=== PATIENT | female | born 1965 | race Caucasian/White ===

== ENCOUNTER 2019-07-02 11:44 | Inpatient (IN) ==
[2019-07-02] MEDS ORDERED: ONDANSETRON 4 MG/2 ML VIAL IV ONE (12:09)
[2019-07-02] MEDS ORDERED: HYDROmorphone 2 MG/ML VIAL IV PRN (12:09)
[2019-07-02] MEDS ORDERED: LACTATED RINGERS 1,000 ML IV ONE (12:09)
--- NOTE | 2019-07-02 12:12 | Emergency Department Note ---
Nausea/Vomiting/Diarrhea HPI - General Chief complaint: Nausea/Vomiting/Diarrhea Stated complaint: abdominal pain vomiting Time Seen by Provider: 07/02/19 12:01 Source: patient Mode of arrival: ambulatory Limitations: no limitations - History of Present Illness HPI Narrative: This patient has had left lower quadrant pain with nausea vomiting since yeste rday. She has had it before and it got better on its own. She is never been diagnosed with diverticulitis. Nothing makes pain worse but she tries to drink fluids she gets nauseated and comes right back up. She has not been able take any of her current medications. She does have a history of congestive heart failure and some congenital heart disease. She has had no recent edema. No recent cough sore throat or shortness of breath. MD complaint: nausea, vomiting, abdominal pain Onset (ago): hour(s) Description of Vomiting: watery Associated Abdominal Pain: Yes Location of pain: LLQ Severity: moderate Quality: stabbing Consistency: constant Improves with: none Worsens with: none - Related Data Home Medications Medication Instructions Recorded Confirmed Carvedilol [Coreg] 0 mg PO BID 10/28/15 07/02/19 Dabigatran Etexilate Mesylate 0 mg PO BID 10/28/15 10/28/15 [Pradaxa] Furosemide [Lasix] 40 mg PO DAILY 10/28/15 07/02/19 Levothyroxine Sodium [Synthroid] 200 mcg PO DAILY 10/28/15 07/02/19 Spironolactone [Aldactone] 0 mg PO DAILY 10/28/15 07/02/19 Lisinopril [Zestril] 2.5 mg PO DAILY 07/02/19 07/02/19 Sotalol HCl [Sorine] 80 mg PO BID 07/02/19 07/02/19 Allergies Allergy/AdvReac Type Severity Reaction Status Date / Time codeine Allergy Mild ITCHING Verified 10/28/15 18:36 iodine [IODINE] Allergy Unknown RASH Verified 10/28/15 18:36 Review of Systems All systems ED: reviewed and negative except as stated. Past Medical History - Past Medical History [facility] Narrative: Medical History Pain of left calf (Acute) Medical history: Reports: atrial fibrillation, CHF Surgical history ED: Reports: non-contributory, other (She had a cardiac ablation last year for atrial fibrillation.) - Social History smoking status: Never smoker Physical Exam Limitations: no limitations General appearance: alert Head: atraumatic Eye: Present: normal appearance ENT: Present: normal exam Neck: Present: normal inspection Chest: Present: normal inspection Respiratory: Present: normal lung sounds bilaterally Cardiovascular: Present: regular rate, normal rhythm, normal heart sounds Abdominal: Present: soft, tenderness, normal bowel sounds. Absent: distention, guarding, rebound, rigidity Abdominal tenderness: Present: LLQ, mild Neurological: Present: alert Psychiatric: Present: normal affect Skin: Present: warm, dry Course Vital Signs Temperature 98.3 F 07/02/19 11:48 Pulse Rate 70 07/02/19 11:48 Respiratory Rate 16 07/02/19 11:48 Blood Pressure 129/75 07/02/19 11:48 Pulse Oximetry (%) 97 07/02/19 11:48 Temperature 98.3 F 07/02/19 11:48 Pulse Rate 70 07/02/19 12:47 Respiratory Rate 16 07/02/19 11:48 Blood Pressure 111/84 07/02/19 12:46 Pulse Oximetry (%) 95 07/02/19 12:47 Nausea/Vomiting/Diarrhea - MDM Narrative Medical decision making narrative: CT scan showed a partial small bowel obstruction in the jejunal area. No evidence of diverticulitis. No other pathology. Patient tells me that the only surgery she has had was hernia mesh repair in her lower abdomen where she had had a pacemaker placed when she was a child. Her pacemaker is now been placed in the usual position. - Lab Data Lab results reviewed: Yes I reviewed the patient's lab results. Result diagrams: 07/02/19 12:09 07/02/19 12:09 Lab Results 07/02/19 07/02/19 Range/Units 12:09 12:09 WBC 9.6 (4.50-11.00) K/mcL RBC 4.47 (3.59-5.38) M/mcL Hgb 15.4 (11.2-15.7) g/dL Hct 43.6 (34.1-44.9) % MCV 97.5 (80.0-100.0) fL MCH 34.5 H (26.0-34.0) pg MCHC 35.3 (31.0-36.0) g/dL RDW 12.5 (11.5-14.5) % Plt Count 172 (140-440) K/mcL MPV 10.3 (7.4-10.4) fL Gran % 81.4 H (38.0-78.0) % Lymph % (Auto) 10.6 L (15.5-49.0) % Delta % (Auto) 7.5 (1.0-12.0) % Eos % (Auto) 0.2 (0.0-7.0) % Baso % (Auto) 0.3 (0.0-2.0) % Gran # 7.85 (1.80-8.00) K/mcL Lymph # (Auto) 1.02 L (1.50-4.80) K/mcL Delta # (Auto) 0.72 (0.10-0.90) K/mcL Eos # (Auto) 0.02 (0.00-0.70) K/mcL Baso # (Auto) 0.03 (0.00-0.30) K/mcL Sodium 136 (133-145) mmol/L Potassium 3.5 (3.3-5.1) mmol/L Chloride 92 L (96-108) mmol/L Carbon Dioxide 29 (22-30) mmol/L Anion Gap 15.0 (8-16) BUN 22 H (6-20) mg/dl Creatinine 0.8 (0.6-1.1) mg/dl GFR Calculation 85 Glucose 121 H (70-105) mg/dL Calcium 9.7 (8.6-10.4) mg/dl Total Bilirubin 4.3 H (0.0-1.0) mg/dL AST 27 (0-37) U/l ALT 28 (0-40) U/l Alkaline Phosphatase 113 (39-117) U/L Total Protein 8.4 (5.9-8.4) gm/dL Albumin 4.8 (3.2-5.2) gm/dL Globulin 3.6 (2.2-3.7) gm/dL Albumin/Globulin Ratio 1.3 (1.0-2.3) - Radiology Data Radiology results reviewed: Yes I reviewed the patient's radiology results. Disposition Pt seen by HOUSEHOLD PERSONAL ASSISTANT/PA only: No Clinical Impression: Partial small bowel obstruction Disposition: Xfer As Outpt/Obs ([facility]) Condition: Good Referrals: Evelin Oden ARNP [Primary Care Provider] - Time of Disposition: 13:37
[2019-07-02 12:52] LABS: Basophils # (Auto) 0.03 K/mcL (0.00-0.30); Basophils % (Auto) 0.3 % (0.0-2.0); Eosinophils # (Auto) 0.02 K/mcL (0.00-0.70); Eosinophils % (Auto) 0.2 % (0.0-7.0); Granulocytes % (Auto) 81.4 % (38.0-78.0); Hematocrit 43.6 % (34.1-44.9); Hemoglobin 15.4 g/dL (11.2-15.7); Lymphocytes # (Auto) 1.02 K/mcL (1.50-4.80); Lymphocytes % (Auto) 10.6 % (15.5-49.0); Mean Cell Volume 97.5 fL (80.0-100.0); Mean Corpuscular HGB Conc 35.3 g/dL (31.0-36.0); Mean Platelet Volume 10.3 fL (7.4-10.4); Monocytes # (Auto) 0.72 K/mcL (0.10-0.90); Monocytes % (Auto) 7.5 % (1.0-12.0); Platelet Count 172 K/mcL (140-440); RBC 4.47 M/mcL (3.59-5.38); Red Cell Distribution Width 12.5 % (11.5-14.5); WBC 9.6 K/mcL (4.50-11.00)
--- NOTE | 2019-07-02 13:03 | Cat Scan Report ---
CLINICAL INFORMATION: Left lower quadrant pain and vomiting COMPARISON: 01/15/[address] TECHNIQUE: Following enteric contrast, 80 cc of Isovue-370 were injected intravenously, and 60 seconds later, 0.625 mm helical slices were obtained from the mid heart through the subtrochanteric regions. Following reconstruction, 2.5 mm sagittal, coronal and axial reformatted images were processed and reviewed at bone, lung and soft tissue windows. Five minutes later, 0.625 mm helical slices were obtained from the mid heart through the kidneys and viewed at soft tissue windows.The exam was performed using radiation dose optimization techniques including, but not limited to, automated exposure control, adjustment of the mA and/or kV according to patient size and use of iterative reconstruction technique. FINDINGS: Lung bases show no abnormality. There are no effusions. The heart is markedly enlarged - pacer leads in stable satisfactory position. Abdominal images show mild fatty change within the liver which is mildly enlarged. 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 The hepatic veins are dilated suggesting elevated right heart pressures. No focal hepatic lesions. The pancreas, both adrenal glands, kidneys and aorta are normal. Spleen is unremarkable. Prominent accessory spleen seen in the paracolic gutter - as previously seen. Pelvic images pelvic images show the urinary bladder, postmenopausal uterus and region of the ovaries are all normal. The stomach, duodenum and multiple loops of jejunum are moderately dilated to the proximal ileal level in the mid abdomen. At this point, there is stricture or adhesions resulting in high-grade partial small bowel obstruction. The distal small bowel and colon are decompressed. Small amount of free fluid is noted in the true pelvis which may represent third spacing. A 5 cm anterior abdominal hernia contains only mesenteric fat which is unchanged. Bone windows show extensive postsurgical changes no focal osseous lesions IMPRESSION: High-grade proximal ileal obstruction due to adhesion or stricture. Small amount of free fluid in the true pelvis suggest early third spacing. No free air. Prominent accessory spleen in the left paracolic gutter. 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 Mild hepatic enlargement with dilated hepatic veins suggesting mild congestive hepatopathy related to elevated right heart pressures. Interpreted and Authenticated by: Branden Alicia 07/02/19
[2019-07-02 13:13] LABS: ALT/SGPT 28 U/l (0-40); AST/SGOT 27 U/l (0-37); Albumin 4.8 gm/dL (3.2-5.2); Albumin/Globulin Ratio 1.3 (1.0-2.3); Alkaline Phosphatase 113 U/L (39-117); Bilirubin,Total 4.3 mg/dL (0.0-1.0); Blood Urea Nitrogen 22 mg/dl (6-20); Calcium 9.7 mg/dl (8.6-10.4); Carbon Dioxide 29 mmol/L (22-30); Chloride 92 mmol/L (96-108); Globulin 3.6 gm/dL (2.2-3.7); Glomerular Filtration Rate 85; Glucose 121 mg/dL (70-105)
[2019-07-02] MEDS ORDERED: PROMETHAZINE 25 MG/ML VIAL IM PRN (13:39)
[2019-07-02 14:41] LABS: Appearance,Urine CLEAR; Bacteria,Urine 0 /hpf (0); Bilirubin,Urine NEG (NEG); Color,Urine YELLOW; Culture Indicated,Urine NO; Glucose,Urine (UA) NEGATIVE (NEG); Ketones,Urine 20 mg/dL (NEG); Leukocyte Esterase,Urine NEG /uL (NEG); Mucus,Urine FEW /hpf (0); Nitrate,Urine NEG (NEG); Protein,Urine NEG (NEG); Urine Blood NEG mg/dL (<0.03); Urine RBC 2 /hpf (0-1); Urine Squamous Epithelial Cell 1 /hpf (0-4); Urine WBC 1 /hpf (0-4); Urobilinogen,Urine NEG (NEG)
[2019-07-02] MEDS ORDERED: ONDANSETRON 4 MG/2 ML VIAL IV PRN (15:23)
[2019-07-02] MEDS ORDERED: BENZOCAINE 1 SPRAY BOTTLE TOPICAL PRN (15:24)
[2019-07-02] MEDS ORDERED: METOPROLOL TARTRATE 5 MG/5 ML VIAL IV PRN (15:33)
--- NOTE | 2019-07-02 15:42 | General Surg History&Physical ---
History of Present Illness Patient information: Note initiated : 07/02/19 at 3:36 pm Service Date, if different from initiated Date: [] Patient: Peg Kitchen a 53 y/o F admitted on 07/02/19 for abdominal pain vomiting. Chief Complaint: [] Chief complaint: Nausea & vomiting HPI: Ms. Kitchen is a 53 year old F with multiple prior cardiac surgeries secondary to a congenital heart defect. VSD, PDA,etc, She has had pacemaker since those surgeries and about 10-15 years ago she had her pacemaker placed transvenously and her abdominal battery pack was removed but for some reason she had a hernia repair done with mesh at the same time. She has not had any other abdominal surgery and has not had any problems with bowel obstructions or abdominal surgery in the interviening 15 or so years. Starting yesterday she c/o vague abdominal symptoms and has vomited multiple times in the past 24-[address] scan done thru the ED show a high grade SBO presumptively from adhesions. Review of Systems - Constitutional no anorexia, no chills, no fatigue - EENT Nose, mouth and throat: no abnormal hearing, no headache(s) - Cardiovascular leg edema, other (permanently paced heart rhythm), no chest pain, no chest pain at rest, no claudication - Respiratory no cough, no dyspnea, no dyspnea on exertion - Gastrointestinal abdominal pain, belching, bloating, change in bowel habits, vomiting, no diarrhea, no melena - Musculoskeletal no atrophy, no numbness, no tingling - Integumentary no change in hair, no change in nails, no change in pigmentation, no rash - Neurological no abnormal hearing, no abnormal movements, no abnormal speech, no behavioral ch anges, no dizziness, no focal weakness - Psychiatric no anxiety, no auditory hallucinations, no behavioral changes, no change in appetite - Endocrine no change in body appearance, no cold intolerance, no excessive sweating, no fatigue, no flushing, no heat intolerance - Hematologic/Lymphatic no easy bleeding, no easy bruising Past History Past medical history: As per HPI, cronic CHF and Paced heart rhythm secondary to Congenital Heart defects Past surgical history: multiple pace makers, Ventral hernia repair with mesh 15+ years ago Past family history: not contributory to this present problem Past social history: Not , no history of smoking or other tobacco use. On Disability because of her chronic heart problems Medications and Allergies Home Medications Medication Instructions Recorded Confirmed Type Carvedilol [Coreg] 12.5 mg PO BID 10/28/15 07/02/19 History Furosemide [Lasix] 40 mg PO DAILY 10/28/15 07/02/19 History Levothyroxine Sodium [Synthroid] 200 mcg PO DAILY 10/28/15 07/02/19 History Spironolactone [Aldactone] 0 mg PO DAILY 10/28/15 07/02/19 History Aspirin [Adult Low Dose Aspirin EC] 1 tab PO DAILY 07/02/19 07/02/19 History Lisinopril [Zestril] 2.5 mg PO DAILY 07/02/19 07/02/19 History Sotalol HCl [Sorine] 80 mg PO BID 07/02/19 07/02/19 History Allergies Allergy/AdvReac Type Severity Reaction Status Date / Time codeine Allergy Mild ITCHING Verified 10/28/15 18:36 iodine [IODINE] Allergy Unknown RASH Verified 10/28/15 18:36 Exam Temp Pulse Resp BP Pulse Ox 98.3 F 70 16 119/64 97 07/02/19 11:48 07/02/19 14:30 07/02/19 14:30 07/02/19 14:30 07/02/19 14:30 - General physical appearance well developed, well nourished, no distress, moderate pain - Eyes normal ocular movement. negative: deviation, loss of movement - ENT normal nares, no hearing loss, no congestion - Head Head exam IM: Present: atraumatic, normal inspection, normocephalic - Neck no masses, no bruits - Cardiovascular Cardiovascular exam IM: Present: normal rate and rhythm - Respiratory normal respiratory effort, clear to percussion, clear to auscultation - Abdomen Abdomen: Present: tender, surgical scars, distended. Absent: bowel sounds, wound - Genitourinary Present: normal external genitalia - Integumentary Present: no rash, no abnormal pigmentation - Neurologic Present: normal coordination, normal sensation. Absent: disoriented - Musculoskeletal Present: normal posture - Psychiatric Present: oriented to time, oriented to person, oriented to place, speech is normal, memory intact Results - Results CT scan - abdomen: report reviewed, image reviewed Assessment and Plan (1) Congenital heart defect no changes to present meds etc, will get IM consult for possible Surgical clearance and Meds while NPO Status: Chronic (2) Partial small bowel obstruction NG decompression and follow Status: Acute (3) CHF (congestive heart failure) per IM consult Status: Acute
--- NOTE | 2019-07-02 17:11 | Internal Medicine Consult Note ---
Medical - CN: HPI - Data of Consult Consult date: 07/02/19 Requesting physician: Carlos King Primary Care Provider: Evelin Oden - Consult Narrative Reason for consult: Management of med issues History of present illness: Ms. Kitchen is a 53 year old F with history of congenital heart disease, A. fib s tatus post recent ablation in February 2019 who was in her baseline state of health until 2 days prior to presentation started noting excessive abdominal pain associated with nausea and intractable bilious vomiting. She was admitted for bowel obstruction under surgery service. Hospital service was consulted by surgery for management of medical issues. Patient carries a complex past medical history including CHD VSD/PDA status post multiple surgeries in the early years and pacemaker placement 15 years ago. She follows up with [facility] Dr. Leung and has been on flecainide until recently. She underwent ablation in February 2019 has been in sinus since. Her current medications include Coreg/Pradaxa/sotalol. She also carries history of hypertension/hypothyroidism. I do not have access to recent echocardiogram from the EMR. I will attempt to obtain medical records from [facility] office on Wednesday. She is currently n.p.o./NG decompression and likely undergo surgery. She has not taken her regular cardiac medications. At the time of evaluation patient is alert and oriented. She has NG decompression ongoing. Denies abdominal pain, chest pain, bloody stool, bloody urine, headache photophobia. She has had one similar episode around March that self resolved. She has not had any hospitalization for congestive heart failure. Addendum Case discussed with Dr. Loo syrup maker cook at [facility]. She recommends using metoprolol as needed if patient demonstrated atrial fibrillation. Sotalol needs to be held and during reinitiation will require 2 sets of EKGs and 8 to 12 hours monitoring for QT interval. Review of systems A 10 point review system was performed and is negative except for ones cussed above CC: Carlos King MD Medical - CN: PM Medical history: Atrial fibrillation Hypothyroidism History of CHF Hypertension Surgical history: Congenital heart disease surgery in early years Pacemaker Recent ablation for A. fib February 2019 Pertinent family history: Sister breast cancer Social history: Lives with mother On chronic disability No smoking alcoholism Medical - CN: Meds Home Medications Medication Instructions Recorded Confirmed Type Carvedilol [Coreg] 12.5 mg PO BID 10/28/15 07/02/19 History Furosemide [Lasix] 40 mg PO DAILY 10/28/15 07/02/19 History Levothyroxine Sodium [Synthroid] 200 mcg PO DAILY 10/28/15 07/02/19 History Spironolactone [Aldactone] 0 mg PO DAILY 10/28/15 07/02/19 History Aspirin [Adult Low Dose Aspirin EC] 1 tab PO DAILY 07/02/19 07/02/19 History Lisinopril [Zestril] 2.5 mg PO DAILY 07/02/19 07/02/19 History Sotalol HCl [Sorine] 80 mg PO BID 07/02/19 07/02/19 History Allergies Allergy/AdvReac Type Severity Reaction Status Date / Time codeine Allergy Mild ITCHING Verified 10/28/15 18:36 iodine [IODINE] Allergy Unknown RASH Verified 10/28/15 18:36 Medical - CN: Exam - Constitutional Vitals: Temp Pulse Resp BP Pulse Ox 98.3 F 70 16 119/64 97 07/02/19 11:48 07/02/19 14:30 07/02/19 14:30 07/02/19 14:30 07/02/19 14:30 General appearance: no acute distress Exam: Alert oriented Head normocephalic Oral cavity dry Nose NG tube no ear discharge Neck no lymphadenopathy S1-S2 regular Pansystolic murmur Diminished breath sounds bases Abdomen/bowel sound sluggish, nontender nondistended Lower extremity no cyanosis clubbing or joint swelling Skin no suspicious lesion Psych alert cooperative Neuro nonfocal Medical - CN: Result - Labs CBC & Chem 7: 07/03/19 05:35 07/03/19 05:34 Labs: Short CBC 07/02/19 Range/Units 12:09 WBC 9.6 (4.50-11.00) K/mcL Hgb 15.4 (11.2-15.7) g/dL Hct 43.6 (34.1-44.9) % Plt Count 172 (140-440) K/mcL BMP 07/02/19 12:09 Sodium 136 Potassium 3.5 Chloride 92 L Carbon Dioxide 29 BUN 22 H Creatinine 0.8 Glucose 121 H Calcium 9.7 Liver Function 07/02/19 Range/Units 12:09 Total Bilirubin 4.3 H (0.0-1.0) mg/dL AST 27 (0-37) U/l ALT 28 (0-40) U/l Alkaline Phosphatase 113 (39-117) U/L Albumin 4.8 (3.2-5.2) gm/dL Urine 07/02/19 Range/Units 13:08 Urine Color Yellow Urine Appearance Clear Urine pH 7.0 (5.0-9.0) Ur Specific [place] 1.010 (1.003-1.030) Urine Protein Neg (NEG) mg/dL Urine Glucose (UA) Negative (NEG) mg/dL Medical - CN: A/P (1) Partial small bowel obstruction Status: Acute Assessment and plan: * Small bowel obstruction managed per surgery. Currently n.p.o./NG decompression Hospitalist consult for management of medical issues as below * History of CHD/CHF, complex past medical history including CHD/VSD/PDA. No recent echocardiogram available in chart. Patient has been on Coreg/sotalol and Pradaxa. At this time patient is n.p.o. recommend beta-hever IV and reserve amiodarone use for tachyarrhythmias if noted until further recommendations from [facility]. Assess with baseline EKG, start cardiac monitoring. Await records from [place] [facility] * History of atrial fibrillation currently in sinus status post ablation/on sotalol. Held in light of n.p.o.Continue with metoprolol as needed * History of hypertension -recommend IV labetalol/hydralazine for systolics over 140 until patient is able to take p.o. medications. * Hypothyroidism hold thyroxine until able to take orally * Prophylaxis currently on heparin Plan * IV beta-hever/IV amiodarone if indicated(evidence of A. fib) * Telemetry monitoring * baseline EKG * restart antihypertensives for systolics over 140 including hydralazine/labetalol * Bowel suction management per surgery
[2019-07-02] MEDS ORDERED: hydrALAZINE 20 MG/ML VIAL IV PRN (17:15)
[2019-07-02] MEDS: DEXTROSE 5%-1/2NS W/20MEQ KCL 1,000 ML IV SCH (17:20)
[2019-07-02] MEDS: HYDROmorphone 2 MG/ML VIAL IV PRN ×2 (18:23→22:41)
--- NOTE | 2019-07-02 18:30 | XRay Report ---
CLINICAL INFORMATION: ng tube placement - small bowel obstruction COMPARISON: Abdomen and pelvic CT 07/02/2019 FINDINGS: NG tube overlies the gastric body. The stomach and multiple loops of small bowel are moderately dilated compatible with high-grade small bowel obstruction. There is no free air. IMPRESSION: NG tube in satisfactory position tip in the gastric body. High-grade partial small bowel obstruction Interpreted and Authenticated by: Branden Alicia 07/02/19
[2019-07-02] MEDS: HEPARIN 5,000 UNIT/ML VIAL SQ SCH (20:02)
[2019-07-02] MEDS: FAMOTIDINE/PF 20 MG/2 ML VIAL IV SCH (20:02)
[2019-07-02] MEDS: 0.9 % SODIUM CHLORIDE 10 ML SYRINGE IV SCH (20:02)
[2019-07-03] MEDS: DEXTROSE 5%-1/2NS W/20MEQ KCL 1,000 ML IV SCH ×2 (00:18→08:44)
[2019-07-03] MEDS: HYDROmorphone 2 MG/ML VIAL IV PRN ×4 (03:07→11:01)
[2019-07-03] MEDS: 0.9 % SODIUM CHLORIDE 10 ML SYRINGE IV SCH (04:28)
[2019-07-03 06:31] LABS: Basophils # (Auto) 0.03 K/mcL (0.00-0.30); Basophils % (Auto) 0.4 % (0.0-2.0); Eosinophils # (Auto) 0.09 K/mcL (0.00-0.70); Eosinophils % (Auto) 1.1 % (0.0-7.0); Granulocytes % (Auto) 74.3 % (38.0-78.0); Hematocrit 38.9 % (34.1-44.9); Hemoglobin 13.4 g/dL (11.2-15.7); Lymphocytes # (Auto) 1.17 K/mcL (1.50-4.80); Lymphocytes % (Auto) 13.7 % (15.5-49.0); Mean Cell Volume 100.8 fL (80.0-100.0); Mean Corpuscular HGB Conc 34.4 g/dL (31.0-36.0); Mean Platelet Volume 10.1 fL (7.4-10.4); Monocytes % (Auto) 10.5 % (1.0-12.0); Platelet Count 141 K/mcL (140-440); RBC 3.86 M/mcL (3.59-5.38); Red Cell Distribution Width 12.6 % (11.5-14.5); WBC 8.6 K/mcL (4.50-11.00)
[2019-07-03 07:04] LABS: Blood Urea Nitrogen 19 mg/dl (6-20); Calcium 8.7 mg/dl (8.6-10.4); Carbon Dioxide 31 mmol/L (22-30); Chloride 97 mmol/L (96-108); Glomerular Filtration Rate 100; Glucose 137 mg/dL (70-105)
--- NOTE | 2019-07-03 07:58 | XRay Report ---
CLINICAL INFORMATION: Follow-up small bowel obstruction TECHNIQUE: Supine and upright abdomen COMPARISON: Previous CT scan dated 07/02/2019. Previous plain film examination dated 07/02/2019 FINDINGS: Bowel gas pattern is abnormal. There continues to be some fecal material within the colon. Prominent gas-filled small bowel. This measures approximately 4 cm in cross-sectional diameter. There are scattered air-fluid levels. Partial remains consistent with at least partial mechanical small bowel obstruction. No pneumoperitoneum. No biliary or portal venous gas. No pneumatosis. There are long length spinal rods and laminar hooks in the lower thoracic and lumbar spines. There are multiple surgical clips in the upper abdomen and lower thorax IMPRESSION: 1. Abnormal bowel gas pattern consistent with at least partial mechanical small bowel obstruction 2. No significant interval change since 07/02/2019 Interpreted and Authenticated by: Branden Hester 07/03/19
--- NOTE | 2019-07-03 08:04 | Internal Med Progress Note ---
Medical - PN: Subj Patient information: Note initiated : 07/03/19 at 8:03 am Service Date, if different from initiated Date: [] Patient: Peg Kitchen a 53 y/o F admitted on 07/02/19 for abdominal pain vomiting. Chief Complaint: [] Interval history: Ms. Kitchen is a 53 year old F with history of congenital heart disease, A. fib status post recent ablation in February 2019 who was in her baseline state of health until 2 days prior to presentation started noting excessive abdominal pain associated with nausea and intractable bilious vomiting. She was admitted for bowel obstruction under surgery service. Hospital service was consulted by surgery for management of medical issues. Patient carries a complex past medical history including CHD VSD/PDA status post multiple surgeries in the early years and pacemaker placement 15 years ago. She follows up with [facility] cardiology Dr. Leung and has been on flecainide until recently. She underwent ablation in February 2019 has been in sinus since. Her current medications include Coreg/Pradaxa/sotalol. She also carries history of hypertension/hypothyroidism. I do not have access to recent echocardiogram from the EMR. I will attempt to obtain medical records from [facility] cardiology office on Wednesday. She is currently n.p.o./NG decompression and likely undergo surgery. She has not taken her regular cardiac medications. At the time of evaluation patient is alert and oriented. She has NG decompression ongoing. Denies abdominal pain, chest pain, bloody stool, bloody urine, headache photophobia. She has had one similar episode around March t self resolved. She has not had any hospitalization for congestive heart failure. Addendum Case discussed with Dr. Loo outside plant cable engineer at [facility]. She recommends using metoprolol as needed if patient demonstrated atrial fibrillation. Sotalol needs to be held and during reinitiation will require 2 sets of EKGs and 8 to 12 hours monitoring for QT interval. 07/02-Case discussed with surgery. Patient remains a high risk in terms of complexity and underlying comorbidities including history of congenital heart disease. Surgeon of the opinion that the patient would benefit from transfer to tertiary center due to high level of expertise/availability of cardiology services. I agree with the surgeons opinion patient should be transferred for further management. At this point time patient is currently n.p.o. on NG tube decompression. Home medications have been held at this time. - Constitutional Vitals: Vital Signs Temp Pulse Resp BP Pulse Ox 99.0 F 72 18 108/67 91 07/03/19 03:45 07/03/19 03:45 07/03/19 03:45 07/03/19 03:45 07/03/19 03:45 Period Temp Pulse Resp BP Sys/Michel Pulse Ox Last 24 Hr 98.3 F-99.2 F 67-72 14-20 70-153/55-109 91-98 Intake and Output 07/02/19 07/03/19 07/03/19 21:59 05:59 13:59 Intake Total 871 Output Total 800 800 Balance -800 71 Weight 171 lb 5 oz Intake & Output: Intake & Output 07/02/19 07/03/19 07/03/19 21:59 05:59 13:59 Intake Total 871 Output Total 800 800 Balance -800 71 Weight 171 lb 5 oz Intake: IV 871 Dextrose 5%-1/2Ns W/20Meq KCl 1 871 ,000 ml @ 125 mls/hr IV .Q8H [facility] Rx#:[id number] Output: Gastric Drainage 800 800 Right Nare 800 800 Other: # Voids 1 General appearance: no acute distress Exam: Alert oriented NG decompression Nontender nondistended abdomen Anxious Medical - PN: Obj Da - Labs CBC & Chem 7: 07/03/19 05:35 07/03/19 05:34 Labs: Abnormal Lab Results 07/03/19 07/03/19 07/02/19 05:35 05:34 13:08 MCV 100.8 H MCH 34.7 H Gran % Lymph % (Auto) 13.7 L Lymph # (Auto) 1.17 L Chloride Carbon Dioxide 31 H BUN Glucose 137 H Total Bilirubin Urine Ketones 20 A Urine RBC 2 H 07/02/19 07/02/19 12:09 12:09 MCV MCH 34.5 H Gran % 81.4 H Lymph % (Auto) 10.6 L Lymph # (Auto) 1.02 L Chloride 92 L Carbon Dioxide BUN 22 H Glucose 121 H Total Bilirubin 4.3 H Urine Ketones Urine RBC Meds: Medications Benzocaine (Cetacaine) 1 spray TOPICAL PRN PRN PRN Reason: mouth pain Famotidine (Pepcid) 20 mg IV Q12 [facility] Last Admin: 07/02/19 20:02 Dose: 20 mg Documented by: Heparin Sodium (Porcine) (Heparin) 5,000 unit SQ Q12 [facility] Last Admin: 07/02/19 20:02 Dose: 5,000 unit Documented by: Hydralazine HCl (Apresoline) 10 mg IV Q4-6HP PRN PRN Reason: Hypertension greater than 140 Hydromorphone HCl (Dilaudid) 0.5 mg IV Q2HP PRN; Protocol PRN Reason: Per Pain Protocol Last Admin: 07/03/19 05:44 Dose: 0.5 mg Documented by: Potassium Chloride/Dextrose/Sod Cl (Dextrose 5%-1/2ns W/20meq Kcl) 1,000 mls @ 125 mls/hr IV .Q8H [facility] Last Admin: 07/03/19 00:18 Dose: 125 mls/hr Documented by: Ondansetron HCl (Zofran) 4 mg IV Q6HP PRN PRN Reason: Nausea And Vomiting Promethazine HCl (Phenergan) 12.5 mg IM Q6HP PRN PRN Reason: Nausea And Vomiting Sodium Chloride (Saline Flush) 10 ml IV Q8 [facility] Last Admin: 07/03/19 04:28 Dose: Not Given Documented by: Medical - PN: A/P - Time Spent With Patient Total time spent is greater than 50% in coordination of care (as documented) at patient's floor/unit and/or counseling patient: 25 - 35 minutes (1) Partial small bowel obstruction Status: Acute Assessment and plan: * Small bowel obstruction management per surgery. Currently n.p.o./NG decompression. Patient will likely transfer to tertiary center in light of multiple cardiac comorbidities and complex nature of illness Hospitalist consult for management of medical issues as below * History of CHD/CHF, complex past medical history including CHD/VSD/PDA. Case discussed with cardiology at [place]. Patient has been on Coreg/sotalol and Pradaxa. At this time patient is n.p.o. recommend continuing beta-hever IV and reserve amiodarone use for tachyarrhythmias if noted. Baseline EKG a sensed V paced rhythm, continuing cardiac monitoring. Await transfer to [place] * History of atrial fibrillation currently in sinus status post ablation/on sotalol. Held in light of n.p.o.Continue with metoprolol as needed * History of hypertension -recommend IV labetalol/hydralazine for systolics over 140 until patient is able to take p.o. medications. * Hypothyroidism hold thyroxine until able to take orally * Prophylaxis currently on heparin Plan * Continue as needed IV beta-hever * Telemetry monitoring * IV hydralazine/labetalol if systolics over 140 * Bowel obstruction management per surgery, will likely transfer to tertiary center today Current Visit: Yes Medical - PN: Qual - Stroke Symptom Onset Unknown: No - VTE Deep Vein Thrombosis/Pulmonary Embolism Present on Admission: No
[2019-07-03] MEDS: HEPARIN 5,000 UNIT/ML VIAL SQ SCH (08:44)
[2019-07-03] MEDS: FAMOTIDINE/PF 20 MG/2 ML VIAL IV SCH (09:37)
--- NOTE | 2019-07-03 10:10 | Transfer Summary ---
DATE OF ADMISSION: 07/02/2019 DATE OF TRANSFER: ADMITTING DIAGNOSES: 1. Possible small bowel obstruction. 2. Congenital heart defects with need for permanent pacer. ADMITTING SURGEON: Carlos King MD CONSULTING PHYSICIANS: Yordan Adkins MD, Internal Medicine. The patient will be transferred to [place], Surgery Department with consultation to Cardiology. HOSPITAL COURSE: This is a 53-year-old female who had a congenital heart defect since a baby, had multiple operations at that time including a permanent pacemaker, which was placed in her abdomen at that time. About 15 years ago she had abdominal surgery and the pacemaker was removed from that area and placed in the standard transvenous placement and during that surgery a hernia was repaired apparently with mesh. The patient has not had any prior bowel obstruction problems and no other abdominal surgery, but presented approximately 48 hours before this, 24 hours before admission with nausea and vague abdominal pain and was seen in the emergency room in [place] at [facility], diagnosed with a possible small bowel obstruction but based on the adhesions. She was temporized with a nasogastric tube and resuscitated, but subsequent x-rays do not show complete resolution and there is no air in the colon on this morning's flat plate films. She has not passed gas for approximately 48 hours. The complication of her medical cardiac issues, having had an ablation procedure approximately 4 months ago for atrial fibrillation, and she is on multiple medications including Coreg, Pradaxa and sotalol which she has not had for approximately 2 days now. PLAN: Again, after discussion with Internal Medicine at this hospital, we decided it was in her best interest to transfer to a hospital with Cardiology available and after discussing with Surgery at [facility], they have accepted her. DISPOSITION: Transfer to [facility] in [place]. She will be transferred with IVs and a [facility]og[facility]. RPL:kh Job ID: [id number] Doc ID: [id number] Carlos King MD
== END 2019-07-03 11:15 | disposition short-term general hospital (02) | DRG 389 ==
LOC: ED 11:44 → MEDSUR 14:30 → OBSVTOIN 14:31 → INTOOBSV 14:31
PROVIDERS: ADMIT Specialist; ATTEND Specialist

== ENCOUNTER 2020-12-15 17:26 | Inpatient (IN) ==
[2020-12-15] MEDS ORDERED: 0.9 % SODIUM CHLORIDE 1,000 ML IV ONE (17:34)
--- NOTE | 2020-12-15 17:59 | EKG ---
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
--- NOTE | 2020-12-15 18:10 | Emergency Department Note ---
Syncope HPI General Chief Complaint: Syncope Stated Complaint: Synocpal Time Seen by Provider: 12/15/20 17:32 Source: EMS Mode of arrival: EMS Limitations: no limitations History of Present Illness HPI Narrative: Peg is a 55-year-old female who comes to the emergency department for evaluation of syncope that occurred earlier this evening when she was sitting on the couch at home with her . In the room she is not in any distress nor she complaining of any shortness of breath, chest pain, or diaphoresis. The patient does have a significant history of congestive heart failure and recently saw her driver material handler where an echocardiogram revealed that her ejection fraction was down to 15% so her dosage of Entresto was doubled from the lowest dose 9 days ago. The patient is also taking lisinopril, carvedilol, furosemide, and spironolactone for treatment of her congestive heart failure. The patient denies any history of recent orthopnea, paroxysmal nocturnal dyspnea, or lower extremity swelling. No history of ACS, PE, or aortic injury. The patient denies fever, nausea, vomiting, or chills. She has had no other changes to her medications made besides her Entresto. Patient reports that she does have a pacemaker that she has been living with ever since the age of 13 due to a history of patent foramen ovale that was surgically corrected with open heart surgery. Patient also has a history of A. fib which she is anticoagulated for on Eliquis. The patient is not reporting reduced food or water intake over the past few days. Patient states that she has not been experiencing any urinary issues or bowel issues. Patient is pleasant in the emergency department with no active complaints but her history is concerning for cardiogenic syncope so she will get worked up in the emergency department for ACS and we will likely have to consult with cardiology at [facility] as there is no service here at the hospital. No other modifying factors. Related Data Home Medications Medication Instructions Recorded Confirmed furosemide [Lasix] 40 mg PO DAILY 10/28/15 07/17/20 apixaban 5 mg tablet 5 mg PO BID 05/23/20 07/17/20 dofetilide 500 mcg capsule 500 mcg PO Q12H 05/23/20 07/17/20 magnesium 400 mg PO QDAY 05/23/20 07/17/20 spironolactone 25 mg tablet 25 mg PO DAILY tab 05/23/20 07/17/20 carvedilol 12.5 mg tablet 12.5 mg PO BID 06/12/20 07/17/20 sacubitril 97 mg-valsartan 103 mg 1 tab PO BID tab 07/17/20 07/17/20 tablet Previous Rx's Medication Instructions Recorded levothyroxine 200 mcg tablet 200 mcg PO DAILY #90 tab 07/16/20 levothyroxine 175 mcg tablet 175 mcg PO QDAY #30 tab 10/16/20 levothyroxine 150 mcg tablet 150 mcg PO QDAY #30 tab 10/22/20 Allergies Allergy/AdvReac Type Severity Reaction Status Date / Time codeine Allergy Mild ITCHING Verified 12/15/20 17:34 iodine [IODINE] Allergy Unknown RASH Verified 12/15/20 17:34 Review of Systems ROS ROS Narrative: Narrative: All systems ED: reviewed and negative except as stated. [facility] Narrative Patient History Narrative: Narrative: Medical/Surgical/Family History All Active Problems (Updated 12/15/20 @ 19:49 by Jag Bee PA-C) Congenital heart defect (Chronic) CHF (congestive heart failure) (Chronic) Pacemaker (Chronic) History of heart surgery (Chronic ~1970) History of surgery (Chronic ~2017) Atrial fibrillation (Chronic) Acquired hypothyroidism (Chronic) Anemia (Acute) Hypotension (Chronic) Medicare annual wellness visit, subsequent (Acute) Iron overload (Acute) Syncope (Acute) Medical History (Updated 12/15/20 @ 19:49 by Jag Bee PA-C) Acquired hypothyroidism Anemia Atrial fibrillation CHF (congestive heart failure) Congenital heart defect Hyperglycemia Hypotension Iron overload Medicare annual wellness visit, subsequent Pacemaker Pain of left calf Partial small bowel obstruction Surgical History History of back surgery [facility], Bone fusion History of cardiac radiofrequency ablation X2 History of heart surgery (~1970) Atrial septal defect History of open heart surgery (~1969) History of surgery (~2017) Pacemaker Insertion Family History Mother Cancer Hypertension Family/Other Cancer Aunt Sister Cancer Diabetes mellitus, type II Hypertension Grandmother Hypertension Maternal Social History Smoking Status: Never smoker Alcohol Intake Frequency: holiday/special occasion only Substance Use: does not use Exam Narrative Narrative: Narrative: General Limitations: no limitations General appearance: Present alert Head Head: Present atraumatic, normocephalic and normal inspection Eye Eye: Present normal appearance, PERRL and EOMI ENT ENT: Present normal exam, normal oropharynx and mucous membranes moist Neck Neck: Present normal inspection, full ROM and trachea midline Chest Chest: Present normal inspection and symmetric chest wall rise Respiratory Respiratory: Present normal lung sounds bilaterally Cardiovascular Cardiovascular: Present regular rate and normal rhythm Adbominal Abdominal: Present soft Extremities Extremities: Present normal inspection, full ROM and normal capillary refill Back Back: Present normal inspection and full ROM Neurological Neurological: Present alert and oriented X3 Psychiatric Psychiatric: Present normal affect and normal mood Skin Skin: Present warm (WNL), dry and normal color Course Course Course Narrative: 1807: Patient's history is concerning for cardiogenic syncope. Patient will require a pacemaker interrogation which does not appear to be possible at this facility and cardiology services which are also not accessible at this facility. This could be syncope caused by her recent change in her medication but given that the patient has an EF of 15 and has a complex past medical history of congestive heart failure with a number of different medications my recommendation would be for monitoring and follow-up with a driver material handler for medication review and further work-up. At this point time the patient will have an EKG performed as well as a chest x-ray, basic labs, troponin, and BNP for further evaluation. The patient does report that she has been discussing with her driver material handler about the potential for surgery involving either an LVAD or heart replacement and the mentions to me that there wa s also discussion about placing an additional lead in her pacemaker. At this point time the patient is chest pain-free and is not in any distress and is receiving IV fluid to help her with her hypotension. Patient has been discussed with Dr. Yadav. 1942: Labs have been reviewed and the patient does have significant findings with a sodium of 116 as well as a potassium of 2.7. Patient's hypokalemia will be treated with a potassium rider as well as oral potassium at 40 mEq. Patient's fluid has been discontinued after discovery of her sodium and at this point time the patient is mentating well and is not suffering from any seizure- like activity. I did speak with driver material handler Dr. Cole with [facility] to discuss the patient and he has been updated on the patient's history and status but at this point time is unsure of the patient's syncope is due to her electrolyte deficiency or if this is due to a cardiac arrhythmia. The patient will need to have her pacemaker interrogated by a pacemaker rep which the nursing staff is working on contacting. Patient will be boarded in the emergency department as she is not safe for discharge and we are unsure of where she will be transferred. If the patient syncope is due to an arrhythmia and she will have to be transferred to a hospital with cardiology services. If the pacemaker interrogation does not show any abnormalities then we will consult the hospitalist service about admission here for correction of the patient's electrolyte abnormalities. At time of shift end, care of the patient has been handed over to Dr. Yadav. Assessment: Syncope. Hyponatremia. Hypokalemia. Treatment: Patient received fluid for hypotension. Potassium rider and oral potassium for hypokalemia. Cardiology consulted at [facility]. Patient still in the ER. Vital Signs Vital signs: Vital Signs Temperature 97.1 F 12/15/20 17:30 Pulse Rate 70 12/15/20 17:30 Respiratory Rate 18 12/15/20 17:30 Blood Pressure 67/36 12/15/20 17:30 Pulse Oximetry (%) 98 12/15/20 17:30 Temperature 97.1 F 12/15/20 17:30 Pulse Rate 74 12/15/20 19:22 Respiratory Rate 16 12/15/20 19:22 Blood Pressure 73/49 12/15/20 19:16 Pulse Oximetry (%) 97 12/15/20 19:22 [facility] Narrative Medical decision making narrative: 1808: Patient's history is concerning for cardiogenic syncope. Patient will require a pacemaker interrogation which does not appear to be possible at this facility and cardiology services which are also not accessible at this facility. This could be syncope caused by her r ecent change in her medication but given that the patient has an EF of 15 and has a complex past medical history of congestive heart failure with a number of different medications my recommendation would be for monitoring and follow-up with a driver material handler for medication review and further work-up. At this point time the patient will have an EKG performed as well as a chest x-ray, basic labs, troponin, and BNP for further evaluation. The patient does report that she has been discussing with her driver material handler about the potential for surgery involving either an LVAD or heart replacement and the mentions to me that there was also discussion about placing an additional lead in her pacema ker. At this point time the patient is chest pain-free and is not in any distress and is receiving IV fluid to help her with her hypotension. Patient has been discussed with Dr. Yadav. 1942: Labs have been reviewed and the patient does have significant findings with a sodium of 116 as well as a potassium of 2.7. Patient's hypokalemia will be treated with a potassium rider as well as oral potassium at 40 mEq. Patient's fluid has been discontinued after discovery of her sodium and at this point time the patient is mentating well and is not suffering from any seizure- like activity. I did speak with driver material handler Dr. Cole with [facility] to discuss the patient and he has been updated on the patient's history and status but at this point time is unsure of the patient's syncope is due to her electrolyte deficiency or if this is due to a cardiac arrhythmia. The patient will need to have her pacemaker interrogated by a pacemaker rep which the nursing staff is working on contacting. Patient will be boarded in the emergency department as she is not safe for discharge and we are unsure of where she will be transferred. If the patient syncope is due to an arrhythmia and she will have to be transferred to a hospital with cardiology services. If the pacemaker interrogation does not show any abnormalities then we will consult the hospitalist service about admission here for correction of the patient's electrolyte abnormalities. At time of shift end, care of the patient has been handed over to Dr. Yadav. Assessment: Syncope. Hyponatremia. Hypokalemia. Treatment: Patient received fluid for hypotension. Potassium rider and oral potassium for hypokalemia. Cardiology consulted at [facility]. Patient still in the ER. Lab Data Result diagrams: 12/15/20 17:54 12/15/20 17:53 Labs: Lab Results 12/15/20 12/15/20 12/15/20 Range/Units 17:53 17:53 17:53 Sodium 116 L* (133-145) mmol/L Potassium 2.7 L* (3.3-5.1) mmol/L Chloride 82 L (96-108) mmol/L Carbon Dioxide 14 L (22-30) mmol/L Anion Gap 20.0 H (8.0-16.0) BUN 29 H (6-20) mg/dL Creatinine 2.2 H (0.6-1.1) mg/dL GFR Calculation 25 Glucose 146 H (70-105) mg/dL Calcium 8.6 (8.6-10.4) mg/dL Total Bilirubin 1.0 (0.1-1.0) mg/dL AST 37 H (<32) U/L ALT 54 H (<40) U/L Alkaline Phosphatase 82 (39-117) U/L Troponin T < 0.01 (<0.03) ng/mL NT-Pro-B Natriuret Pep 1009.0 H (<125.0) pg/mL Total Protein 6.8 (5.9-8.4) gm/dL Albumin 4.0 (3.2-5.2) gm/dL Globulin 2.8 (2.2-3.7) gm/dL Albumin/Globulin Ratio 1.4 (1.0-2.3) ED POC Tests ED POC Tests: TANO - SARS Antigen Negative Discharge Plan Patient/Caregiver Discharge Instructions Pt seen by ARTIST SCIENTIFIC/PA only: No Clinical Impression: Syncope Instructions: Syncope (ED) Patient Disposition: Still a Patient Condition: Good Follow up with: Tremayne Narvaez MD [Primary Care Provider] - Prescriptions: No Action levothyroxine [Synthroid] 200 mcg tablet 200 mcg PO DAILY Qty: 90 RF: 0 Hold Instructions: Doctor's Order levothyroxine 175 mcg tablet 175 mcg PO QDAY Qty: 30 RF: 2 Hold Instructions: Doctor's Order levothyroxine 150 mcg tablet 150 mcg PO QDAY Qty: 30 RF: 2 carvedilol [Coreg] 12.5 mg tablet 12.5 mg PO BID RF: 0 Eliquis 5 mg tablet 5 mg PO BID RF: 0 dofetilide 500 mcg capsule 500 mcg PO Q12H RF: 0 magnesium 400 mg PO QDAY RF: 0 Entresto 97-103 mg tablet 1 tab PO BID RF: 0 furosemide [Lasix] 20 MG tablet 40 mg PO DAILY RF: 0 spironolactone 25 mg tablet 25 mg PO DAILY RF: 0
--- NOTE | 2020-12-15 19:06 | XRay Report ---
CLINICAL INFORMATION: Syncope COMPARISON: 09/25/2019 FINDINGS: The heart is moderately enlarged, but unchanged. Pacemaker leads in stable satisfactory position. Mediastinal widening is stable. Pulmonary vessels are mildly distended and there is minimal peribronchial vascular edema. No infiltrates or effusions. IMPRESSION: Mild CHF or volume overload. Interpreted and Authenticated by: Branden Alicia 12/15/20
[2020-12-15 19:20] LABS: ALT/SGPT 54 U/L (<40); AST/SGOT 37 U/L (<32); Albumin/Globulin Ratio 1.4 (1.0-2.3); Alkaline Phosphatase 82 U/L (39-117); Blood Urea Nitrogen 29 mg/dL (6-20); Calcium 8.6 mg/dL (8.6-10.4); Carbon Dioxide 14 mmol/L (22-30); Chloride 82 mmol/L (96-108); Globulin 2.8 gm/dL (2.2-3.7); Glomerular Filtration Rate 25; Glucose 146 mg/dL (70-105)
[2020-12-15] MEDS ORDERED: POTASSIUM CHLORIDE 20 MEQ TABLET PO ONE (19:27)
[2020-12-15] MEDS ORDERED: POTASSIUM CHLORIDE 20 MEQ in DEXTROSE 5% IN WATER 250 ML IV ONE ×2 (19:27→23:34)
--- NOTE | 2020-12-15 19:46 | Emergency Department Note ---
HPI General Chief complaint: Syncope Stated complaint: Synocpal Time Seen by Provider: 12/15/20 17:32 Source: EMS Mode of arrival: EMS Limitations: no limitations History of Present Illness HPI Narrative: Narrative: This patient was signed out to me at shift change by YUE Flores. Please see his note for complete details of the history and physical exam. Related Data Home Medications Medication Instructions Recorded Confirmed furosemide [Lasix] 40 mg PO DAILY 10/28/15 12/15/20 apixaban 5 mg tablet 5 mg PO BID 05/23/20 12/15/20 dofetilide 500 mcg capsule 500 mcg PO Q12H 05/23/20 12/15/20 magnesium 400 mg PO QDAY 05/23/20 07/17/20 spironolactone 25 mg tablet 25 mg PO DAILY tab 05/23/20 12/15/20 carvedilol 12.5 mg tablet 12.5 mg PO BID 06/12/20 12/15/20 sacubitril 97 mg-valsartan 103 mg 1 tab PO BID tab 07/17/20 12/15/20 tablet flecainide 100 mg PO Q12H 12/15/20 12/15/20 Previous Rx's Medication Instructions Recorded levothyroxine 150 mcg tablet 150 mcg PO QDAY #30 tab 10/22/20 Allergies Allergy/AdvReac Type Severity Reaction Status Date / Time codeine Allergy Mild ITCHING Verified 12/15/20 17:34 iodine [IODINE] Allergy Unknown RASH Verified 12/15/20 17:34 Review of Systems ROS ROS Narrative: Narrative: All systems ED: reviewed and negative except as stated. [facility] Narrative Patient History Narrative: Narrative: Medical/Surgical/Family History All Active Problems (Updated 12/15/20 @ 22:17 by Tang Blancas MD) Stage 2 acute kidney injury (Acute) Congenital heart defect (Chronic) CHF (congestive heart failure) (Chronic) Pacemaker (Chronic) History of heart surgery (Chronic ~1970) History of surgery (Chronic ~2017) Atrial fibrillation (Chronic) Acquired hypothyroidism (Chronic) Anemia (Acute) Hypotension (Chronic) Medicare annual wellness visit, subsequent (Acute) Iron overload (Acute) Syncope (Acute) Hyponatremia (Acute) Hypokalemia (Acute) Hypotension (Acute) Medical History Acquired hypothyroidism Anemia Atrial fibrillation CHF (congestive heart failure) Congenital heart defect Hyperglycemia Hypotension Iron overload Medicare annual wellness visit, subsequent Pacemaker Pain of left calf Partial small bowel obstruction Surgical History History of back surgery Isaacs Rods, Bone fusion History of cardiac radiofrequency ablation X2 History of heart surgery (~1970) Atrial septal defect History of open heart surgery (~1969) History of surgery (~2018) Pacemaker Insertion Family History Mother Cancer Hypertension Family/Other Cancer Aunt Sister Cancer Diabetes mellitus, type II Hypertension Grandmother Hypertension Maternal Social History Smoking Status: Never smoker Alcohol Intake Frequency: holiday/special occasion only Substance Use: does not use Exam Narrative Narrative: Narrative: This patient was signed out to me at shift change by YUE Flores. Please see his note for complete details of the history and physical exam. General Limitations: no limitations Course Course Course Narrative: This patient was signed out to me at shift change by YUE Flores. Please see his note for complete details of the history and physical exam. Vital Signs Vital signs: Vital Signs Temperature 97.1 F 12/15/20 17:30 Pulse Rate 70 12/15/20 17:30 Respiratory Rate 18 12/15/20 17:30 Blood Pressure 67/36 12/15/20 17:30 Pulse Oximetry (%) 98 12/15/20 17:30 Temperature 97.1 F 12/15/20 17:30 Pulse Rate 70 12/15/20 22:45 Respiratory Rate 18 12/15/20 22:45 Blood Pressure 84/47 12/15/20 22:46 Pulse Oximetry (%) 97 12/15/20 22:45 MDM MDM Narrative Medical decision making narrative: Narrative: This patient was signed out to me at shift change by YUE Flores. Please see his note for complete details of the history and physical exam. Pacemaker primary care sales representative reviewed the pacemaker interrogation remotely and states there have been no recent arrhythmias. 20:57 I spoke with the hospitalist, dr. blancas, who has agreed to admit this patient. Lab Data Result diagrams: 12/15/20 17:54 12/15/20 17:53 Labs: Lab Results 12/15/20 12/15/20 12/15/20 Range/Units 17:53 17:53 17:53 WBC (4.5-11.0) K/mcL RBC Hgb (11.2-15.7) g/dL Hct (34.1-44.9) % MCV MCH MCHC (31.0-36.0) g/dL RDW Plt Count (140-440) K/mcL MPV (7.4-10.4) fL Neut % (Auto) (38.0-78.0) % Lymph % (Auto) (15.5-49.0) % [place] % (Auto) (1.0-12.0) % Eos % (Auto) (0.0-7.0) % Baso % (Auto) (0.0-2.0) % Lymph # (Auto) (1.50-4.80) K/mcL [place] # (Auto) (0.10-0.90) K/mcL Eos # (Auto) (0.00-0.70) K/mcL Baso # (Auto) (0.00-0.30) K/mcL Absolute Neutrophils (1.80-8.00) K/mcL Sodium 116 L* (133-145) mmol/L Potassium 2.7 L* (3.3-5.1) mmol/L Chloride 82 L (96-108) mmol/L Carbon Dioxide 14 L (22-30) mmol/L Anion Gap 20.0 H (8.0-16.0) BUN 29 H (6-20) mg/dL Creatinine 2.2 H (0.6-1.1) mg/dL GFR Calculation 25 Glucose 146 H (70-105) mg/dL Calcium 8.6 (8.6-10.4) mg/dL Magnesium (1.6-2.5) mg/dL Total Bilirubin 1.0 (0.1-1.0) mg/dL AST 37 H (<32) U/L ALT 54 H (<40) U/L Alkaline Phosphatase 82 (39-117) U/L Troponin T < 0.01 (<0.03) ng/mL NT-Pro-B Natriuret Pep 1009.0 H (<125.0) pg/mL Total Protein 6.8 (5.9-8.4) gm/dL Albumin 4.0 (3.2-5.2) gm/dL Globulin 2.8 (2.2-3.7) gm/dL Albumin/Globulin Ratio 1.4 (1.0-2.3) TSH (0.27-5.01) uIU/mL 12/15/20 12/15/20 Range/Units 17:53 17:54 WBC 5.4 (4.5-11.0) K/mcL RBC TNP Hgb 10.8 L (11.2-15.7) g/dL Hct 34.0 L (34.1-44.9) % MCV TNP MCH TNP MCHC 31.8 (31.0-36.0) g/dL RDW TNP Plt Count 160 (140-440) K/mcL MPV 10.6 H (7.4-10.4) fL Neut % (Auto) 73.5 (38.0-78.0) % Lymph % (Auto) 12.3 L (15.5-49.0) % [place] % (Auto) 12.9 H (1.0-12.0) % Eos % (Auto) 1.1 (0.0-7.0) % Baso % (Auto) 0.2 (0.0-2.0) % Lymph # (Auto) 0.67 L (1.50-4.80) K/mcL [place] # (Auto) 0.70 (0.10-0.90) K/mcL Eos # (Auto) 0.06 (0.00-0.70) K/mcL Baso # (Auto) 0.01 (0.00-0.30) K/mcL Absolute Neutrophils 3.99 (1.80-8.00) K/mcL Sodium (133-145) mmol/L Potassium (3.3-5.1) mmol/L Chloride (96-108) mmol/L Carbon Dioxide (22-30) mmol/L Anion Gap (8.0-16.0) BUN (6-20) mg/dL Creatinine (0.6-1.1) mg/dL GFR Calculation Glucose (70-105) mg/dL Calcium (8.6-10.4) mg/dL Magnesium 1.9 (1.6-2.5) mg/dL Total Bilirubin (0.1-1.0) mg/dL AST (<32) U/L ALT (<40) U/L Alkaline Phosphatase (39-117) U/L Troponin T (<0.03) ng/mL NT-Pro-B Natriuret Pep (<125.0) pg/mL Total Protein (5.9-8.4) gm/dL Albumin (3.2-5.2) gm/dL Globulin (2.2-3.7) gm/dL Albumin/Globulin Ratio (1.0-2.3) TSH 0.71 (0.27-5.01) uIU/mL ED POC Tests ED POC Tests: TANO - SARS Antigen Negative Discharge Plan Patient/Caregiver Discharge Instructions Pt seen by WARE TESTER/PA only: No Clinical Impression: Hyponatremia, Hypokalemia Syncope Qualifiers: Syncope type: unspecified Qualified Code(s): R55 - Syncope and collapse CHF (congestive heart failure) Qualifiers: Heart failure type: unspecified Heart failure chronicity: unspecified Qualified Code(s): I50.9 - Heart failure, unspecified Hypotension Qualifiers: Hypotension type: unspecified hypotension type Qualified Code(s): I95.9 - Hypotension, unspecified Patient Disposition: Xfer As Inpt ([facility]) Condition: Serious Discharge Date/Time: 12/15/20 22:54
[2020-12-15 19:56] LABS: Basophils # (Auto) 0.01 K/mcL (0.00-0.30); Basophils % (Auto) 0.2 % (0.0-2.0); Eosinophils # (Auto) 0.06 K/mcL (0.00-0.70); Eosinophils % (Auto) 1.1 % (0.0-7.0); Hemoglobin 10.8 g/dL (11.2-15.7); Lymphocytes # (Auto) 0.67 K/mcL (1.50-4.80); Lymphocytes % (Auto) 12.3 % (15.5-49.0); Mean Corpuscular HGB Conc 31.8 g/dL (31.0-36.0); Mean Platelet Volume 10.6 fL (7.4-10.4); Monocytes % (Auto) 12.9 % (1.0-12.0); Neutrophils % (Auto) 73.5 % (38.0-78.0); Platelet Count 160 K/mcL (140-440); WBC 5.4 K/mcL (4.5-11.0)
[2020-12-15 20:55] LABS: Thyroid Stimulating Hormone 0.71 uIU/mL (0.27-5.01)
[2020-12-15] MEDS ORDERED: ONDANSETRON 4 MG/2 ML VIAL IV PRN ×3 (21:02→23:34)
[2020-12-15] MEDS ORDERED: 0.9 % SODIUM CHLORIDE 10 ML SYRINGE IV SCH (22:00)
[2020-12-15] MEDS ORDERED: DOFETILIDE 500 MCG PO SCH (22:00)
[2020-12-15] MEDS ORDERED: FLECAINIDE 100 MG TABLET PO SCH (22:00)
--- NOTE | 2020-12-15 22:12 | Internal Med History&Physical ---
HPI History of Present Illness Patient information: Note initiated : 12/15/20 at 10:09 pm Service Date, if different from initiated Date: [] Patient: Peg Kitchen a 55 y/o F admitted on for Synocpal. Chief Complaint: [syncope] History of present illness: Ms. Kitchen is a 55 year old F history of hypothyroidism, atrial fibrillation status post cardiac pacemaker placement, systolic congestive heart failure, congenital heart disease, scoliosis, presen ting with syncope. There is no prior similar episode. Earlier this evening at around 6 PM patient had 2 separate episodes of witnessed syncope episodes. Duration of each episode was unknown. It was being described as she staying in the area unresponsive to voice and with her eyes rolled back. There is no tonic-clonic activities seen. There was no tongue biting activities. There was no postictal confusions. There was no bowel or bladder incontinence's. Patient did not remember the episode. Patient is currently denies any confusions or headaches. Patient denies any chest pain palpitations or shortness of breath. Patient denies any muscle pain or aches or weaknesses. Patient however is complaining of decreased oral intake and diarrhea for the past week also. In addition, patient stated she had Entresto being added to her list of medications a few months ago with no other recent medication changes. She was sent by EMS to our ED for further evaluations. Vital signs significant for soft BP with systolic and diastolic in the 70s and 40s mmHg, respectively. Labs significant for hyponatremia and hypokalemia with serum sodium and potassium level 116 and 2.7, respectively. Serum creatinine level 2.2 with baseline 1.0. Serum BNP elevated to 1000. Constitutional Constitutional: Absent chills, excessive sweating, fatigue, fever(s) and weakness EENT Eyes: Absent blurry vision, change in vision, loss of vision and other visual disturbances Ears: Absent decreased hearing and tinnitus Nose, mouth and throat: Absent abnormal hearing, dry mouth, headache(s), nasal congestion and sore throat Cardiovascular Cardiovascular: Absent chest pain, chest pain at rest, edema, irregular heart rhythm and palpatations Respiratory Respiratory: Absent cough, dyspnea and wheezing Gastrointestinal Gastrointestinal: Absent abdominal pain, constipation, diarrhea, nausea and vomiting Musculoskeletal Musculoskeletal: Absent back pain, deformity, limited range of motion, muscle cramps, muscle weakness and numbness Integumentary Integumentary: Absent lesions, rash and wounds Neurological Neurological: Present syncope; Absent focal weakness, headache(s) and numbness Psychiatric Psychiatric: Absent anxiety, depression and hallucinations PFSH PFSH All Active Problems (Updated 12/15/20 @ 22:17 by Tang Blancas MD) Stage 2 acute kidney injury (Acute) Congenital heart defect (Chronic) CHF (congestive heart failure) (Chronic) Pacemaker (Chronic) History of heart surgery (Chronic ~1970) History of surgery (Chronic ~2017) Atrial fibrillation (Chronic) Acquired hypothyroidism (Chronic) Anemia (Acute) Hypotension (Chronic) Medicare annual wellness visit, subsequent (Acute) Iron overload (Acute) Syncope (Acute) Hyponatremia (Acute) Hypokalemia (Acute) Hypotension (Acute) Medical History Acquired hypothyroidism Anemia Atrial fibrillation CHF (congestive heart failure) Congenital heart defect Hyperglycemia Hypotension Iron overload Medicare annual wellness visit, subsequent Pacemaker Pain of left calf Partial small bowel obstruction Surgical History History of back surgery Isaacs Rods, Bone fusion History of cardiac radiofrequency ablation X2 History of heart surgery (~1970) Atrial septal defect History of open heart surgery (~1969) History of surgery (~2017) Pacemaker Insertion Family History Mother Cancer Hypertension Family/Other Cancer Aunt Sister Cancer Diabetes mellitus, type II Hypertension Grandmother Hypertension Maternal Social History marital status: single smoking status: Never smoker alcohol intake frequency: holiday/special occasion only substance use type: does not use MEDS/ALLERGIES Home Medications and Allergies Home Medications Medication Instructions Recorded Confirmed Type furosemide [Lasix] 40 mg PO DAILY 10/28/15 12/15/20 History apixaban 5 mg tablet 5 mg PO BID 05/23/20 12/15/20 History dofetilide 500 mcg capsule 500 mcg PO Q12H 05/23/20 12/15/20 History magnesium 400 mg PO QDAY 05/23/20 07/17/20 History spironolactone 25 mg tablet 25 mg PO DAILY tab 05/23/20 12/15/20 History carvedilol 12.5 mg tablet 12.5 mg PO BID 06/12/20 12/15/20 History sacubitril 97 mg-valsartan 103 mg 1 tab PO BID tab 07/17/20 12/15/20 History tablet levothyroxine 150 mcg tablet 150 mcg PO QDAY #30 tab 10/22/20 12/15/20 Rx flecainide 100 mg PO Q12H 12/15/20 12/15/20 History Allergies Allergy/AdvReac Type Severity Reaction Status Date / Time codeine Allergy Mild ITCHING Verified 12/15/20 17:34 iodine [IODINE] Allergy Unknown RASH Verified 12/15/20 17:34 EXAM Constitutional Vitals: Temp Pulse Resp BP Pulse Ox 36.2 C 70 17 72/48 97 12/15/20 17:30 12/15/20 21:37 12/15/20 21:37 12/15/20 21:31 12/15/20 21:37 General appearance: cooperative and no acute distress Head Head exam: Present atraumatic and normocephalic Eye Eye exam: Present EOMI and PERRL ENT ENT exam: Present mucous membranes moist, normal exam and normal external ear exam Neck Neck exam: Present normal inspection; Absent lymphadenopathy, tenderness and thyromegaly Respiratory Respiratory exam: Absent accessory muscle use, respiratory distress and wheezes Cardiovascular Cardiovascular exam: Present irregular rhythm; Absent JVD GI/Abdominal GI/Abdominal exam: Present normal bowel sounds and soft; Absent organomegaly and tenderness Extremities Exam Extremities exam: Present full ROM, normal capillary refill and normal inspection; Absent tenderness Neurological Exam Neurological exam: Present alert, CN II-XII intact and oriented X3; Absent motor sensory deficit Psychiatric Psychiatric exam: Present normal affect and normal mood; Absent anxious and depressed Skin Skin exam: Present dry and intact DATA Data Completed and Pending Labs: Labs from last 24 hours 12/15/20 12/15/20 12/15/20 17:54 17:53 17:53 WBC 5.4 RBC TNP Hgb 10.8 L Hct 34.0 L MCV TNP MCH TNP MCHC 31.8 RDW TNP Plt Count 160 MPV 10.6 H Neut % (Auto) 73.5 Lymph % (Auto) 12.3 L [place] % (Auto) 12.9 H Eos % (Auto) 1.1 Baso % (Auto) 0.2 Lymph # (Auto) 0.67 L [place] # (Auto) 0.70 Eos # (Auto) 0.06 Baso # (Auto) 0.01 Absolute Neutrophils 3.99 Sodium Potassium Chloride Carbon Dioxide Anion Gap BUN Creatinine GFR Calculation Glucose Calcium Magnesium 1.9 Total Bilirubin AST ALT Alkaline Phosphatase Troponin T NT-Pro-B Natriuret Pep 1009.0 H Total Protein Albumin Globulin Albumin/Globulin Ratio TSH 0.71 12/15/20 12/15/20 17:53 17:53 WBC RBC Hgb Hct MCV MCH MCHC RDW Plt Count MPV Neut % (Auto) Lymph % (Auto) [place] % (Auto) Eos % (Auto) Baso % (Auto) Lymph # (Auto) [place] # (Auto) Eos # (Auto) Baso # (Auto) Absolute Neutrophils Sodium 116 L* Potassium 2.7 L* Chloride 82 L Carbon Dioxide 14 L Anion Gap 20.0 H BUN 29 H Creatinine 2.2 H GFR Calculation 25 Glucose 146 H Calcium 8.6 Magnesium Total Bilirubin 1.0 AST 37 H ALT 54 H Alkaline Phosphatase 82 Troponin T < 0.01 NT-Pro-B Natriuret Pep Total Protein 6.8 Albumin 4.0 Globulin 2.8 Albumin/Globulin Ratio 1.4 TSH A/P Assessment and plan (1) Atrial fibrillation: Status: Chronic Qualifiers: Atrial fibrillation type: unspecified chronic Qualified Code(s): I48.20 - Chronic atrial fibrillation, unspecified (2) CHF (congestive heart failure): Status: Chronic Qualifiers: Heart failure type: unspecified Heart failure chronicity: unspecified Qualified Code(s): I50.9 - Heart failure, unspecified (3) Pacemaker: Status: Chronic (4) Anemia: Status: Acute Qualifiers: Anemia type: unspecified type Qualified Code(s): D64.9 - Anemia, unspecified (5) Hyponatremia: Status: Acute (6) Hypokalemia: Status: Acute (7) Syncope: Status: Acute Qualifiers: Syncope type: unspecified Qualified Code(s): R55 - Syncope and collapse (8) Congenital heart defect: Status: Chronic (9) Stage 2 acute kidney injury: Status: Acute Narrative A/P Narrative: Assessment and Plans: #1 syncope: Differential diagnosis: Absence seizures Admitted to inpatient ICU with cardiac monitoring CT head without contrast Carotid venous Doppler ultrasound bilaterally 2D echocardiogram Physical therapy and Occupational Therapy evaluate and treatment 2. History of systolic CHF: 2D echocardiogram Hold Coreg due to soft blood pressure currently Hold diuretics and Aldactone due to soft blood pressure and acute kidney injury and hyponatremia/hypokalemia Hold Entresto due to soft blood pressure and acute kidney injury Intake and output Daily weight 2 L/day fluid restriction #3 atrial fibrillation's: Cardiac pacemaker interrogated Continue Dofetilide Continue for tonight [id number] score of 2 Continue Eliquis as anticoagulation therapy 4. Hypothyroidism: Continue oral thyroid replacement therapy 5. Normocytic normochromic anemia: CBC with auto differential in the morning to trend H&H level and will transfuse PRBC if hemoglobin less than 7.0, active bleeding, or symptomatic 6. Hyponatremia and hypokalemia: Differential diagnosis: Medication effect such as from diuretics versus SIADH versus GI losses from reduced oral intake and diarrhea Serum osmolality, urine osmolality and sodium level in order to look for potential underlying causes of hyponatremia such as SIADH Hold diuretics, Entresto, and Aldactone for the time being Normal saline at 75 cc/h with BMP every 6 hours to trend serum sodium level with goal of correction 8-10 points in the first 24 hours to avoid neurological complications such as central pontine myelinolysis Potassium IV replacement protocol, with serial BMP to trend serum potassium level and repeat replacement as needed We will also check a serum magnesium level and will replace if needed Imodium as needed loose stool #7 stage II acute kidney injury: Avoid nephrotoxic agent holding Entresto and diuretics Normal saline 75 cc/h Serial BMP to trend kidney function GI prophylaxis: Not currently indicated DVT prophylaxis: Eliquis CODE STATUS: Full code Prognosis: Guarded Dispositions: Inpatient ICU Critical care time: 1 hour Time Spent With Patient Time: Total time spent is greater than 50% in coordination of care (as documente d) at patient's floor/unit and/or counseling patient: Total time spent with greater than 50% in coordination of care (as documented) at patient's floor/unit and/or counseling patient:: Greater than 35 minutes
[2020-12-15] MEDS ORDERED: SENNOSIDES 1 TABLET PO PRN (23:34)
[2020-12-15] MEDS ORDERED: LORazepam 2 MG/ML VIAL IV PRN (23:34)
[2020-12-15] MEDS ORDERED: ACETAMINOPHEN 325 MG TABLET PO PRN (23:34)
[2020-12-16] MEDS: 0.9 % SODIUM CHLORIDE 10 ML SYRINGE IV SCH ×4 (00:40→21:09)
[2020-12-16 01:01] LABS: Prolactin 38.4 ng/mL (4.8-23.3)
[2020-12-16 01:06] LABS: ALT/SGPT 49 U/L (<40); AST/SGOT 31 U/L (<32); Albumin 4.1 gm/dL (3.2-5.2); Albumin/Globulin Ratio 1.5 (1.0-2.3); Alkaline Phosphatase 85 U/L (39-117); Bilirubin,Total 0.8 mg/dL (0.1-1.0); Blood Urea Nitrogen 29 mg/dL (6-20); Calcium 8.8 mg/dL (8.6-10.4); Carbon Dioxide 18 mmol/L (22-30); Chloride 82 mmol/L (96-108); Globulin 2.7 gm/dL (2.2-3.7); Glomerular Filtration Rate 25; Glucose 125 mg/dL (70-105)
[2020-12-16] MEDS ORDERED: POTASSIUM CHLORIDE 20 MEQ/10 ML VIAL IV ONE (02:05)
[2020-12-16 03:44] LABS: Sodium, Urine Random 18 mmol/L
[2020-12-16 03:46] LABS: Osmolality,Urine 125 mOSM/kg (80-1000)
[2020-12-16] MEDS ORDERED: 0.9 % SODIUM CHLORIDE 10 ML SYRINGE IV SCH (06:00)
[2020-12-16 06:41] LABS: Phosphorous 2.8 mg/dL (2.5-4.5)
[2020-12-16 06:42] LABS: Basophils # (Auto) 0.01 K/mcL (0.00-0.30); Basophils % (Auto) 0.2 % (0.0-2.0); Eosinophils # (Auto) 0.05 K/mcL (0.00-0.70); Eosinophils % (Auto) 0.9 % (0.0-7.0); Hemoglobin 10.4 g/dL (11.2-15.7); Lymphocytes # (Auto) 0.72 K/mcL (1.50-4.80); Lymphocytes % (Auto) 13.3 % (15.5-49.0); Mean Cell Volume 97.2 fL (80.0-100.0); Mean Corpuscular HGB Conc 37.1 g/dL (31.0-36.0); Mean Platelet Volume 10.5 fL (7.4-10.4); Monocytes # (Auto) 0.98 K/mcL (0.10-0.90); Neutrophils % (Auto) 67.6 % (38.0-78.0); Platelet Count 153 K/mcL (140-440); RBC 2.88 M/mcL (3.59-5.38); Red Cell Distribution Width 11.1 % (11.5-14.5); WBC 5.4 K/mcL (4.5-11.0)
[2020-12-16 06:54] LABS: ALT/SGPT 47 U/L (<40); AST/SGOT 29 U/L (<32); Albumin/Globulin Ratio 1.5 (1.0-2.3); Alkaline Phosphatase 85 U/L (39-117); Bilirubin,Total 0.8 mg/dL (0.1-1.0); Blood Urea Nitrogen 28 mg/dL (6-20); Calcium 8.9 mg/dL (8.6-10.4); Carbon Dioxide 17 mmol/L (22-30); Chloride 85 mmol/L (96-108); Globulin 2.6 gm/dL (2.2-3.7); Glomerular Filtration Rate 28; Glucose 143 mg/dL (70-105)
[2020-12-16] MEDS ORDERED: POTASSIUM CHLORIDE 20 MEQ in DEXTROSE 5% IN WATER 250 ML IV ONE (06:58)
[2020-12-16] MEDS ORDERED: FLECAINIDE 50 MG TABLET PO SCH (07:00)
[2020-12-16] MEDS: LEVOTHYROXINE 150 MCG TABLET PO SCH (07:05)
[2020-12-16] MEDS: DOCUSATE SODIUM 100 MG CAPSULE PO SCH ×2 (08:18→21:08)
[2020-12-16] MEDS: MAGNESIUM OXIDE 400 MG TABLET PO SCH (08:18)
[2020-12-16] MEDS: APIXABAN 5 MG TABLET PO SCH ×2 (08:32→21:08)
[2020-12-16] MEDS ORDERED: MAGNESIUM 400 MG PO SCH (09:00)
[2020-12-16] MEDS ORDERED: Dofetilide 500 MCG PO SCH (09:00)
[2020-12-16] MEDS ORDERED: APIXABAN 5 MG TABLET PO SCH (09:00)
[2020-12-16] MEDS ORDERED: LEVOTHYROXINE 150 MCG TABLET PO SCH (09:00)
[2020-12-16] MEDS ORDERED: DOCUSATE SODIUM 100 MG CAPSULE PO SCH ×2 (09:00)
--- NOTE | 2020-12-16 09:05 | Ultrasound Report ---
INDICATION: syncope COMPARISON: None. TECHNIQUE: Carotid arteries were imaged in sagittal and transverse planes using 5 mHz linear probe: Doppler, color, and 2D. FINDINGS: Minimal atherosclerotic plaque in the distal right common carotid artery or proximal right internal carotid artery. No significant plaque in the distal left common carotid artery or proximal internal carotid artery. There is no ulceration. No flow disturbance. Maximum Systolic Flow Velocity: - Right common carotid artery: 80 cm/sec - Right internal carotid artery: 80 cm/sec - Left common carotid artery: 76 cm/sec - Left internal carotid artery: 83 cm/sec Vertebral arteries are antegrade patent bilaterally. IMPRESSION: 1. Minimal atherosclerotic plaque in the distal right common carotid artery and proximal right internal carotid artery. 2. No hemodynamically significant stenosis. 3. No ulcerated atherosclerotic plaque Interpreted and Authenticated by: Branden Hester 12/16/20
--- NOTE | 2020-12-16 09:20 | Internal Med Progress Note ---
SUBJECTIVE Subjective Patient information: Note initiated : 12/16/20 at 9:18 am Service Date, if different from initiated Date: [] Patient: Peg Kitchen a 55 y/o F admitted on 12/15/20 for Synocpal. Chief Complaint: [Syncope] Interval history: History of present illness: Ms. Kitchen is a 55 year old F history of hypothyroidism, atrial fibrillation status post cardiac pacemaker placement, systolic congestive heart failure, congenital heart disease, s coliosis, presenting with syncope. There is no prior similar episode. Earlier this evening at around 6 PM patient had 2 separate episodes of witnessed syncope episodes. Duration of each episode was unknown. It was being described as she staying in the area unresponsive to voice and with her eyes rolled back. There is no tonic-clonic activities seen. There was no tongue biting activities. Th ere was no postictal confusions. There was no bowel or bladder incontinence's. Patient did not remember the episode. Patient is currently denies any confusions or headaches. Patient denies any chest pain palpitations or shortness of breath. Patient denies any muscle pain or aches or weaknesses. Patient however is complaining of decreased oral intake and diarrhea for the past week also. In addition, patient stated she had Entresto being added to her list of medications a few months ago with no other recent medication changes. She was sent by EMS to our ED for further evaluations. Vital signs significant for soft BP with systolic and diastolic in the 70s and 40s mmHg, respectively. Labs significant for hyponatremia and hypokalemia with serum sodium and potassium level 116 and 2.7, respectively. Serum creatinine level 2.2 with baseline 1.0. Serum BNP elevated to 1000. 12/16: No more syncope episode. No seizure activities. One bowel movement overnight. Sodium 118, potassium 2.9. Denies chest pain or palpitation. Denies headache. Denies nausea or vomiting. Denies confusion. Constitutional Vitals: Vital Signs Temp Pulse Resp BP Pulse Ox 36.7 C 70 14 87/52 99 12/16/20 09:00 12/16/20 08:01 12/16/20 09:00 12/16/20 09:00 12/16/20 09:00 Period Temp Pulse Resp BP Sys/Michel Pulse Ox Last 24 Hr 36.2 C-36.8 C 68-75 12-30 62-87/36-53 93-100 Intake and Output 12/15/20 12/16/20 12/16/20 21:59 05:59 13:59 Intake Total 1000 260 260 Output Total 1200 700 Balance 1000 -940 -440 Weight 76.657 kg 77.156 kg Intake & Output: Intake & Output 12/15/20 12/16/20 12/16/20 21:59 05:59 13:59 Intake Total 1000 260 260 Output Total 1200 700 Balance 1000 -940 -440 Weight 76.657 kg 77.156 kg Intake: IV 1000 260 260 Sodium Chloride 0.9% 1,000 ml @ 1000 Wide Open IV BOLUS ONE Rx#: [id number] Potassium Chloride 20 Meq In 260 260 Dextrose 5% in Water 250 ml @ 130 mls/hr IV ONCE ONE Rx#: [id number] Output: Void Amount 1200 Urine/Stool Mix 700 Other: Urine Appearance Clear Urine Color Straw General appearance: cooperative and no acute distress Head Head exam: Present atraumatic and normocephalic Eye Eye exam: Present EOMI and PERRL ENT ENT exam: Present mucous membranes moist, normal exam and normal external ear exam Neck Neck exam: Present normal inspection; Absent lymphadenopathy, tenderness and thyromegaly Respiratory Respiratory exam: Absent accessory muscle use, respiratory distress and wheezes Cardiovascular Cardiovascular exam: Present irregular rhythm; Absent JVD GI/Abdominal GI/Abdominal exam: Present normal bowel sounds and soft; Absent organomegaly and tenderness Extremities Exam Extremities exam: Present full ROM, normal capillary refill and normal inspection; Absent tenderness Neurological Exam Neurological exam: Present alert, CN II-XII intact and oriented X3; Absent motor sensory deficit Psychiatric Psychiatric exam: Present normal affect and normal mood; Absent anxious and depressed Skin Skin exam: Present dry and intact OBJ DATA Labs CBC & Chem 7: 12/16/20 05:14 12/16/20 05:14 Labs: Abnormal Lab Results 12/16/20 12/16/20 12/15/20 05:14 05:14 23:52 RBC 2.88 L Hgb 10.4 L Hct 28.0 L MCH 36.1 H MCHC 37.1 H RDW 11.1 L MPV 10.5 H Lymph % (Auto) 13.3 L [place] % (Auto) 18.0 H Lymph # (Auto) 0.72 L [place] # (Auto) 0.98 H Sodium 118 L* 115 L* Potassium 2.9 L* 2.7 L* Chloride 85 L 82 L Carbon Dioxide 17 L 18 L Anion Gap BUN 28 H 29 H Creatinine 2.0 H 2.2 H Glucose 143 H 125 H Osmolality 259 L AST ALT 47 H 49 H NT-Pro-B Natriuret Pep Prolactin 38.4 H 12/15/20 12/15/20 12/15/20 17:54 17:53 17:53 RBC Hgb 10.8 L Hct 34.0 L MCH MCHC RDW MPV 10.6 H Lymph % (Auto) 12.3 L [place] % (Auto) 12.9 H Lymph # (Auto) 0.67 L [place] # (Auto) Sodium 116 L* Potassium 2.7 L* Chloride 82 L Carbon Dioxide 14 L Anion Gap 20.0 H BUN 29 H Creatinine 2.2 H Glucose 146 H Osmolality AST 37 H ALT 54 H NT-Pro-B Natriuret Pep 1009.0 H Prolactin Meds: Medications Acetaminophen (Acetaminophen 325 Mg Tablet) 650 mg PO Q4-6HP PRN; Protocol PRN Reason: Per Pain Protocol/Fever > 101 Apixaban (Apixaban 5 Mg Tablet) 5 mg PO BID [facility] Last Admin: 12/16/20 08:32 Dose: 5 mg Documented by: Docusate Sodium (Docusate Sodium 100 Mg Capsule) 100 mg PO BID [facility] Last Admin: 12/16/20 08:18 Dose: 100 mg Documented by: Flecainide Acetate (Flecainide 50 Mg Tablet) 100 mg PO Q12H [facility] Last Admin: 12/16/20 07:11 Dose: Not Given Documented by: Sodium Chloride (Sodium Chloride 0.9%) 1,000 mls @ 75 mls/hr IV .[id number] [facility] Last Admin: 12/16/20 00:00 Dose: 75 mls/hr Documented by: Levothyroxine Sodium (Levothyroxine 150 Mcg Tablet) 150 mcg PO QAMAC [facility] Last Admin: 12/16/20 07:05 Dose: 150 mcg Documented by: Loperamide HCl (Loperamide 2 Mg Capsule) 2 mg PO PRN PRN PRN Reason: Diarrhea Lorazepam (Lorazepam 2 Mg/Ml Vial) 1 mg IV Q1HP PRN PRN Reason: Seizure Activity Magnesium Oxide (Magnesium Oxide 400 Mg Tablet) 400 mg PO QDAY [facility] Last Admin: 12/16/20 08:18 Dose: 400 mg Documented by: Ondansetron HCl (Ondansetron 4 Mg/2 Ml Vial) 4 mg IV Q6HP PRN PRN Reason: Nausea And Vomiting Senna (Sennosides 1 Tablet) 1 tab PO HSP PRN PRN Reason: Constipation Sodium Chloride (0.9 % Sodium Chloride 10 Ml Syringe) 10 ml IV Q8 [facility] Last Admin: 12/16/20 06:09 Dose: 10 ml Documented by: A/P Assessment and plan (1) Atrial fibrillation: Status: Chronic Qualifiers: Atrial fibrillation type: unspecified chronic Qualified Code(s): I48.20 - Chronic atrial fibrillation, unspecified (2) CHF (congestive heart failure): Status: Chronic Qualifiers: Heart failure type: unspecified Heart failure chronicity: unspecified Qualified Code(s): I50.9 - Heart failure, unspecified (3) Pacemaker: Status: Chronic (4) Anemia: Status: Acute Qualifiers: Anemia type: unspecified type Qualified Code(s): D64.9 - Anemia, unspecified (5) Hyponatremia: Status: Acute (6) Hypokalemia: Status: Acute (7) Syncope: Status: Acute Qualifiers: Syncope type: unspecified Qualified Code(s): R55 - Syncope and collapse (8) Congenital heart defect: Status: Chronic (9) Stage 2 acute kidney injury: Status: Acute Narrative A/P Narrative: Assessment and Plans: #1 syncope: Differential diagnosis: Absence seizures Stays in inpatient ICU with cardiac monitoring CT head without contrast Carotid venous Doppler ultrasound bilaterally-->no hemodynamically significant stenosis or plagues 2D echocardiogram Physical therapy and Occupational Therapy evaluate and treatment 2. History of systolic CHF: 2D echocardiogram Hold Coreg due to soft blood pressure currently Hold diuretics and Aldactone due to soft blood pressure and acute kidney injury and hyponatremia/hypokalemia Hold Entresto due to soft blood pressure and acute kidney injury Intake and output Daily weight 2 L/day fluid restriction #3 atrial fibrillation's: Cardiac pacemaker interrogated Continue Flecainide [id number] score of 2 Continue Eliquis as anticoagulation therapy 4. Hypothyroidism: Continue oral thyroid replacement therapy 5. Normocytic normochromic anemia: CBC with auto differential in the morning to trend H&H level and will transfuse PRBC if hemoglobin less than 7.0, active bleeding, or symptomatic 6. Hyponatremia and hypokalemia: Differential diagnosis: Medication effect such as from diuretics versus SIADH versus GI losses from reduced oral intake and diarrhea Serum osmolality, urine osmolality and sodium level in order to look for potential underlying causes of hyponatremia such as SIADH-->suggestive of hypovolemia but not SIADH Hold diuretics, Entresto, and Aldactone for the time being Normal saline at 75 cc/h with BMP every 6 hours to trend serum sodium level with goal of correction 8-10 points in the first 24 hours to avoid neurological complications such as central pontine myelinolysis Potassium IV replacement protocol, with serial BMP to trend serum potassium level and repeat replacement as needed We will also check a serum magnesium level and will replace if needed Imodium as needed loose stool #7 stage II acute kidney injury: Avoid nephrotoxic agent holding Entresto and diuretics Normal saline 75 cc/h Serial BMP to trend kidney function GI prophylaxis: Not currently indicated DVT prophylaxis: Eliquis CODE STATUS: Full code Prognosis: Guarded Dispositions: Inpatient ICU Critical care time: 1 hour Time Spent With Patient Time: Total time spent is greater than 50% in coordination of care (as documented) at patient's floor/unit and/or counseling patient:
[2020-12-16] MEDS: LOPERAMIDE 2 MG CAPSULE PO PRN ×5 (10:17→22:51)
--- NOTE | 2020-12-16 11:04 | Cat Scan Report ---
INDICATION: syncope COMPARISON: None. TECHNIQUE: Axial noncontrast-enhanced images through the brain. Sagittally and coronally reformatted images. FINDINGS: Cerebral hemispheres: 5 mm lacunar infarction in the head of the right caudate nucleus. This is nonacute. Cerebral hemispheres are otherwise negative. No acute intra-axial abnormality. No intra-axial hematoma. No localized mass effect. Brain volume is within normal limits. No hydrocephalus Brainstem and cerebellum:No intra-axial abnormality Extra-axial:No acute hemorrhage. No subdural or epidural hematoma. No subarachnoid hemorrhage. Basilar cisterns are normal Calvarial:No calvarial fracture. No lytic lesion Temporal bones are negative. No destructive lesions Soft tissue, orbits, sinuses:Orbits and visualized facial soft tissues and paranasal sinuses are negative IMPRESSION: 1. Chronic 5 mm lacunar infarction in the head of the right caudate nucleus 2. Otherwise negative noncontrast enhanced brain CT scan The exam was performed using radiation dose optimization techniques including, but not limited to, automated exposure control, adjustment of the mA and/or kV according to patient size and use of iterative reconstruction technique. Interpreted and Authenticated by: Branden Hester 12/16/20
[2020-12-16] MEDS ORDERED: SIMETHICONE 80 MG TAB.CHEW CHEWED PRN (11:27)
[2020-12-16 14:26] LABS: Blood Urea Nitrogen 27 mg/dL (6-20); Carbon Dioxide 19 mmol/L (22-30); Chloride 87 mmol/L (96-108); Glomerular Filtration Rate 36; Glucose 120 mg/dL (70-105)
[2020-12-16] MEDS ORDERED: POTASSIUM CHLORIDE 40 MEQ in DEXTROSE 5% IN WATER 500 ML IV ONE (16:00)
[2020-12-16] MEDS: 0.9 % SODIUM CHLORIDE 1,000 ML IV SCH ×3 (16:09→21:27)
[2020-12-16] MEDS ORDERED: ZOLPIDEM 5 MG TABLET PO PRN (19:09)
[2020-12-16] MEDS ORDERED: SENNOSIDES 1 TABLET PO SCH ×2 (21:00)
[2020-12-16] MEDS: DOFETILIDE 500 MCG CAPSULE PO SCH (21:09)
[2020-12-17] MEDS: 0.9 % SODIUM CHLORIDE 1,000 ML IV SCH (04:18)
[2020-12-17] MEDS: 0.9 % SODIUM CHLORIDE 10 ML SYRINGE IV SCH (06:11)
[2020-12-17] MEDS: LEVOTHYROXINE 150 MCG TABLET PO SCH (06:47)
[2020-12-17] MEDS: DOCUSATE SODIUM 100 MG CAPSULE PO SCH (08:31)
[2020-12-17 08:34] LABS: Phosphorous 2.5 mg/dL (2.5-4.5)
[2020-12-17] MEDS: APIXABAN 5 MG TABLET PO SCH (08:38)
[2020-12-17] MEDS: MAGNESIUM OXIDE 400 MG TABLET PO SCH (08:38)
[2020-12-17] MEDS: DOFETILIDE 500 MCG CAPSULE PO SCH (08:39)
[2020-12-17 08:45] LABS: ALT/SGPT 39 U/L (<40); AST/SGOT 21 U/L (<32); Albumin 3.9 gm/dL (3.2-5.2); Albumin/Globulin Ratio 1.5 (1.0-2.3); Alkaline Phosphatase 80 U/L (39-117); Bilirubin,Total 0.7 mg/dL (0.1-1.0); Blood Urea Nitrogen 22 mg/dL (6-20); Calcium 8.9 mg/dL (8.6-10.4); Carbon Dioxide 17 mmol/L (22-30); Chloride 95 mmol/L (96-108); Globulin 2.6 gm/dL (2.2-3.7); Glomerular Filtration Rate 34; Glucose 92 mg/dL (70-105)
[2020-12-17 10:16] LABS: Basophils # (Auto) 0.04 K/mcL (0.00-0.30); Basophils % (Auto) 0.6 % (0.0-2.0); Eosinophils # (Auto) 0.09 K/mcL (0.00-0.70); Eosinophils % (Auto) 1.3 % (0.0-7.0); Hematocrit 31.5 % (34.1-44.9); Hemoglobin 10.2 g/dL (11.2-15.7); Lymphocytes # (Auto) 1.11 K/mcL (1.50-4.80); Lymphocytes % (Auto) 16.4 % (15.5-49.0); Mean Corpuscular HGB Conc 32.4 g/dL (31.0-36.0); Mean Platelet Volume 10.3 fL (7.4-10.4); Monocytes # (Auto) 1.11 K/mcL (0.10-0.90); Monocytes % (Auto) 16.4 % (1.0-12.0); Neutrophils % (Auto) 65.3 % (38.0-78.0); Platelet Count 154 K/mcL (140-440); RBC 2.69 M/mcL (3.59-5.38); Red Cell Distribution Width 11.5 % (11.5-14.5); WBC 6.8 K/mcL (4.5-11.0)
--- NOTE | 2020-12-17 10:28 | Discharge Summary ---
Discharge Provider Provider Patient information: Note initiated : 12/17/20 at 10:24 am Service Date, if different from initiated Date: [] Patient: Peg Kitchen a 55 y/o F admitted on 12/15/20 for Synocpal. Chief Complaint: [syncope] History of present illness: Ms. Kitchen is a 55 year old F history of hypothyroidism, atrial fibrillation status post cardiac pacemaker placement, systolic congestive heart failure, congenital heart disease, scoliosis, presenting with syncope. There is no prior similar episode. Earlier this evening at around 6 PM patient had 2 separate episodes of witnessed syncope episodes. Duration of each episode was unknown. It was being described as she staying in the area unresponsive to voice and with her eyes rolled back. There is no tonic-clonic activities seen. There was no tongue biting activities. There was no postictal confusions. There was no bowel or bladder incontinence's. Patient did not remember the episode. Patient is currently denies any confusions or headaches. Patient denies any chest pain palpitations or shortness of breath. Patient denies any muscle pain or aches or weaknesses. Patient however is complaining of decreased oral intake and diarrhea for the past week also. In addition, patient stated she had Entresto being added to her list of medications a few months ago with no other recent medication changes. She was sent by EMS to our ED for further evaluations. Vital signs significant for soft BP with systolic and diastolic in the 70s and 40s mmHg, respectively. Labs significant for hyponatremia and hypokalemia with serum sodium and potassium level 116 and 2.7, respectively. Serum creatinine level 2.2 with baseline 1.0. Serum BNP elevated to 1000. Date of admission: 12/15/20 22:48 Discharge date: 12/17/20 Primary care physician: Tremayne Narvaez MD Consults: 12/16/20 07:02 Consult to Physician [CONS] Routine Comment: Consulting Provider: Tang Blancas Reason For Exam: Physician to Consult Discharge Meds Discharge Medications Home Medications apixaban 5 mg tablet 5 mg PO BID 05/23/20 [History Confirmed 12/15/20 Last Taken 12/15/20 08:00] dofetilide 500 mcg capsule 500 mcg PO Q12H 05/23/20 [History Confirmed 12/15/20 Last Taken 12/15/20 08:00] levothyroxine 150 mcg tablet 150 mcg PO QDAY #30 tab 10/22/20 [Rx Confirmed 12/15/20 Last Taken Unknown] simethicone [Mi-Acid Gas Relief(simethicon)] 80 mg PO QIDP PRN #20 tab 12/17/20 [Rx Last Taken Unknown] zolpidem 5 mg PO HSP PRN #10 tab 12/17/20 [Rx Last Taken Unknown] COURSE Hospital Course Hospital course: Patient was admitted on December 15, 2020 for syncope. Inclusive work-up including CT of the head without contrast, EKG, echocardiogram, carotid venous Doppler ultrasound were all performed. CT of the head showed no acute intracranial pathologies. EKG showing paced rhythm no sign of acute ischemia. Carotid venous Doppler ultrasound did not show any hemodynamically significant plaques or stenosis. Echocardiogram result pending. No additional episode of syncope during her hospitalizations. She was also found to have hyponatremia hypokalemia and acute kidney injury. IV normal saline and potassium IV replacement were provided and both hyponatremia hyperkalemia and acute kidney injury improved during her course of hospitalizations. She reached clinical stability on day 3 hospitalizations and the decision was thus made to discharge patient home with her list of medications modified, 1 week PCP and band bias machine operator follow-up appointment made for her, and all questions answered prior to patient being physically discharged. Discharge diagnosis: syncope Time Spent with Patient Time attestation: Total time spent providing and/or coordinating discharge services: Patient was admitted on December 15, 2020 for syncope. Inclusive work-up including CT of the head without contrast, EKG, echocardiogram, carotid venous Doppler ultrasound were all performed. CT of the head showed no acute intracranial pathologies. EKG showing paced rhythm no sign of acute ischemia. Carotid venous Doppler ultrasound did not show any hemodynamically significant plaques or stenosis. Echocardiogram result pending. No additional episode of syncope during her hospitalizations. She was also found to have hyponatremia hypokalemia and acute kidney injury. IV normal saline and potassium IV replacement were provided and both hyponatremia hyperkalemia and acute kidney injury improved during her course of hospitalizations. She reached clinical stability on day 3 hospitalizations and the decision was thus made to discharge patient home with her list of medications modified, 1 week PCP and band bias machine operator follow-up appointment made for her, and all questions answered prior to patient being physically discharged. EXAM Constitutional Vitals: Temp Pulse Resp BP Pulse Ox 36.7 C 72 16 70/44 100 09/28/21 08:01 12/17/20 09:09 12/17/20 04:01 12/17/20 09:09 12/17/20 09:09 General appearance: cooperative and no acute distress Head Head exam: Present atraumatic and normocephalic Eye Eye exam: Present EOMI and PERRL ENT ENT exam: Present mucous membranes moist, normal exam and normal external ear exam Neck Neck exam: Present normal inspection; Absent lymphadenopathy, tenderness and thyromegaly Respiratory Respiratory exam: Absent accessory muscle use, respiratory distress and wheezes Cardiovascular Cardiovascular exam: Present irregular rhythm; Absent JVD Additional comments: cardiac pacemaker in place GI/Abdominal GI/Abdominal exam: Present normal bowel sounds and soft; Absent organomegaly and tenderness Extremities Exam Extremities exam: Present full ROM, normal capillary refill and normal inspection; Absent tenderness Neurological Exam Neurological exam: Present alert, CN II-XII intact and oriented X3; Absent motor sensory deficit Psychiatric Psychiatric exam: Present normal affect and normal mood; Absent anxious and depressed Skin Skin exam: Present dry and intact Discharge Data Data Completed and Pending Labs on day of discharge: Labs from last 24 hours 12/17/20 12/17/20 12/17/20 05:09 05:08 05:08 WBC 6.8 RBC 2.69 L Hgb 10.2 L Hct 31.5 L MCV TNP MCH 37.9 H MCHC 32.4 RDW 11.5 Plt Count 154 MPV 10.3 Neut % (Auto) 65.3 Lymph % (Auto) 16.4 [place] % (Auto) 16.4 H Eos % (Auto) 1.3 Baso % (Auto) 0.6 Lymph # (Auto) 1.11 L [place] # (Auto) 1.11 H Eos # (Auto) 0.09 Baso # (Auto) 0.04 Absolute Neutrophils 4.40 Sodium 125 L Potassium 3.5 Chloride 95 L Carbon Dioxide 17 L Anion Gap 13.0 BUN 22 H Creatinine 1.7 H GFR Calculation 34 Glucose 92 Calcium 8.9 Phosphorus 2.5 Magnesium 2.1 Total Bilirubin 0.7 AST 21 ALT 39 Alkaline Phosphatase 80 Total Protein 6.5 Albumin 3.9 Globulin 2.6 Albumin/Globulin Ratio 1.5 12/16/20 13:08 WBC RBC Hgb Hct MCV MCH MCHC RDW Plt Count MPV Neut % (Auto) Lymph % (Auto) [place] % (Auto) Eos % (Auto) Baso % (Auto) Lymph # (Auto) [place] # (Auto) Eos # (Auto) Baso # (Auto) Absolute Neutrophils Sodium 120 L Potassium 2.9 L* Chloride 87 L Carbon Dioxide 19 L Anion Gap 14.0 BUN 27 H Creatinine 1.6 H GFR Calculation 36 Glucose 120 H Calcium 9.0 Phosphorus Magnesium Total Bilirubin AST ALT Alkaline Phosphatase Total Protein Albumin Globulin Albumin/Globulin Ratio Discharge Plan Patient/Caregiver Discharge Instructions Activity: increase activity as tolerated Diet: Regular Diet Prescriptions: New simethicone [Mi-Acid Gas Relief(simethicon)] 80 mg Tablet,Chewable 80 mg PO QIDP PRN (Reason: Dyspepsia) Qty: 20 RF: 0 zolpidem 5 mg Tablet 5 mg PO HSP PRN (Reason: Insomnia) Qty: 10 RF: 0 Continued levothyroxine 150 mcg tablet 150 mcg PO QDAY Qty: 30 RF: 2 Eliquis 5 mg tablet 5 mg PO BID RF: 0 dofetilide 500 mcg capsule 500 mcg PO Q12H RF: 0 Discontinued carvedilol [Coreg] 12.5 mg tablet 12.5 mg PO BID RF: 0 Entresto 97-103 mg tablet 1 tab PO BID RF: 0 furosemide [Lasix] 20 MG tablet 40 mg PO DAILY RF: 0 spironolactone 25 mg tablet 25 mg PO DAILY RF: 0 Follow Up Plan Follow up with: Alejandro Madera MD [Referring] - (Dr. Madera's office will contact you to schedule an appointment after reviewing your hospital visit.) Branden Luong DO [Physician] - 12/25/20 9:45 am (This is your post hospital follow up appointment; Dr. Narvaez was not available.) Tremayne Narvaez MD [Primary Care Provider] - 01/01/21 2:00 pm (Continue with your previous appointment) Patient Disposition: Home, Self-Care Prognosis: Serious Rehab Potential: Good I certify that the patient requires SNF services: No Overall status at discharge: patient is back to baseline Discharge Orders: Discharge Order (Routine); Ordered 12/17/20 Ordered By: Tang Blancas
[2020-12-17] MEDS: LOPERAMIDE 2 MG CAPSULE PO PRN (10:42)
== END 2020-12-17 12:33 | disposition home or self-care (01) | DRG 312 ==
LOC: ED 17:26 → ICU 22:48
PROVIDERS: ADMIT Internal Medicine; ATTEND Internal Medicine

== ENCOUNTER 2021-06-04 03:55 | Inpatient (IN) ==
[2021-06-04] MEDS ORDERED: IOPAMIDOL 100 ML BOTTLE IV ONE (03:56)
[2021-06-04] MEDS ORDERED: 0.9 % SODIUM CHLORIDE 1,000 ML IV SCH ×2 (04:00→04:15)
[2021-06-04] MEDS ORDERED: ROCURONIUM 10 MG/ML ML IV ONE (04:12)
[2021-06-04] MEDS ORDERED: ETOMIDATE 20 MG/10 ML VIAL IV ONE (04:12)
--- NOTE | 2021-06-04 04:32 | Emergency Department Note ---
Altered Mental Status HPI General Chief Complaint: Altered Mental Status Stated Complaint: unresponsive Time Seen by Provider: 06/04/21 03:56 Source: family (Sister and mother. Later the boyfriend of 30 years.) and EMS Mode of arrival: EMS Limitations: altered mental status History of Present Illness HPI Narrative: Narrative: Patient is nonverbal. Unable to provide any history. Paramedics report that they were called to the house because of the patient who is unresponsive. They noted the patient to have decorticate posturing of the upper extremities and transported her to our facility for further evaluation. Patient was incontinent of both bowel and bladder at home prior to transfer. The sister and mother report that the patient went to bed last night sometime around 10 PM. That was the last time that they saw her normal. She was asleep in bed with her boyfriend. He found her in the middle the night to be incontinent and unresponsive at around 3:30 AM. He called 911 who arrived and transported to our facility. Prior to going to bed the patient was in her normal self; ambulatory awake alert communicative. Patient has significant history of hypothyroidism, thyroid disease, thyroidectomy, open heart surgery with congenital heart disease. She required a pacemaker at age 13 and is "pacemaker dependent". She has had cardiac ablation surgery. She had a patent ductus arteriosus. She had an hepatitis that was in remission. It sounds as though hepatitis C. She may have had 1 similar episode to what she is having tonight and she was brought to our facility for that per sister, but boyfriend does not recall that Family states that at the time they diagnosed for a low potassium but I do not know if that was the cause of her symptoms. Related Data Home Medications Medication Instructions Recorded Confirmed apixaban 5 mg tablet (Eliquis) 5 mg PO BID 05/23/20 02/12/21 dofetilide 500 mcg capsule 500 mcg PO Q12H 05/23/20 02/12/21 Previous Rx's Medication Instructions Recorded zolpidem 5 mg tablet 5 mg PO HSP PRN #10 tab 12/17/20 furosemide 20 mg tablet (Lasix) 20 mg PO DAILY #30 tab 01/01/21 potassium chloride 10 mEq 10 meq PO QDAY #30 tab 01/01/21 tablet,extended release (Klor-Con) ondansetron 4 mg disintegrating 4 mg PO Q8H PRN #10 tab 03/21/21 tablet levothyroxine 150 mcg tablet 150 mcg PO QDAY #90 tab 04/22/21 folic acid 1 mg tablet 1 mg PO QDAY #90 tab 05/06/21 Allergies Allergy/AdvReac Type Severity Reaction Status Date / Time iodine [IODINE] Allergy Mild RASH Verified 02/12/21 13:13 codeine AdvReac Mild ITCHING Verified 02/12/21 13:13 Review of Systems ROS ROS Narrative: Narrative: Limitations: ROS unobtainable due to patients medical condition (Patient unconscious.) PFSH Narrative Patient History Narrative: Narrative: Medical/Surgical/Family History All Active Problems Viral illness (Acute) Viral syndrome (Acute) Congenital heart defect (Chronic) CHF (congestive heart failure) (Chronic) Pacemaker (Chronic) History of heart surgery (Chronic ~1970) History of surgery (Chronic ~2017) Atrial fibrillation (Chronic) Acquired hypothyroidism (Chronic) Anemia (Acute) Medicare annual wellness visit, subsequent (Acute) Iron overload (Acute) Syncope (Acute) Hypotension (Acute) Folic acid deficiency (non anemic) (Acute) Macrocytosis (Acute) Medical History Acquired hypothyroidism Anemia Atrial fibrillation CHF (congestive heart failure) Congenital heart defect Folic acid deficiency (non anemic) Hyperglycemia Hypotension Iron overload Macrocytosis Medicare annual wellness visit, subsequent Pacemaker Pain of left calf Partial small bowel obstruction Viral syndrome Surgical History History of back surgery Isaacs Rods, Bone fusion History of cardiac radiofrequency ablation X2 History of heart surgery (~1970) Atrial septal defect History of open heart surgery (~1969) History of surgery (~2017) Pacemaker Insertion Family History Mother Cancer Hypertension Family/Other Cancer Aunt Sister Cancer Diabetes mellitus, type II Hypertension Grandmother Hypertension Maternal Social History Smoking Status: Never smoker Alcohol Intake Frequency: holiday/special occasion only Substance Use: does not use Exam Narrative Narrative: Narrative: Unresponsive patient with decorticate movement upper extremities and incontinence of both bowel and bladder. General Limitations: altered mental status General appearance: Present obtunded Head Head: Present atraumatic and normocephalic Eye Eye: Present miosis (constriction) and other (When eyelids were pulled back the eyes were seen to be looking superiorly.) ENT ENT: Present mucous membranes dry and other (No bite castellon noted) Neck Neck: Present normal inspection, full ROM and trachea midline Chest Chest: Present symmetric chest wall rise and other (Prior open heart scars) Respiratory Respiratory: Present normal lung sounds bilaterally; Absent respiratory distress Cardiovascular Cardiovascular: Present regular rate and normal rhythm Adbominal Abdominal: Present soft and other (Prior scars. Obese.) Extremities Extremities: Present normal inspection and other (In decorticate position bilaterally.) Neurological Neurological: Present other (Obtunded) Psychiatric Psychiatric: Present other (Unable to assess because patient is obtunded) Skin Skin: Present warm (WNL) and dry Course Consultations Consultation #1: Dr. Bender , tele stroke says out of TPA window. He will look at the head and neck angio and call me back. He suggested that postictal stage of a seizure could explain this. At this time I reviewed the ABG which showed pH of 7.4H, mildly elevated normal PCO2 of 38 and a PO2 mildly low at 65. I will increase CO2 from 40% to 50% and adjust the rate from 14-16. Patient remains unresponsive 1 hour after receiving etomidate and rocuronium. Patient is 1-1/2 hours post discovery and remains unresponsive. Time: 05:00 Vital Signs Vital signs: Vital Signs Pulse Rate 96 H 06/04/21 03:56 Respiratory Rate 22 06/04/21 03:56 Blood Pressure 115/91 06/04/21 03:56 Pulse Oximetry (%) 93 06/04/21 03:56 Pulse Rate 76 06/04/21 04:18 Respiratory Rate 21 06/04/21 04:18 Blood Pressure 115/91 06/04/21 04:07 Pulse Oximetry (%) 100 06/04/21 04:18 Procedures Intubation Time out performed: No sedative: Etomidate Mg Given: 20 paralytic: Rocuronium Mg Given: 100 Laryngoscope: fiber optic video scope ET Tube Size: 7.5 ET Tube Uncuffed: No Tube Secured Depth (cm): 22 Tube Secured Location: teeth Tube Placement Confirmation: visualized tube passing through cords, equal breath sounds bilaterally and confirmation by capnometry (Paper change color) Patient Tolerated Procedure: other (Obtunded.) Intubation Complications: none Additional Comments: Intubated on first pass. Visualized going through the cords on screen. No vomitus in the posterior pharynx. Pulse ox 100% post intubation. MDM MDM Narrative Medical decision making narrative: Narrative: Middle-age female brought to [facility] by EMS because boyfriend found her gasping or fighting to breathe and unresponsive at 3:30 AM after having been normal when she went to bed at 10 PM. Differential diagnosis includes acute stroke, intracranial bleed, encephalopathy of other etiology, other. On arrival the patient was unresponsive to verbal stimuli. Arms were in a decorticate position. Patient was breathing spontaneously. Eyes were closed but when opened they did not have a lock on gaze. They drifted side to side and rolled up cephalad. Decision was made intubate patient to protect her airway. After setting up the equipment patient was given 20 mg of etomidate followed by 100 mg of rocuronium. When the patient facial facial muscles had stopped moving I then proceeded to intubate her using the video laryngoscope. Vocal cords were visualized and I inserted a 7.5 mm endotracheal tube through the cords with the tube being at the 22 mm juany at the teeth. Capnometer was applied and there was good color change of the paper. Patient was [id number] ventilated and the pulse ox was 100%. Breath sounds were heard over both sides of the chest and none over the stomach. Condensation was noted in the tube. Tube was secured to the patient's face. Patient was sent to the CT scanner for CT the head as well CT head and neck angiogram. Chest x-ray was ordered after the intubation. Other blood work was ordered as well. Chest x-ray interpretation; IMPRESSION: Severe congestive heart failure. Moderate airspace disease predominantly in the central and lower lungs is likely edema. Superimposed aspiration or infection not excluded. Based on CHF diagnosis above I ordered 40 mg of Lasix IV for the patient patient has a Yeager catheter presently. Laboratory results revealed white count of 11.1 with a hemoglobin of 11.2. Ammonia level was mildly elevated at 59. Troponin was less than 0.01. INR was 1.2. No alcohol was detected. Thyroid was normal at 2.8. Bilirubin was elevated at 3.0. Lactic acid elevated at 3.4. Sodium was low at 129 potassium low at 2.7. Note she was given 40 mEq of KCl IV to supplement. Chloride was low at 88 bicarb was 21. BUN was 8 and creatinine was 1.0 with a glucose of 214. EKG revealed ventricular paced complexes. Discussion with the telemetry stroke doctor who advised the patient be transferred to a facility as a higher level of care may be able to do continuous EEG monitoring. Calls were placed to [facility] that will accept the patient in transfer. At this time I am signing the case out to my colleague Dr. Vallejo who will continue to manage the patient and determine disposition. Lab Data Result diagrams: 06/04/21 04:18 06/04/21 04:18 Labs: Lab Results 06/04/21 Range/Units 04:18 POC Creatinine 1.0 (0.6-1.2) mg/dL Radiology Data Radiology results reviewed: Yes I reviewed the patient's radiology results. Radiology results narrative: Head CT IMPRESSION: Mild atrophy and 5 mm remote lacunar infarct in the right caudate nucleus head as previously seen. There is no cerebral hemorrhage, edema or other acute finding. EKG Data EKG #1: EKG attestation: Yes I reviewed and interpreted this EKG. Rate: normal Interpretation: other (Ventricular paced rhythm) CC TIME Critical Care Time Critical Care Time: Yes Total Critical Care Time: 40 Attestation: I spent greater than 40 minutes of critical care time with this patient exclusive of all time required for procedures. Critical care because of acute altered mental status and inability to communicate and need to protect her airway. Discharge Plan Patient/Caregiver Discharge Instructions Follow up with: Tremayne Narvaez MD [Primary Care Provider] - Prescriptions: No Action levothyroxine 150 mcg tablet 150 mcg PO QDAY Qty: 90 0RF folic acid 1 mg tablet 1 mg PO QDAY Qty: 90 1RF Eliquis 5 mg tablet 5 mg PO BID 0RF dofetilide 500 mcg capsule 500 mcg PO Q12H 0RF furosemide [Lasix] 20 mg tablet 20 mg PO DAILY Qty: 30 1RF potassium chloride [Klor-Con 10] 10 mEq tablet extended release 10 meq PO QDAY Qty: 30 0RF zolpidem 5 mg Tablet 5 mg PO HSP PRN (Reason: Insomnia) Qty: 10 0RF ondansetron 4 mg tablet,disintegrating 4 mg PO Q8H PRN (Reason: nausea and vomiting) Qty: 10 0RF
--- NOTE | 2021-06-04 04:45 | Cat Scan Report ---
CLINICAL INFORMATION: Stroke COMPARISON: 12/16/2020 TECHNIQUE: 2.5 mm helical slices were obtained in the skull base to vertex. Following reconstruction, axial reformatted images were reviewed at bone and parenchymal windows. The exam was performed using radiation dose optimization techniques including, but not limited to, automated exposure control, adjustment of the mA and/or kV according to patient size and use of iterative reconstruction technique. FINDINGS: The ventricles, sulci, fissures, and cisterns are symmetrically enlarged compatible with mild atrophy-no change. No extra-axial fluid collections are identified. 5 mm remote lacunar infarct in the right caudate nucleus head seen as before.. There is no evidence of hemorrhage, mass effect, or edema. Bone windows show no osseous abnormality. IMPRESSION: Mild atrophy and 5 mm remote lacunar infarct in the right caudate nucleus head as previously seen. There is no cerebral hemorrhage, edema or other acute finding. Interpreted and Authenticated by: Branden Alicia 06/04/21
[2021-06-04 04:46] LABS: Basophils # (Auto) 0.05 K/mcL (0.00-0.30); Basophils % (Auto) 0.5 % (0.0-2.0); Eosinophils # (Auto) 0.08 K/mcL (0.00-0.70); Eosinophils % (Auto) 0.7 % (0.0-7.0); Hematocrit 32.2 % (34.1-44.9); Hemoglobin 11.2 g/dL (11.2-15.7); Lymphocytes # (Auto) 1.06 K/mcL (1.50-4.80); Lymphocytes % (Auto) 9.6 % (15.5-49.0); Mean Cell Volume 100.3 fL (80.0-100.0); Mean Corpuscular HGB Conc 34.8 g/dL (31.0-36.0); Monocytes # (Auto) 0.53 K/mcL (0.10-0.90); Monocytes % (Auto) 4.8 % (1.0-12.0); Neutrophils % (Auto) 84.4 % (38.0-78.0); Platelet Count 147 K/mcL (140-440); RBC 3.21 M/mcL (3.59-5.38); Red Cell Distribution Width 13.3 % (11.5-14.5); WBC 11.1 K/mcL (4.5-11.0)
[2021-06-04 05:07] LABS: Alcohol, Blood < 10.0 mg/dL; Alcohol,Blood < 0.010 gm/dL (<0.010); INR 1.2 (0.9-1.1); Partial Thromboplastin Time 29.8 sec (20.0-37.0); Prothrombin Time 15.8 sec (11.9-14.5)
[2021-06-04 05:08] LABS: POC INR 1.2 (0.8-1.2); POC Pro Time 13.8 sec (11.9-14.5)
[2021-06-04] MEDS ORDERED: POTASSIUM CHLORIDE 40 MEQ in DEXTROSE 5% IN WATER 500 ML IV ONE (05:24)
[2021-06-04 05:25] LABS: ALT/SGPT 12 U/L (<40); AST/SGOT 24 U/L (<32); Albumin/Globulin Ratio 1.4 (1.0-2.3); Alkaline Phosphatase 72 U/L (39-117); Blood Urea Nitrogen 8 mg/dL (6-20); Calcium 8.1 mg/dL (8.6-10.4); Carbon Dioxide 21 mmol/L (22-30); Chloride 88 mmol/L (96-108); Globulin 2.8 gm/dL (2.2-3.7); Glomerular Filtration Rate 64; Glucose 214 mg/dL (70-105)
--- NOTE | 2021-06-04 05:26 | Cat Scan Report ---
CLINICAL INFORMATION: Code stroke COMPARISON: None. TECHNIQUE: 80 cc of Isovue-370 were injected intravenously , and using SmartPrep to maximize cerebral arterial opacification, 0.625 mm helical slices were obtained from the skull base through the cerebral vertex. Following reconstruction , sagittal, coronal and axial reformatted images were processed and reviewed at multiple windows and levels. 3D volume rendered and MIP images were acquired at a independent workstation. The exam was performed using radiation dose optimization techniques including, but not limited to, automated exposure control, adjustment of the mA and/or kV according to patient size and use of iterative reconstruction technique. FINDINGS: The intracranial internal carotid, vertebral, basilar, anterior, middle and posterior cerebral arteries and their branches are well-opacified and normal in contour and caliber without significant stenosis, occlusion or other pathology. Superficial/deep cerebral veins and deep venous sinuses are widely patent IMPRESSION: Normal exam Interpreted and Authenticated by: Branden Alicia 06/04/21
--- NOTE | 2021-06-04 05:29 | XRay Report ---
CLINICAL INFORMATION: Infiltrates COMPARISON: 12/15/2020 TECHNIQUE: PA and Lateral views FINDINGS: The heart is markedly enlarged-increased from prior exam. Mediastinum shows mild widening. Endotracheal tip is 4 cm above the carla. NG tube extends off the edge of film at least to the gastric body. The pulmonary arteries are moderately distended. Moderate patchy airspace disease throughout both lungs which may represent edema from CHF or infiltrates. Small bilateral pleural effusions noted. IMPRESSION: Severe congestive heart failure. Moderate airspace disease predominantly in the central and lower lungs is likely edema. Superimposed aspiration or infection not excluded. Interpreted and Authenticated by: Branden Alicia 06/04/21
[2021-06-04] MEDS ORDERED: FUROSEMIDE 40 MG/4 ML VIAL IV ONE (05:33)
[2021-06-04] MEDS ORDERED: POTASSIUM CHLORIDE 20 MEQ/10 ML VIAL IV ONE (05:35)
--- NOTE | 2021-06-04 05:38 | Cat Scan Report ---
CLINICAL INFORMATION: Stroke COMPARISON: None. TECHNIQUE: 80 cc of Isovue-300 were injected intravenously followed by 40 cc of normal saline flush. Using SmartPrep, 0.625 helical slices were obtained from the thoracic aortic arch through the [place] of [place]. Following reconstruction, 2.5 mm sagittal, coronal and axial reformatted images were processed. MIPS , 3-D volume rendering and CPR images were also constructed. The exam was performed using radiation dose optimization techniques including, but not limited to, automated exposure control, adjustment of the mA and/or kV according to patient size and use of iterative reconstruction technique. FINDINGS: Diffuse aneurysmal enlargement of the ascending thoracic aorta appreciated with a diameter of 5 cm. It is incompletely imaged. The thoracic aortic arch demonstrates minimal intimal thickening and conventional aortic branching. The brachiocephalic, both subclavian, both common, internal and external carotid and both vertebral arteries are widely patent without significant abnormality. Endotracheal tube is in place the tip is 4 cm above the carla. No NG tube in place. There is moderate edema in the posterior nasopharyngeal region. The thyroid not identified either diminutive or is surgically absent. Chest images show moderate right pleural effusion and mild bronchovascular edema suggesting CHF. IMPRESSION: 1. All carotid, vertebral, subclavian and brachycephalic arteries are widely patent. 2. Mild diffuse aneurysmal enlargement of the ascending thoracic aorta: 5 cm. 3. Diminutive thyroid: either atrophic or surgically absent. 4. Moderate right pleural effusion, peribronchial vascular edema and pulmonary enlargement suggesting CHF. Chest is completely imaged. Interpreted and Authenticated by: Branden Alicia 06/04/21
[2021-06-04 05:54] LABS: Amphetamine Screen,Urine None detected; Barbiturate Screen,Urine None detected; Benzodiazepines Screen,Urine None detected; Cannabinoid Screen,Urine None detected; Cocaine Screen,Urine None detected; Opiate Screen,Urine None detected; Oxycodone, Urine Screen None detected; Phencyclidine Screen,Urine None detected
[2021-06-04 05:55] LABS: Appearance,Urine CLOUDY (Clear); Bilirubin,Urine Negative (Negative); Color,Urine AMBER; Culture Indicated,Urine No; Glucose,Urine (UA) 50 mg/dL (Negative); Ketones,Urine Negative (Negative); Leukocyte Esterase,Urine 75 /uL (Negative); Mucus,Urine FEW /hpf; Nitrate,Urine Negative (Negative); Protein,Urine >=500 mg/dL (Negative); Specific Gravity,Urine 1.034 (1.000-1.035); Urine Blood 0.03 mg/dL (Negative); Urine Hyaline Cast 28 /lph (0-2); Urine RBC 13 /hpf (0-3); Urine Squamous Epithelial Cell 5 /hpf (0-4); Urine WBC 113 /hpf (0-4); Urobilinogen,Urine Negative
--- NOTE | 2021-06-04 06:50 | Emergency Department Note ---
HPI General Chief complaint: Altered Mental Status Stated complaint: unresponsive Time Seen by Provider: 06/04/21 03:56 Source: family (Sister and mother. Later the boyfriend of 30 years.) and EMS Mode of arrival: EMS Limitations: altered mental status History of Present Illness HPI Narrative: Narrative: I received this patient in sign out from Dr Flower. For full details please see his H&P. In brief, she has a h/o CHF, congenital heart disease, a fib, hypothyroidism, and presented to the ED unresponsive and incontinent. Her arrival FS was WNL and she was intubated for airway protection. CT head, CTA head/neck were negative, and telestroke felt that seizures were more likely than CVA and she was not a tPA candidate. 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 The family is not certain on the timeline but it seems that she may have quit drinking cold turkey in the past week. I spoke w/ family at bedside and they also noted that she has felt unwell for the past few days but w/ no specific Sx. No further Hx is forthcoming at this time. She remains unresponsive w/ no sedation on board. Related Data Home Medications Medication Instructions Recorded Confirmed apixaban 5 mg tablet (Eliquis) 5 mg PO BID 05/23/20 02/12/21 dofetilide 500 mcg capsule 500 mcg PO Q12H 05/23/20 02/12/21 Previous Rx's Medication Instructions Recorded zolpidem 5 mg tablet 5 mg PO HSP PRN #10 tab 12/17/20 furosemide 20 mg tablet (Lasix) 20 mg PO DAILY #30 tab 01/01/21 potassium chloride 10 mEq 10 meq PO QDAY #30 tab 01/01/21 tablet,extended release (Klor-Con) ondansetron 4 mg disintegrating 4 mg PO Q8H PRN #10 tab 03/21/21 tablet levothyroxine 150 mcg tablet 150 mcg PO QDAY #90 tab 04/22/21 folic acid 1 mg tablet 1 mg PO QDAY #90 tab 05/06/21 Allergies Allergy/AdvReac Type Severity Reaction Status Date / Time iodine [IODINE] Allergy Mild RASH Verified 02/12/21 13:13 codeine AdvReac Mild ITCHING Verified 02/12/21 13:13 Review of Systems ROS ROS Narrative: Narrative: Limitations: ROS unobtainable due to patients medical condition PFS Narrative Patient History Narrative: Narrative: Medical/Surgical/Family History All Active Problems (Updated 06/04/21 @ 08:59 by Farshad Vallejo MD) Viral illness (Acute) Congestive heart failure (CHF) (Acute) Acute hypokalemia (Acute) Acute delirium (Acute) Viral syndrome (Acute) Congenital heart defect (Chronic) CHF (congestive heart failure) (Chronic) Pacemaker (Chronic) History of heart surgery (Chronic ~1970) History of surgery (Chronic ~2018) Atrial fibrillation (Chronic) Acquired hypothyroidism (Chronic) Anemia (Acute) Medicare annual wellness visit, subsequent (Acute) Iron overload (Acute) Syncope (Acute) Hypotension (Acute) Folic acid deficiency (non anemic) (Acute) Macrocytosis (Acute) Medical History Acquired hypothyroidism Anemia Atrial fibrillation CHF (congestive heart failure) Congenital heart defect Folic acid deficiency (non anemic) Hyperglycemia Hypotension Iron overload Macrocytosis Medicare annual wellness visit, subsequent Pacemaker Pain of left calf Partial small bowel obstruction Viral syndrome Surgical History History of back surgery Isaacs Rods, Bone fusion History of cardiac radiofrequency ablation X2 History of heart surgery (~1970) Atrial septal defect History of open heart surgery (~1969) History of surgery (~2017) Pacemaker Insertion Family History Mother Cancer Hypertension Family/Other Cancer Aunt Sister Cancer Diabetes mellitus, type II Hypertension Grandmother Hypertension Maternal Social History Smoking Status: Never smoker Alcohol Intake Frequency: holiday/special occasion only Substance Use: does not use Exam Narrative Narrative: Narrative: General Limitations: altered mental status General appearance: Present obtunded Head Head: Present atraumatic and normocephalic Eye Eye: Present normal appearance and PERRL; Absent scleral icterus or conjunctival injection ENT ENT: Present other (ETT in place) Neck Neck: Present normal inspection Respiratory Respiratory: Present normal lung sounds bilaterally; Absent respiratory distress, rales/crackles, wheezes, stridor or accessory muscle use Cardiovascular Cardiovascular: Present regular rate, normal rhythm, +S1, +S2 and other (2+ B/L DP pulses, 2sec B/L great toe CR); Absent systolic murmur or diastolic murmur Adbominal Abdominal: Present soft Extremities Extremities: Present normal inspection and normal capillary refill; Absent pedal edema Neurological Neurological: Present other (GCS 4 (eyes open, no verbal response, no motor response)) Course Vital Signs Vital signs: Vital Signs Temperature 97.9 F 06/04/21 03:56 Pulse Rate 96 H 06/04/21 03:56 Respiratory Rate 22 06/04/21 03:56 Blood Pressure 115/91 06/04/21 03:56 Pulse Oximetry (%) 93 06/04/21 03:56 Temperature 97.9 F 06/04/21 03:56 Pulse Rate 70 06/04/21 08:46 Respiratory Rate 16 06/04/21 08:46 Blood Pressure 92/68 06/04/21 08:46 Pulse Oximetry (%) 100 06/04/21 08:46 MDM MDM Narrative Medical decision making narrative: Narrative: 55 yo F w/ h/o CHF, congenital heart disease, a fib, hypothyroidism, presented to the ED unresponsive and incontinent. DDx - CVA, seizure, arrhythmia, CHF, metabolic/electrolyte d/o, infectious process, toxin/medication ingestion, endocrine d/o CVA seems less likely. CT head and CTA are negative, teleneuro felt that presentation was not c/w CVA. Given the h/o incontinence, alcohol cessation, elevated lactate and ALOC, I am highly suspicious of ETOH W/D seizure w/ prolonged postictal state. EKG shows a paced rhythm, similar to previous, w/ negative Sgarbossa and troponin is negative. CHF is present but this does not appear to be an acute exacerbation. CMP reveals moderate hypokalemia which is being replaced and is unlikely to explain presentation. Mild hyponatremia also present but appears chronic based on previous labs. Ammonia is mildly elevated but again does not explain presentation. LFTs o/w WNL thus no acute hepatitis. She is afebrile w/ no leukocytosis and there is no clear indication of an infectious process. UA more c/w contamination than UTI based on negative bacteria and absence of UTI Sx in the preceding days. DIE MECHANIC infection seems less likely and LP is not indicated at this point. I will add on APAP, ASA levels. Overall a toxidrome seems less likely. TSH WNL making myxedema coma unlikely and FS WNL. 07:22 I d/w Dr King, hospitalist at [facility], who did not feel that they had anything to offer that we did not and thus T/F was not indicated. 08:13 D/w Dr Aquino, facility service associate at [facility]. He felt that this was very much c/w ETOH W/D seizure. He stated that these do not typically require neuro consults or EEG. He stated that if we are unable to provide ICU care for the patient that he would be able to accept but that he would manage this as a straightforward ETOH W/D seizure. I will d/w our hospitalist and see if he is comfortable w/ admission as it does not appear that she will need any services that we cannot provide. Of note she has started to wake up a bit, I have given fentanyl and started a propofol drip. Will order CIWA as well. 08:52. Have d/w Dr Banks, local hospitalist, who accepts pt for admission to [facility] ICU. She remains stable. She is starting to wake up, and has begun pulling at lines/tubes. However on propofol her BP trended down. Thus we are Tx'ing further w/ ativan and BP has stabilized w/ down titration of propfol. She will now be moved to the ICU for ongoing care. I d/w her partner at bedside to update him on plan of care and he is in agreement. He states that they have never had any conversation regarding code status thus at this time she is presumed full code. Lab Data Lab results reviewed: Yes I reviewed the patient's lab results. Result diagrams: 06/04/21 04:18 06/04/21 04:18 Labs: Lab Results 06/04/21 06/04/21 06/04/21 Range/Units 04:18 04:18 04:18 WBC 11.1 H (4.5-11.0) K/mcL RBC 3.21 L (3.59-5.38) M/mcL Hgb 11.2 (11.2-15.7) g/dL Hct 32.2 L (34.1-44.9) % MCV 100.3 H (80.0-100.0) fL MCH 34.9 H (26.0-34.0) pg MCHC 34.8 (31.0-36.0) g/dL RDW 13.3 (11.5-14.5) % Plt Count 147 (140-440) K/mcL MPV 10.0 (7.4-10.4) fL Neut % (Auto) 84.4 H (38.0-78.0) % Lymph % (Auto) 9.6 L (15.5-49.0) % Winston % (Auto) 4.8 (1.0-12.0) % Eos % (Auto) 0.7 (0.0-7.0) % Baso % (Auto) 0.5 (0.0-2.0) % Lymph # (Auto) 1.06 L (1.50-4.80) K/mcL Winston # (Auto) 0.53 (0.10-0.90) K/mcL Eos # (Auto) 0.08 (0.00-0.70) K/mcL Baso # (Auto) 0.05 (0.00-0.30) K/mcL Absolute Neutrophils 9.34 H (1.80-8.00) K/mcL POC PT 13.8 (11.9-14.5) sec PT 15.8 H (11.9-14.5) sec POC INR 1.2 (0.8-1.2) INR 1.2 H (0.9-1.1) APTT 29.8 (20.0-37.0) sec VBG Lactic Acid (0.5-2.0) mmol/L Sodium 129 L (133-145) mmol/L Potassium 2.7 L* (3.3-5.1) mmol/L Chloride 88 L (96-108) mmol/L Carbon Dioxide 21 L (22-30) mmol/L Anion Gap 20.0 H (8.0-16.0) BUN 8 (6-20) mg/dL Creatinine 1.0 (0.6-1.1) mg/dL POC Creatinine 1.0 (0.6-1.2) mg/dL GFR Calculation 64 Glucose 214 H (70-105) mg/dL Calcium 8.1 L (8.6-10.4) mg/dL Magnesium (1.6-2.5) mg/dL Total Bilirubin 3.0 H (0.1-1.0) mg/dL AST 24 (<32) U/L ALT 12 (<40) U/L Alkaline Phosphatase 72 (39-117) U/L Ammonia (11-51) umol/L Troponin T (<0.03) ng/mL Total Protein 6.8 (5.9-8.4) gm/dL Albumin 4.0 (3.2-5.2) gm/dL Globulin 2.8 (2.2-3.7) gm/dL Albumin/Globulin Ratio 1.4 (1.0-2.3) TSH (0.27-5.01) uIU/mL Prolactin (4.8-23.3) ng/mL Urine Color Urine Appearance (Clear) Urine pH (5.0-9.0) Ur Specific Minter (1.000-1.035) Urine Protein (Negative) mg/dL Urine Glucose (UA) (Negative) mg/dL Urine Ketones (Negative) mg/dL Urine Occult Blood (Negative) mg/dL Urine Nitrate (Negative) Urine Bilirubin (Negative) mg/dL Urine Urobilinogen mg/dL Ur Leukocyte Esterase (Negative) /uL Urine RBC (0-3) /hpf Urine WBC (0-4) /hpf Ur Squamous Epith Cells (0-4) /hpf Urine Bacteria (0) /hpf Hyaline Casts (0-2) /lph Urine Mucus (None) /hpf Ur Culture Indicated? Salicylates mg/dL Urine Opiates Screen Ur Opiates Confirm Ur Oxycodone Screen Urine Methadone Screen Ur Methadone Confirm Acetaminophen ug/mL Ur Barbiturates Screen Ur Barbiturate Confirm Ur Phencyclidine Scrn Urine PCP Confirm Ur Amphetamines Screen U Amphetamines Confirm U Benzodiazepines Scrn Urine Cocaine Screen Urine Cocaine Confirm U Cannabinoids Confirm U Marijuana (THC) Screen Ethyl Alcohol (<0.010) gm/dL 06/04/21 06/04/21 06/04/21 Range/Units 04:18 04:18 04:18 WBC (4.5-11.0) K/mcL RBC (3.59-5.38) M/mcL Hgb (11.2-15.7) g/dL Hct (34.1-44.9) % MCV (80.0-100.0) fL MCH (26.0-34.0) pg MCHC (31.0-36.0) g/dL RDW (11.5-14.5) % Plt Count (140-440) K/mcL MPV (7.4-10.4) fL Neut % (Auto) (38.0-78.0) % Lymph % (Auto) (15.5-49.0) % Winston % (Auto) (1.0-12.0) % Eos % (Auto) (0.0-7.0) % Baso % (Auto) (0.0-2.0) % Lymph # (Auto) (1.50-4.80) K/mcL Winston # (Auto) (0.10-0.90) K/mcL Eos # (Auto) (0.00-0.70) K/mcL Baso # (Auto) (0.00-0.30) K/mcL Absolute Neutrophils (1.80-8.00) K/mcL POC PT (11.9-14.5) sec PT (11.9-14.5) sec POC INR (0.8-1.2) INR (0.9-1.1) APTT (20.0-37.0) sec VBG Lactic Acid (0.5-2.0) mmol/L Sodium (133-145) mmol/L Potassium (3.3-5.1) mmol/L Chloride (96-108) mmol/L Carbon Dioxide (22-30) mmol/L Anion Gap (8.0-16.0) BUN (6-20) mg/dL Creatinine (0.6-1.1) mg/dL POC Creatinine (0.6-1.2) mg/dL GFR Calculation Glucose (70-105) mg/dL Calcium (8.6-10.4) mg/dL Magnesium (1.6-2.5) mg/dL Total Bilirubin (0.1-1.0) mg/dL AST (<32) U/L ALT (<40) U/L Alkaline Phosphatase (39-117) U/L Ammonia 59 H (11-51) umol/L Troponin T < 0.01 (<0.03) ng/mL Total Protein (5.9-8.4) gm/dL Albumin (3.2-5.2) gm/dL Globulin (2.2-3.7) gm/dL Albumin/Globulin Ratio (1.0-2.3) TSH (0.27-5.01) uIU/mL Prolactin (4.8-23.3) ng/mL Urine Color Urine Appearance (Clear) Urine pH (5.0-9.0) Ur Specific Minter (1.000-1.035) Urine Protein (Negative) mg/dL Urine Glucose (UA) (Negative) mg/dL Urine Ketones (Negative) mg/dL Urine Occult Blood (Negative) mg/dL Urine Nitrate (Negative) Urine Bilirubin (Negative) mg/dL Urine Urobilinogen mg/dL Ur Leukocyte Esterase (Negative) /uL Urine RBC (0-3) /hpf Urine WBC (0-4) /hpf Ur Squamous Epith Cells (0-4) /hpf Urine Bacteria (0) /hpf Hyaline Casts (0-2) /lph Urine Mucus (None) /hpf Ur Culture Indicated? Salicylates mg/dL Urine Opiates Screen Ur Opiates Confirm Ur Oxycodone Screen Urine Methadone Screen Ur Methadone Confirm Acetaminophen ug/mL Ur Barbiturates Screen Ur Barbiturate Confirm Ur Phencyclidine Scrn Urine PCP Confirm Ur Amphetamines Screen U Amphetamines Confirm U Benzodiazepines Scrn Urine Cocaine Screen Urine Cocaine Confirm U Cannabinoids Confirm U Marijuana (THC) Screen Ethyl Alcohol < 0.010 (<0.010) gm/dL 06/04/21 06/04/21 06/04/21 Range/Units 04:18 04:18 04:18 WBC (4.5-11.0) K/mcL RBC (3.59-5.38) M/mcL Hgb (11.2-15.7) g/dL Hct (34.1-44.9) % MCV (80.0-100.0) fL MCH (26.0-34.0) pg MCHC (31.0-36.0) g/dL RDW (11.5-14.5) % Plt Count (140-440) K/mcL MPV (7.4-10.4) fL Neut % (Auto) (38.0-78.0) % Lymph % (Auto) (15.5-49.0) % Winston % (Auto) (1.0-12.0) % Eos % (Auto) (0.0-7.0) % Baso % (Auto) (0.0-2.0) % Lymph # (Auto) (1.50-4.80) K/mcL Winston # (Auto) (0.10-0.90) K/mcL Eos # (Auto) (0.00-0.70) K/mcL Baso # (Auto) (0.00-0.30) K/mcL Absolute Neutrophils (1.80-8.00) K/mcL POC PT (11.9-14.5) sec PT (11.9-14.5) sec POC INR (0.8-1.2) INR (0.9-1.1) APTT (20.0-37.0) sec VBG Lactic Acid 3.4 H (0.5-2.0) mmol/L Sodium (133-145) mmol/L Potassium (3.3-5.1) mmol/L Chloride (96-108) mmol/L Carbon Dioxide (22-30) mmol/L Anion Gap (8.0-16.0) BUN (6-20) mg/dL Creatinine (0.6-1.1) mg/dL POC Creatinine (0.6-1.2) mg/dL GFR Calculation Glucose (70-105) mg/dL Calcium (8.6-10.4) mg/dL Magnesium (1.6-2.5) mg/dL Total Bilirubin (0.1-1.0) mg/dL AST (<32) U/L ALT (<40) U/L Alkaline Phosphatase (39-117) U/L Ammonia (11-51) umol/L Troponin T (<0.03) ng/mL Total Protein (5.9-8.4) gm/dL Albumin (3.2-5.2) gm/dL Globulin (2.2-3.7) gm/dL Albumin/Globulin Ratio (1.0-2.3) TSH 2.82 (0.27-5.01) uIU/mL Prolactin (4.8-23.3) ng/mL Urine Color Urine Appearance (Clear) Urine pH (5.0-9.0) Ur Specific Minter (1.000-1.035) Urine Protein (Negative) mg/dL Urine Glucose (UA) (Negative) mg/dL Urine Ketones (Negative) mg/dL Urine Occult Blood (Negative) mg/dL Urine Nitrate (Negative) Urine Bilirubin (Negative) mg/dL Urine Urobilinogen mg/dL Ur Leukocyte Esterase (Negative) /uL Urine RBC (0-3) /hpf Urine WBC (0-4) /hpf Ur Squamous Epith Cells (0-4) /hpf Urine Bacteria (0) /hpf Hyaline Casts (0-2) /lph Urine Mucus (None) /hpf Ur Culture Indicated? Salicylates < 0.3 mg/dL Urine Opiates Screen Ur Opiates Confirm Ur Oxycodone Screen Urine Methadone Screen Ur Methadone Confirm Acetaminophen < 5.0 ug/mL Ur Barbiturates Screen Ur Barbiturate Confirm Ur Phencyclidine Scrn Urine PCP Confirm Ur Amphetamines Screen U Amphetamines Confirm U Benzodiazepines Scrn Urine Cocaine Screen Urine Cocaine Confirm U Cannabinoids Confirm U Marijuana (THC) Screen Ethyl Alcohol (<0.010) gm/dL 06/04/21 06/04/21 06/04/21 Range/Units 04:18 04:18 05:04 WBC (4.5-11.0) K/mcL RBC (3.59-5.38) M/mcL Hgb (11.2-15.7) g/dL Hct (34.1-44.9) % MCV (80.0-100.0) fL MCH (26.0-34.0) pg MCHC (31.0-36.0) g/dL RDW (11.5-14.5) % Plt Count (140-440) K/mcL MPV (7.4-10.4) fL Neut % (Auto) (38.0-78.0) % Lymph % (Auto) (15.5-49.0) % Winston % (Auto) (1.0-12.0) % Eos % (Auto) (0.0-7.0) % Baso % (Auto) (0.0-2.0) % Lymph # (Auto) (1.50-4.80) K/mcL Winston # (Auto) (0.10-0.90) K/mcL Eos # (Auto) (0.00-0.70) K/mcL Baso # (Auto) (0.00-0.30) K/mcL Absolute Neutrophils (1.80-8.00) K/mcL POC PT (11.9-14.5) sec PT (11.9-14.5) sec POC INR (0.8-1.2) INR (0.9-1.1) APTT (20.0-37.0) sec VBG Lactic Acid (0.5-2.0) mmol/L Sodium (133-145) mmol/L Potassium (3.3-5.1) mmol/L Chloride (96-108) mmol/L Carbon Dioxide (22-30) mmol/L Anion Gap (8.0-16.0) BUN (6-20) mg/dL Creatinine (0.6-1.1) mg/dL POC Creatinine (0.6-1.2) mg/dL GFR Calculation Glucose (70-105) mg/dL Calcium (8.6-10.4) mg/dL Magnesium 1.6 (1.6-2.5) mg/dL Total Bilirubin (0.1-1.0) mg/dL AST (<32) U/L ALT (<40) U/L Alkaline Phosphatase (39-117) U/L Ammonia (11-51) umol/L Troponin T (<0.03) ng/mL Total Protein (5.9-8.4) gm/dL Albumin (3.2-5.2) gm/dL Globulin (2.2-3.7) gm/dL Albumin/Globulin Ratio (1.0-2.3) TSH (0.27-5.01) uIU/mL Prolactin 126.1 H (4.8-23.3) ng/mL Urine Color Kelli Urine Appearance Cloudy A (Clear) Urine pH 5.0 (5.0-9.0) Ur Specific Minter 1.034 (1.000-1.035) Urine Protein >=500 A (Negative) mg/dL Urine Glucose (UA) 50 A (Negative) mg/dL Urine Ketones Negative (Negative) mg/dL Urine Occult Blood 0.03 (Negative) mg/dL Urine Nitrate Negative (Negative) Urine Bilirubin Negative (Negative) mg/dL Urine Urobilinogen Negative mg/dL Ur Leukocyte Esterase 75 A (Negative) /uL Urine RBC 13 H (0-3) /hpf Urine WBC 113 H (0-4) /hpf Ur Squamous Epith Cells 5 H (0-4) /hpf Urine Bacteria None (0) /hpf Hyaline Casts 28 H (0-2) /lph Urine Mucus Few A (None) /hpf Ur Culture Indicated? No Salicylates mg/dL Urine Opiates Screen Ur Opiates Confirm Ur Oxycodone Screen Urine Methadone Screen Ur Methadone Confirm Acetaminophen ug/mL Ur Barbiturates Screen Ur Barbiturate Confirm Ur Phencyclidine Scrn Urine PCP Confirm Ur Amphetamines Screen U Amphetamines Confirm U Benzodiazepines Scrn Urine Cocaine Screen Urine Cocaine Confirm U Cannabinoids Confirm U Marijuana (THC) Screen Ethyl Alcohol (<0.010) gm/dL 06/04/21 Range/Units 05:05 WBC (4.5-11.0) K/mcL RBC (3.59-5.38) M/mcL Hgb (11.2-15.7) g/dL Hct (34.1-44.9) % MCV (80.0-100.0) fL MCH (26.0-34.0) pg MCHC (31.0-36.0) g/dL RDW (11.5-14.5) % Plt Count (140-440) K/mcL MPV (7.4-10.4) fL Neut % (Auto) (38.0-78.0) % Lymph % (Auto) (15.5-49.0) % Winston % (Auto) (1.0-12.0) % Eos % (Auto) (0.0-7.0) % Baso % (Auto) (0.0-2.0) % Lymph # (Auto) (1.50-4.80) K/mcL Winston # (Auto) (0.10-0.90) K/mcL Eos # (Auto) (0.00-0.70) K/mcL Baso # (Auto) (0.00-0.30) K/mcL Absolute Neutrophils (1.80-8.00) K/mcL POC PT (11.9-14.5) sec PT (11.9-14.5) sec POC INR (0.8-1.2) INR (0.9-1.1) APTT (20.0-37.0) sec VBG Lactic Acid (0.5-2.0) mmol/L Sodium (133-145) mmol/L Potassium (3.3-5.1) mmol/L Chloride (96-108) mmol/L Carbon Dioxide (22-30) mmol/L Anion Gap (8.0-16.0) BUN (6-20) mg/dL Creatinine (0.6-1.1) mg/dL POC Creatinine (0.6-1.2) mg/dL GFR Calculation Glucose (70-105) mg/dL Calcium (8.6-10.4) mg/dL Magnesium (1.6-2.5) mg/dL Total Bilirubin (0.1-1.0) mg/dL AST (<32) U/L ALT (<40) U/L Alkaline Phosphatase (39-117) U/L Ammonia (11-51) umol/L Troponin T (<0.03) ng/mL Total Protein (5.9-8.4) gm/dL Albumin (3.2-5.2) gm/dL Globulin (2.2-3.7) gm/dL Albumin/Globulin Ratio (1.0-2.3) TSH (0.27-5.01) uIU/mL Prolactin (4.8-23.3) ng/mL Urine Color Urine Appearance (Clear) Urine pH (5.0-9.0) Ur Specific Minter (1.000-1.035) Urine Protein (Negative) mg/dL Urine Glucose (UA) (Negative) mg/dL Urine Ketones (Negative) mg/dL Urine Occult Blood (Negative) mg/dL Urine Nitrate (Negative) Urine Bilirubin (Negative) mg/dL Urine Urobilinogen mg/dL Ur Leukocyte Esterase (Negative) /uL Urine RBC (0-3) /hpf Urine WBC (0-4) /hpf Ur Squamous Epith Cells (0-4) /hpf Urine Bacteria (0) /hpf Hyaline Casts (0-2) /lph Urine Mucus (None) /hpf Ur Culture Indicated? Salicylates mg/dL Urine Opiates Screen None detected Ur Opiates Confirm TNP Ur Oxycodone Screen None detected Urine Methadone Screen None detected Ur Methadone Confirm TNP Acetaminophen ug/mL Ur Barbiturates Screen None detected Ur Barbiturate Confirm TNP Ur Phencyclidine Scrn None detected Urine PCP Confirm TNP Ur Amphetamines Screen None detected U Amphetamines Confirm TNP U Benzodiazepines Scrn None detected Urine Cocaine Screen None detected Urine Cocaine Confirm TNP U Cannabinoids Confirm TNP U Marijuana (THC) Screen None detected Ethyl Alcohol (<0.010) gm/dL ED POC Tests ED POC Tests: TANO - SARS Antigen Negative CC TIME Critical Care Time Attestation: Approximately 35 minutes of critical care time was used in order to assess and manage the high probability of imminent or life threatening deterioration to the central nervous system which required my highest level of preparedness and interventions with frequent patient assessments. This time is excluding time spent on separately billable procedures. Discharge Plan Patient/Caregiver Discharge Instructions Pt seen by C[facility] DINING ROOM ATTENDANT/PA only: No Clinical Impression: Acute delirium, Acute hypokalemia Congestive heart failure (CHF) Qualifiers: Heart failure type: unspecified Heart failure chronicity: unspecified Qualified Code(s): I50.9 - Heart failure, unspecified Patient Disposition: Xfer As Inpt ([facility]) Condition: Critical Discharge Date/Time: 06/04/21 09:29
[2021-06-04] MEDS ORDERED: fentaNYL 100 MCG/2 ML VIAL IV ONE (07:24)
[2021-06-04 07:35] LABS: Acetaminophen < 5.0 ug/mL; Salicylate < 0.3 mg/dL
[2021-06-04] MEDS: PROPOFOL 1,000 MG in PREMIX 1 BAG IV SCH ×2 (08:15→18:49)
--- NOTE | 2021-06-04 08:28 | EKG ---
[facility] Test Date: 2021-06-04 Pat Name: Peg Kitchen Department: ED Room: Gender: Female Transcriber: VIKY : 1965 Requested By: Kyle Flower Order Number: [id number] Reading MD: Gabe Ely D.O. Measurements Intervals [place] Rate: 91 P: 130 [place]: 250 QRS: 124 QRSD: 187 T: -67 QT: 533 QTc: 657 Interpretive Statements Ventricular-paced complexes Electronically Signed On 06-04-2021 8:27:49 PDT by Gabe Ely D.O. /[email or web address]/[id number]
[2021-06-04] MEDS: LORazepam 2 MG/ML VIAL IV PRN ×3 (08:39→10:43)
--- NOTE | 2021-06-04 10:41 | Internal Med History&Physical ---
HPI History of Present Illness Patient information: Note initiated : 06/04/21 at 10:32 am Service Date, if different from initiated Date: [] Patient: Peg Kitchen a 55 y/o F admitted on 06/04/21 for Unresponsive. Chief Complaint: [] History of present illness: Ms. Kitchen is a 55 year old F History obtained from chart as patient is currently intubated and sedated. Per the boyfriend he woke up and heard her gurgling. Then she turned rigid and started shaking and then started vomiting. Per the boyfriend she is never had a seizure before. She recently abruptly stopped drinking alcohol and has a his heavy history of alcohol abuse. Patient was incontinent of both bowel and bladder. He was normal when she went to bed. Case was initially discussed with stroke neurologist who felt patient should be transferred for continuous EEG monitoring but then with film painter was called at [facility] they felt it was alcohol related withdrawal and that patient could be treated locally. CTA head neck were negative CT head was negative for acute but showed atrophy mild. Per the family she had been feeling unwell for several days but had no specific complaints. In the ED she remained unresponsive with the low Jessica Coma Scale and was intubated for airway protection. Chest x-ray with pulmonary edema. Patient did receive Lasix. Concern for aspiration Prolactin level elevated providing evidence for suspected seizure, also elevated lactate. Review of systems: Unable to obtain given sedation and ventilated [facility] All Active Problems (Updated 06/04/21 @ 08:59 by Farshad Vallejo MD) Viral illness (Acute) Congestive heart failure (CHF) (Acute) Acute hypokalemia (Acute) Acute delirium (Acute) Viral syndrome (Acute) Congenital heart defect (Chronic) CHF (congestive heart failure) (Chronic) Pacemaker (Chronic) History of heart surgery (Chronic ~1970) History of surgery (Chronic ~2018) Atrial fibrillation (Chronic) Acquired hypothyroidism (Chronic) Anemia (Acute) Medicare annual wellness visit, subsequent (Acute) Iron overload (Acute) Syncope (Acute) Hypotension (Acute) Folic acid deficiency (non anemic) (Acute) Macrocytosis (Acute) Medical History Acquired hypothyroidism Anemia Atrial fibrillation CHF (congestive heart failure) Congenital heart defect Folic acid deficiency (non anemic) Hyperglycemia Hypotension Iron overload Macrocytosis Medicare annual wellness visit, subsequent Pacemaker Pain of left calf Partial small bowel obstruction Viral syndrome Surgical History History of back surgery Isaacs Rods, Bone fusion History of cardiac radiofrequency ablation X2 History of heart surgery (~1970) Atrial septal defect History of open heart surgery (~1969) History of surgery (~2018) Pacemaker Insertion Family History Mother Cancer Hypertension Family/Other Cancer Aunt Sister Cancer Diabetes mellitus, type II Hypertension Grandmother Hypertension Maternal Social History marital status: single smoking status: Never smoker alcohol intake frequency: holiday/special occasion only substance use type: does not use MEDS/ALLERGIES Home Medications and Allergies Home Medications Medication Instructions Recorded Confirmed Type apixaban 5 mg tablet (Eliquis) 5 mg PO BID 05/23/20 02/12/21 History dofetilide 500 mcg capsule 500 mcg PO Q12H 05/23/20 02/12/21 History zolpidem 5 mg tablet 5 mg PO HSP PRN #10 tab 12/17/20 02/12/21 Rx furosemide 20 mg tablet (Lasix) 20 mg PO DAILY #30 tab 01/01/21 02/12/21 Rx potassium chloride 10 mEq 10 meq PO QDAY #30 tab 01/01/21 02/12/21 Rx tablet,extended release (Klor-Con) ondansetron 4 mg disintegrating 4 mg PO Q8H PRN #10 tab 03/21/21 Rx tablet levothyroxine 150 mcg tablet 150 mcg PO QDAY #90 tab 04/22/21 Rx folic acid 1 mg tablet 1 mg PO QDAY #90 tab 05/06/21 Rx Allergies Allergy/AdvReac Type Severity Reaction Status Date / Time iodine [IODINE] Allergy Mild RASH Verified 02/12/21 13:13 codeine AdvReac Mild ITCHING Verified 02/12/21 13:13 EXAM Constitutional Vitals: Temp Pulse Resp BP Pulse Ox 98.1 F 70 18 105/71 100 06/04/21 10:00 06/04/21 10:00 06/04/21 10:00 06/04/21 10:00 06/04/21 10:00 Exam: General: Sedated on vent, no acute Distress Eyes/N/T: PERRL, MMM Head/Neck: neck supple, normocephalic atraumatic CV: RRR, No murmurs, normal s1/s2 Pulm: Rhonchi/rales b/l, no wheezing Abd: soft, nontender, +BS x4 Ext: no clubbing/cyanosis/edema Neuro: Unable to form thorough exam as patient is sedated on the vent. However, PERRL and spontaneously moves extremities Skin: warm/dry DATA Data Completed and Pending Labs: Labs from last 24 hours 06/04/21 06/04/21 06/04/21 05:05 05:04 04:18 WBC RBC Hgb Hct MCV MCH MCHC RDW Plt Count MPV Neut % (Auto) Lymph % (Auto) [place] % (Auto) Eos % (Auto) Baso % (Auto) Lymph # (Auto) [place] # (Auto) Eos # (Auto) Baso # (Auto) Absolute Neutrophils POC PT PT POC INR INR APTT VBG Lactic Acid Sodium Potassium Chloride Carbon Dioxide Anion Gap BUN Creatinine POC Creatinine GFR Calculation Glucose Calcium Magnesium Total Bilirubin AST ALT Alkaline Phosphatase Ammonia Troponin T Total Protein Albumin Globulin Albumin/Globulin Ratio TSH Prolactin 126.1 H Urine Color Kelli Urine Appearance Cloudy A Urine pH 5.0 Ur Specific [place] 1.034 Urine Protein >=500 A Urine Glucose (UA) 50 A Urine Ketones Negative Urine Occult Blood 0.03 Urine Nitrate Negative Urine Bilirubin Negative Urine Urobilinogen Negative Ur Leukocyte Esterase 75 A Urine RBC 13 H Urine WBC 113 H Ur Squamous Epith Cells 5 H Urine Bacteria None Hyaline Casts 28 H Urine Mucus Few A Ur Culture Indicated? No Salicylates Urine Opiates Screen None detected Ur Opiates Confirm TNP Ur Oxycodone Screen None detected Urine Methadone Screen None detected Ur Methadone Confirm TNP Acetaminophen Ur Barbiturates Screen None detected Ur Barbiturate Confirm TNP Ur Phencyclidine Scrn None detected Urine PCP Confirm TNP Ur Amphetamines Screen None detected U Amphetamines Confirm TNP U Benzodiazepines Scrn None detected Urine Cocaine Screen None detected Urine Cocaine Confirm TNP U Cannabinoids Confirm TNP U Marijuana (THC) Screen None detected Ethyl Alcohol 06/04/21 06/04/21 06/04/21 04:18 04:18 04:18 WBC RBC Hgb Hct MCV MCH MCHC RDW Plt Count MPV Neut % (Auto) Lymph % (Auto) [place] % (Auto) Eos % (Auto) Baso % (Auto) Lymph # (Auto) [place] # (Auto) Eos # (Auto) Baso # (Auto) Absolute Neutrophils POC PT PT POC INR INR APTT VBG Lactic Acid 3.4 H Sodium Potassium Chloride Carbon Dioxide Anion Gap BUN Creatinine POC Creatinine GFR Calculation Glucose Calcium Magnesium 1.6 Total Bilirubin AST ALT Alkaline Phosphatase Ammonia Troponin T Total Protein Albumin Globulin Albumin/Globulin Ratio TSH Prolactin Urine Color Urine Appearance Urine pH Ur Specific [place] Urine Protein Urine Glucose (UA) Urine Ketones Urine Occult Blood Urine Nitrate Urine Bilirubin Urine Urobilinogen Ur Leukocyte Esterase Urine RBC Urine WBC Ur Squamous Epith Cells Urine Bacteria Hyaline Casts Urine Mucus Ur Culture Indicated? Salicylates < 0.3 Urine Opiates Screen Ur Opiates Confirm Ur Oxycodone Screen Urine Methadone Screen Ur Methadone Confirm Acetaminophen < 5.0 Ur Barbiturates Screen Ur Barbiturate Confirm Ur Phencyclidine Scrn Urine PCP Confirm Ur Amphetamines Screen U Amphetamines Confirm U Benzodiazepines Scrn Urine Cocaine Screen Urine Cocaine Confirm U Cannabinoids Confirm U Marijuana (THC) Screen Ethyl Alcohol 06/04/21 06/04/21 06/04/21 04:18 04:18 04:18 WBC RBC Hgb Hct MCV MCH MCHC RDW Plt Count MPV Neut % (Auto) Lymph % (Auto) [place] % (Auto) Eos % (Auto) Baso % (Auto) Lymph # (Auto) [place] # (Auto) Eos # (Auto) Baso # (Auto) Absolute Neutrophils POC PT PT POC INR INR APTT VBG Lactic Acid Sodium Potassium Chloride Carbon Dioxide Anion Gap BUN Creatinine POC Creatinine GFR Calculation Glucose Calcium Magnesium Total Bilirubin AST ALT Alkaline Phosphatase Ammonia 59 H Troponin T Total Protein Albumin Globulin Albumin/Globulin Ratio TSH 2.82 Prolactin Urine Color Urine Appearance Urine pH Ur Specific [place] Urine Protein Urine Glucose (UA) Urine Ketones Urine Occult Blood Urine Nitrate Urine Bilirubin Urine Urobilinogen Ur Leukocyte Esterase Urine RBC Urine WBC Ur Squamous Epith Cells Urine Bacteria Hyaline Casts Urine Mucus Ur Culture Indicated? Salicylates Urine Opiates Screen Ur Opiates Confirm Ur Oxycodone Screen Urine Methadone Screen Ur Methadone Confirm Acetaminophen Ur Barbiturates Screen Ur Barbiturate Confirm Ur Phencyclidine Scrn Urine PCP Confirm Ur Amphetamines Screen U Amphetamines Confirm U Benzodiazepines Scrn Urine Cocaine Screen Urine Cocaine Confirm U Cannabinoids Confirm U Marijuana (THC) Screen Ethyl Alcohol < 0.010 06/04/21 06/04/21 06/04/21 04:18 04:18 04:18 WBC RBC Hgb Hct MCV MCH MCHC RDW Plt Count MPV Neut % (Auto) Lymph % (Auto) [place] % (Auto) Eos % (Auto) Baso % (Auto) Lymph # (Auto) [place] # (Auto) Eos # (Auto) Baso # (Auto) Absolute Neutrophils POC PT 13.8 PT 15.8 H POC INR 1.2 INR 1.2 H APTT 29.8 VBG Lactic Acid Sodium 129 L Potassium 2.7 L* Chloride 88 L Carbon Dioxide 21 L Anion Gap 20.0 H BUN 8 Creatinine 1.0 POC Creatinine 1.0 GFR Calculation 64 Glucose 214 H Calcium 8.1 L Magnesium Total Bilirubin 3.0 H AST 24 ALT 12 Alkaline Phosphatase 72 Ammonia Troponin T < 0.01 Total Protein 6.8 Albumin 4.0 Globulin 2.8 Albumin/Globulin Ratio 1.4 TSH Prolactin Urine Color Urine Appearance Urine pH Ur Specific [place] Urine Protein Urine Glucose (UA) Urine Ketones Urine Occult Blood Urine Nitrate Urine Bilirubin Urine Urobilinogen Ur Leukocyte Esterase Urine RBC Urine WBC Ur Squamous Epith Cells Urine Bacteria Hyaline Casts Urine Mucus Ur Culture Indicated? Salicylates Urine Opiates Screen Ur Opiates Confirm Ur Oxycodone Screen Urine Methadone Screen Ur Methadone Confirm Acetaminophen Ur Barbiturates Screen Ur Barbiturate Confirm Ur Phencyclidine Scrn Urine PCP Confirm Ur Amphetamines Screen U Amphetamines Confirm U Benzodiazepines Scrn Urine Cocaine Screen Urine Cocaine Confirm U Cannabinoids Confirm U Marijuana (THC) Screen Ethyl Alcohol 06/04/21 04:18 WBC 11.1 H RBC 3.21 L Hgb 11.2 Hct 32.2 L MCV 100.3 H MCH 34.9 H MCHC 34.8 RDW 13.3 Plt Count 147 MPV 10.0 Neut % (Auto) 84.4 H Lymph % (Auto) 9.6 L [place] % (Auto) 4.8 Eos % (Auto) 0.7 Baso % (Auto) 0.5 Lymph # (Auto) 1.06 L [place] # (Auto) 0.53 Eos # (Auto) 0.08 Baso # (Auto) 0.05 Absolute Neutrophils 9.34 H POC PT PT POC INR INR APTT VBG Lactic Acid Sodium Potassium Chloride Carbon Dioxide Anion Gap BUN Creatinine POC Creatinine GFR Calculation Glucose Calcium Magnesium Total Bilirubin AST ALT Alkaline Phosphatase Ammonia Troponin T Total Protein Albumin Globulin Albumin/Globulin Ratio TSH Prolactin Urine Color Urine Appearance Urine pH Ur Specific [place] Urine Protein Urine Glucose (UA) Urine Ketones Urine Occult Blood Urine Nitrate Urine Bilirubin Urine Urobilinogen Ur Leukocyte Esterase Urine RBC Urine WBC Ur Squamous Epith Cells Urine Bacteria Hyaline Casts Urine Mucus Ur Culture Indicated? Salicylates Urine Opiates Screen Ur Opiates Confirm Ur Oxycodone Screen Urine Methadone Screen Ur Methadone Confirm Acetaminophen Ur Barbiturates Screen Ur Barbiturate Confirm Ur Phencyclidine Scrn Urine PCP Confirm Ur Amphetamines Screen U Amphetamines Confirm U Benzodiazepines Scrn Urine Cocaine Screen Urine Cocaine Confirm U Cannabinoids Confirm U Marijuana (THC) Screen Ethyl Alcohol A/P Narrative A/P Narrative: A: *Likely alcohol withdrawal seizure: *Lactic acidosis: 2/2 above *Mechanical ventilation placed d/t inability to protect airway: *Encephalopathy: 2/2 above -UDS neg, no acute CT brain findings *Alcohol abuse: Recently quit abruptly likely causing above *h/o Low BP per significant other: *Hyponatremia: *Hypokalemia: *Likely Aspiration: *acute on chronic systolic(45-50%)/diastolic(I) CHF & Right Heart Failure: -pt has AICD/PPM *h/o Afib: On Eliquis/dofetilide *CKD II: *Macrocytic anemia, chronic: *h/o CVA: Incidentally found on CT brain. check lipid panel, start statin *Hypothyroidism: tsh wnl P: -Vent management, sedation vacation and weaning trials in a.m. -f/u lactate -Lasix -CIWA, vitamins, prn benzo -Replete electrolytes -repeat ua specimen -check Cortisol given history of hypotension -check cpk -PT/OT when available -Referral to see Dr. Irving outpt -ppx: eliquis / H2 Time Spent With Patient Time: Total time spent is greater than 50% in coordination of care (as documented) at patient's floor/unit and/or counseling patient: Critical care time 45 minutes Total time spent with greater than 50% in coordination of care (as documented) at patient's floor/unit and/or counseling patient:: Greater than 70 minutes QUALITY Stroke Symptom Onset Unknown: Yes
[2021-06-04] MEDS ORDERED: METOCLOPRAMIDE 10 MG/2 ML VIAL IV PRN (10:54)
[2021-06-04] MEDS ORDERED: morphine 4 MG/ML VIAL IV PRN (10:54)
[2021-06-04] MEDS ORDERED: POTASSIUM CHLORIDE 20 MEQ TABLET PO PRN ×2 (10:54)
[2021-06-04] MEDS ORDERED: DEXTROSE 50% 50 ML VIAL IV PRN (10:54)
[2021-06-04] MEDS ORDERED: ACETAMINOPHEN 160 MG/5 ML ORAL.SOL PT PRN (10:54)
[2021-06-04] MEDS ORDERED: ONDANSETRON 4 MG/2 ML VIAL IV PRN (10:54)
[2021-06-04] MEDS ORDERED: IPRATROPIUM/ALBUTEROL 3 ML AMPUL.NEB NEB PRN (10:54)
[2021-06-04] MEDS ORDERED: DEXTROSE 31 GM ORAL.SUSP PO PRN (10:54)
[2021-06-04] MEDS ORDERED: MAGNESIUM SULFATE 2 GM/50 ML BAG IV PRN (10:54)
[2021-06-04] MEDS ORDERED: cloNIDine HCL 0.1 MG TABLET PO PRN (10:59)
[2021-06-04] MEDS ORDERED: METOPROLOL TARTRATE 5 MG/5 ML VIAL IV PRN (10:59)
[2021-06-04] MEDS ORDERED: MIDAZOLAM HCL 50 MG in 0.9 % SODIUM CHLORIDE 90 ML IV SCH (11:00)
[2021-06-04] MEDS: INSULIN LISPRO 1 UNIT/0.01 ML UNIT SQ SCH ×3 (12:09→23:27)
[2021-06-04] MEDS: THIAMINE 100 MG in 0.9 % SODIUM CHLORIDE 50 ML IV SCH (12:09)
[2021-06-04 12:50] LABS: Creatine Kinase 77 U/L (24-170); HDL Cholesterol 69 mg/dL (>40); LDL Cholesterol,Calculated 42 mg/dL (<100); Non-HDL Cholesterol 58 mg/dL (<130); Triglycerides 83 mg/dL (<150)
--- NOTE | 2021-06-04 13:02 | Internal Med History&Physical ---
HPI History of Present Illness Patient information: Note initiated : 06/04/21 at 1:02 pm Service Date, if different from initiated Date: [] Patient: Peg Kitchen a 55 y/o F admitted on 06/04/21 for Unresponsive. Chief Complaint: [] History of present illness: Ms. Kitchen is a 55 year old F [facility] All Active Problems (Updated 06/04/21 @ 08:59 by Farshad Vallejo MD) Viral illness (Acute) Congestive heart failure (CHF) (Acute) Acute hypokalemia (Acute) Acute delirium (Acute) Viral syndrome (Acute) Congenital heart defect (Chronic) CHF (congestive heart failure) (Chronic) Pacemaker (Chronic) History of heart surgery (Chronic ~1970) History of surgery (Chronic ~2018) Atrial fibrillation (Chronic) Acquired hypothyroidism (Chronic) Anemia (Acute) Medicare annual wellness visit, subsequent (Acute) Iron overload (Acute) Syncope (Acute) Hypotension (Acute) Folic acid deficiency (non anemic) (Acute) Macrocytosis (Acute) Medical History Acquired hypothyroidism Anemia Atrial fibrillation CHF (congestive heart failure) Congenital heart defect Folic acid deficiency (non anemic) Hyperglycemia Hypotension Iron overload Macrocytosis Medicare annual wellness visit, subsequent Pacemaker Pain of left calf Partial small bowel obstruction Viral syndrome Surgical History History of back surgery Isaacs Rods, Bone fusion History of cardiac radiofrequency ablation X2 History of heart surgery (~1970) Atrial septal defect History of open heart surgery (~1969) History of surgery (~2017) Pacemaker Insertion Family History Mother Cancer Hypertension Family/Other Cancer Aunt Sister Cancer Diabetes mellitus, type II Hypertension Grandmother Hypertension Maternal Social History marital status: single smoking status: Never smoker alcohol intake frequency: holiday/special occasion only substance use type: does not use MEDS/ALLERGIES Home Medications and Allergies Home Medications Medication Instructions Recorded Confirmed Type apixaban 5 mg tablet (Eliquis) 5 mg PO BID 05/23/20 02/12/21 History dofetilide 500 mcg capsule 500 mcg PO Q12H 05/23/20 02/12/21 History zolpidem 5 mg tablet 5 mg PO HSP PRN #10 tab 12/17/20 02/12/21 Rx furosemide 20 mg tablet (Lasix) 20 mg PO DAILY #30 tab 01/01/21 02/12/21 Rx potassium chloride 10 mEq 10 meq PO QDAY #30 tab 01/01/21 02/12/21 Rx tablet,extended release (Klor-Con) ondansetron 4 mg disintegrating 4 mg PO Q8H PRN #10 tab 03/21/21 Rx tablet levothyroxine 150 mcg tablet 150 mcg PO QDAY #90 tab 04/22/21 Rx folic acid 1 mg tablet 1 mg PO QDAY #90 tab 05/06/21 Rx Allergies Allergy/AdvReac Type Severity Reaction Status Date / Time Penicillins Allergy Severe Anaphylaxis Verified 06/04/21 12:30 iodine [IODINE] Allergy Mild RASH Verified 02/12/21 13:13 codeine AdvReac Mild ITCHING Verified 02/12/21 13:13 EXAM Constitutional Vitals: Temp Pulse Resp BP Pulse Ox 99.7 F H 70 18 101/72 100 06/04/21 12:00 06/04/21 12:10 06/04/21 12:10 06/04/21 12:00 06/04/21 12:10 DATA Data Completed and Pending Labs: Labs from last 24 hours 06/04/21 06/04/21 06/04/21 11:37 11:37 11:36 WBC RBC Hgb Hct MCV MCH MCHC RDW Plt Count MPV Neut % (Auto) Lymph % (Auto) [place] % (Auto) Eos % (Auto) Baso % (Auto) Lymph # (Auto) [place] # (Auto) Eos # (Auto) Baso # (Auto) Absolute Neutrophils POC PT PT POC INR INR APTT VBG Lactic Acid 1.9 Sodium Pending Potassium Pending Chloride Pending Carbon Dioxide Pending Anion Gap Pending BUN Pending Creatinine Pending POC Creatinine GFR Calculation Pending Glucose Pending Calcium Pending Magnesium Total Bilirubin AST ALT Alkaline Phosphatase Ammonia Total Creatine Kinase 77 Troponin T Total Protein Albumin Globulin Albumin/Globulin Ratio Triglycerides 83 Cholesterol 127 LDL Cholesterol, Calc 42 Non-HDL Cholesterol 58 HDL Cholesterol 69 TSH Prolactin Urine Color Urine Appearance Urine pH Ur Specific [place] Urine Protein Urine Glucose (UA) Urine Ketones Urine Occult Blood Urine Nitrate Urine Bilirubin Urine Urobilinogen Ur Leukocyte Esterase Urine RBC Urine WBC Ur Squamous Epith Cells Urine Bacteria Hyaline Casts Urine Mucus Ur Culture Indicated? Urine Osmolality Ur Random Sodium Salicylates Urine Opiates Screen Ur Opiates Confirm Ur Oxycodone Screen Urine Methadone Screen Ur Methadone Confirm Acetaminophen Ur Barbiturates Screen Ur Barbiturate Confirm Ur Phencyclidine Scrn Urine PCP Confirm Ur Amphetamines Screen U Amphetamines Confirm U Benzodiazepines Scrn Urine Cocaine Screen Urine Cocaine Confirm U Cannabinoids Confirm U Marijuana (THC) Screen Ethyl Alcohol 06/04/21 06/04/21 06/04/21 05:05 05:04 05:04 WBC RBC Hgb Hct MCV MCH MCHC RDW Plt Count MPV Neut % (Auto) Lymph % (Auto) [place] % (Auto) Eos % (Auto) Baso % (Auto) Lymph # (Auto) [place] # (Auto) Eos # (Auto) Baso # (Auto) Absolute Neutrophils POC PT PT POC INR INR APTT VBG Lactic Acid Sodium Potassium Chloride Carbon Dioxide Anion Gap BUN Creatinine POC Creatinine GFR Calculation Glucose Calcium Magnesium Total Bilirubin AST ALT Alkaline Phosphatase Ammonia Total Creatine Kinase Troponin T Total Protein Albumin Globulin Albumin/Globulin Ratio Triglycerides Cholesterol LDL Cholesterol, Calc Non-HDL Cholesterol HDL Cholesterol TSH Prolactin Urine Color Urine Appearance Urine pH Ur Specific [place] Urine Protein Urine Glucose (UA) Urine Ketones Urine Occult Blood Urine Nitrate Urine Bilirubin Urine Urobilinogen Ur Leukocyte Esterase Urine RBC Urine WBC Ur Squamous Epith Cells Urine Bacteria Hyaline Casts Urine Mucus Ur Culture Indicated? Urine Osmolality Pending Ur Random Sodium Pending Salicylates Urine Opiates Screen None detected Ur Opiates Confirm TNP Ur Oxycodone Screen None detected Urine Methadone Screen None detected Ur Methadone Confirm TNP Acetaminophen Ur Barbiturates Screen None detected Ur Barbiturate Confirm TNP Ur Phencyclidine Scrn None detected Urine PCP Confirm TNP Ur Amphetamines Screen None detected U Amphetamines Confirm TNP U Benzodiazepines Scrn None detected Urine Cocaine Screen None detected Urine Cocaine Confirm TNP U Cannabinoids Confirm TNP U Marijuana (THC) Screen None detected Ethyl Alcohol 06/04/21 06/04/21 06/04/21 05:04 04:18 04:18 WBC RBC Hgb Hct MCV MCH MCHC RDW Plt Count MPV Neut % (Auto) Lymph % (Auto) [place] % (Auto) Eos % (Auto) Baso % (Auto) Lymph # (Auto) [place] # (Auto) Eos # (Auto) Baso # (Auto) Absolute Neutrophils POC PT PT POC INR INR APTT VBG Lactic Acid Sodium Potassium Chloride Carbon Dioxide Anion Gap BUN Creatinine POC Creatinine GFR Calculation Glucose Calcium Magnesium 1.6 Total Bilirubin AST ALT Alkaline Phosphatase Ammonia Total Creatine Kinase Troponin T Total Protein Albumin Globulin Albumin/Globulin Ratio Triglycerides Cholesterol LDL Cholesterol, Calc Non-HDL Cholesterol HDL Cholesterol TSH Prolactin 126.1 H Urine Color Kelli Urine Appearance Cloudy A Urine pH 5.0 Ur Specific [place] 1.034 Urine Protein >=500 A Urine Glucose (UA) 50 A Urine Ketones Negative Urine Occult Blood 0.03 Urine Nitrate Negative Urine Bilirubin Negative Urine Urobilinogen Negative Ur Leukocyte Esterase 75 A Urine RBC 13 H Urine WBC 113 H Ur Squamous Epith Cells 5 H Urine Bacteria None Hyaline Casts 28 H Urine Mucus Few A Ur Culture Indicated? No Urine Osmolality Ur Random Sodium Salicylates Urine Opiates Screen Ur Opiates Confirm Ur Oxycodone Screen Urine Methadone Screen Ur Methadone Confirm Acetaminophen Ur Barbiturates Screen Ur Barbiturate Confirm Ur Phencyclidine Scrn Urine PCP Confirm Ur Amphetamines Screen U Amphetamines Confirm U Benzodiazepines Scrn Urine Cocaine Screen Urine Cocaine Confirm U Cannabinoids Confirm U Marijuana (THC) Screen Ethyl Alcohol 06/04/21 06/04/21 06/04/21 04:18 04:18 04:18 WBC RBC Hgb Hct MCV MCH MCHC RDW Plt Count MPV Neut % (Auto) Lymph % (Auto) [place] % (Auto) Eos % (Auto) Baso % (Auto) Lymph # (Auto) [place] # (Auto) Eos # (Auto) Baso # (Auto) Absolute Neutrophils POC PT PT POC INR INR APTT VBG Lactic Acid 3.4 H Sodium Potassium Chloride Carbon Dioxide Anion Gap BUN Creatinine POC Creatinine GFR Calculation Glucose Calcium Magnesium Total Bilirubin AST ALT Alkaline Phosphatase Ammonia Total Creatine Kinase Troponin T Total Protein Albumin Globulin Albumin/Globulin Ratio Triglycerides Cholesterol LDL Cholesterol, Calc Non-HDL Cholesterol HDL Cholesterol TSH 2.82 Prolactin Urine Color Urine Appearance Urine pH Ur Specific [place] Urine Protein Urine Glucose (UA) Urine Ketones Urine Occult Blood Urine Nitrate Urine Bilirubin Urine Urobilinogen Ur Leukocyte Esterase Urine RBC Urine WBC Ur Squamous Epith Cells Urine Bacteria Hyaline Casts Urine Mucus Ur Culture Indicated? Urine Osmolality Ur Random Sodium Salicylates < 0.3 Urine Opiates Screen Ur Opiates Confirm Ur Oxycodone Screen Urine Methadone Screen Ur Methadone Confirm Acetaminophen < 5.0 Ur Barbiturates Screen Ur Barbiturate Confirm Ur Phencyclidine Scrn Urine PCP Confirm Ur Amphetamines Screen U Amphetamines Confirm U Benzodiazepines Scrn Urine Cocaine Screen Urine Cocaine Confirm U Cannabinoids Confirm U Marijuana (THC) Screen Ethyl Alcohol 06/04/21 06/04/21 06/04/21 04:18 04:18 04:18 WBC RBC Hgb Hct MCV MCH MCHC RDW Plt Count MPV Neut % (Auto) Lymph % (Auto) [place] % (Auto) Eos % (Auto) Baso % (Auto) Lymph # (Auto) [place] # (Auto) Eos # (Auto) Baso # (Auto) Absolute Neutrophils POC PT PT POC INR INR APTT VBG Lactic Acid Sodium Potassium Chloride Carbon Dioxide Anion Gap BUN Creatinine POC Creatinine GFR Calculation Glucose Calcium Magnesium Total Bilirubin AST ALT Alkaline Phosphatase Ammonia 59 H Total Creatine Kinase Troponin T < 0.01 Total Protein Albumin Globulin Albumin/Globulin Ratio Triglycerides Cholesterol LDL Cholesterol, Calc Non-HDL Cholesterol HDL Cholesterol TSH Prolactin Urine Color Urine Appearance Urine pH Ur Specific [place] Urine Protein Urine Glucose (UA) Urine Ketones Urine Occult Blood Urine Nitrate Urine Bilirubin Urine Urobilinogen Ur Leukocyte Esterase Urine RBC Urine WBC Ur Squamous Epith Cells Urine Bacteria Hyaline Casts Urine Mucus Ur Culture Indicated? Urine Osmolality Ur Random Sodium Salicylates Urine Opiates Screen Ur Opiates Confirm Ur Oxycodone Screen Urine Methadone Screen Ur Methadone Confirm Acetaminophen Ur Barbiturates Screen Ur Barbiturate Confirm Ur Phencyclidine Scrn Urine PCP Confirm Ur Amphetamines Screen U Amphetamines Confirm U Benzodiazepines Scrn Urine Cocaine Screen Urine Cocaine Confirm U Cannabinoids Confirm U Marijuana (THC) Screen Ethyl Alcohol < 0.010 06/04/21 06/04/21 06/04/21 04:18 04:18 04:18 WBC 11.1 H RBC 3.21 L Hgb 11.2 Hct 32.2 L MCV 100.3 H MCH 34.9 H MCHC 34.8 RDW 13.3 Plt Count 147 MPV 10.0 Neut % (Auto) 84.4 H Lymph % (Auto) 9.6 L [place] % (Auto) 4.8 Eos % (Auto) 0.7 Baso % (Auto) 0.5 Lymph # (Auto) 1.06 L [place] # (Auto) 0.53 Eos # (Auto) 0.08 Baso # (Auto) 0.05 Absolute Neutrophils 9.34 H POC PT 13.8 PT 15.8 H POC INR 1.2 INR 1.2 H APTT 29.8 VBG Lactic Acid Sodium 129 L Potassium 2.7 L* Chloride 88 L Carbon Dioxide 21 L Anion Gap 20.0 H BUN 8 Creatinine 1.0 POC Creatinine 1.0 GFR Calculation 64 Glucose 214 H Calcium 8.1 L Magnesium Total Bilirubin 3.0 H AST 24 ALT 12 Alkaline Phosphatase 72 Ammonia Total Creatine Kinase Troponin T Total Protein 6.8 Albumin 4.0 Globulin 2.8 Albumin/Globulin Ratio 1.4 Triglycerides Cholesterol LDL Cholesterol, Calc Non-HDL Cholesterol HDL Cholesterol TSH Prolactin Urine Color Urine Appearance Urine pH Ur Specific [place] Urine Protein Urine Glucose (UA) Urine Ketones Urine Occult Blood Urine Nitrate Urine Bilirubin Urine Urobilinogen Ur Leukocyte Esterase Urine RBC Urine WBC Ur Squamous Epith Cells Urine Bacteria Hyaline Casts Urine Mucus Ur Culture Indicated? Urine Osmolality Ur Random Sodium Salicylates Urine Opiates Screen Ur Opiates Confirm Ur Oxycodone Screen Urine Methadone Screen Ur Methadone Confirm Acetaminophen Ur Barbiturates Screen Ur Barbiturate Confirm Ur Phencyclidine Scrn Urine PCP Confirm Ur Amphetamines Screen U Amphetamines Confirm U Benzodiazepines Scrn Urine Cocaine Screen Urine Cocaine Confirm U Cannabinoids Confirm U Marijuana (THC) Screen Ethyl Alcohol A/P Time Spent With Patient Time: Total time spent is greater than 50% in coordination of care (as documented) at patient's floor/unit and/or counseling patient: Critical Care Time: Yes Total Critical Care Time: 45 QUALITY Stroke Symptom Onset Unknown: Yes
[2021-06-04 13:12] LABS: Blood Urea Nitrogen 10 mg/dL (6-20); Carbon Dioxide 26 mmol/L (22-30); Chloride 89 mmol/L (96-108); Glomerular Filtration Rate 47; Glucose 146 mg/dL (70-105)
[2021-06-04] MEDS: MIDAZOLAM HCL 50 MG in 0.9 % SODIUM CHLORIDE 90 ML IV SCH ×2 (13:21→21:33)
[2021-06-04] MEDS ORDERED: POTASSIUM CHLORIDE 20 MEQ PACKET PT ONE (13:32)
[2021-06-04] MEDS ORDERED: 0.9 % SODIUM CHLORIDE 10 ML SYRINGE IV SCH (14:00)
[2021-06-04] MEDS: POTASSIUM CHLORIDE 40 MEQ in DEXTROSE 5% IN WATER 500 ML IV PRN (14:15)
[2021-06-04] MEDS: 0.9 % SODIUM CHLORIDE 10 ML SYRINGE IV SCH ×2 (14:16→22:00)
[2021-06-04] MEDS: METOPROLOL TARTRATE 25 MG TABLET PO SCH ×2 (15:35→21:28)
[2021-06-04] MEDS: Dofetilide 250 mcg capsule PO SCH ×2 (16:37→23:29)
[2021-06-04] MEDS: FAMOTIDINE/PF 20 MG/2 ML VIAL IV SCH (21:30)
[2021-06-04] MEDS: CHLORHEXIDINE GLUCONATE 1 ML ORAL.SOL SWABMOUTH SCH (21:31)
[2021-06-04] MEDS: DOCUSATE SODIUM 100 MG CAPSULE PO SCH (23:27)
[2021-06-05] MEDS: PROPOFOL 1,000 MG in PREMIX 1 BAG IV SCH ×2 (04:22→08:08)
[2021-06-05] MEDS: MIDAZOLAM HCL 50 MG in 0.9 % SODIUM CHLORIDE 90 ML IV SCH (04:23)
[2021-06-05] MEDS: 0.9 % SODIUM CHLORIDE 10 ML SYRINGE IV SCH ×3 (05:53→20:01)
[2021-06-05 06:43] LABS: Hematocrit 30.3 % (34.1-44.9); Hemoglobin 10.1 g/dL (11.2-15.7); Mean Cell Volume 100.3 fL (80.0-100.0); Mean Corpuscular HGB Conc 33.3 g/dL (31.0-36.0); Mean Platelet Volume 10.4 fL (7.4-10.4); Platelet Count 114 K/mcL (140-440); RBC 3.02 M/mcL (3.59-5.38); Red Cell Distribution Width 13.7 % (11.5-14.5); WBC 9.9 K/mcL (4.5-11.0)
[2021-06-05 07:20] LABS: ALT/SGPT 69 U/L (<40); AST/SGOT 129 U/L (<32); Albumin 3.3 gm/dL (3.2-5.2); Albumin/Globulin Ratio 1.4 (1.0-2.3); Alkaline Phosphatase 53 U/L (39-117); Bilirubin,Direct 1.5 mg/dL (<0.3); Bilirubin,Total 2.5 mg/dL (0.1-1.0); Blood Urea Nitrogen 8 mg/dL (6-20); Carbon Dioxide 26 mmol/L (22-30); Chloride 97 mmol/L (96-108); Globulin 2.3 gm/dL (2.2-3.7); Glomerular Filtration Rate 84; Glucose 78 mg/dL (70-105); Lactate Dehydrogenase 238 U/L (135-225); Triglycerides 58 mg/dL (<150); Uric Acid 5.9 mg/dL (2.5-8.0)
[2021-06-05] MEDS: LEVOTHYROXINE 150 MCG TABLET PO SCH (07:34)
[2021-06-05] MEDS: INSULIN LISPRO 1 UNIT/0.01 ML UNIT SQ SCH ×4 (07:34→20:39)
[2021-06-05] MEDS: POTASSIUM CHLORIDE 40 MEQ in DEXTROSE 5% IN WATER 500 ML IV PRN (08:08)
--- NOTE | 2021-06-05 08:33 | Internal Med Progress Note ---
SUBJECTIVE Subjective Patient information: Note initiated : 06/05/21 at 8:22 am Service Date, if different from initiated Date: [] Patient: Peg Kitchen a 55 y/o F admitted on 06/04/21 for Unresponsive. Chief Complaint: [] Interval history: History of present illness: Ms. Kitchen is a 55 year old F History obtained from chart as patient is currently intubated and sedated. Per the boyfriend he woke up and heard her gurgling. Then she turned rigid and started shaking and then started vomiting. Per the boyfriend she is never had a seizure before. She recently abruptly stopped drinking alcohol and has a his heavy history of alcohol abuse. Patient was incontinent of both bowel and bladder. He was normal when she went to bed. Case was initially discussed with stroke neurologist who felt patient should be transferred for continuous EEG monitoring but then with program advisor was called at [facility] they felt it was alcohol related withdrawal and that patient could be treated locally. CTA head neck were negative CT head was negative for acute but showed atrophy mild. Per the family she had been feeling unwell for several days but had no specific complaints. In the ED she remained unresponsive with the low [place] Coma Scale and was in tubated for airway protection. Chest x-ray with pulmonary edema. Patient did receive Lasix. Concern for aspiration Prolactin level elevated providing evidence for suspected seizure, also elevated lactate. 06/05 Patient sedated on the vent. Starting sedation vacation to allow for weaning trial. No seizure activity noted overnight. Lactic acidosis improved. Significant hypokalemia and mildly low Phos. Transaminitis. Follow-up chest x- ray on vent and pulmonary edema. Review of systems: Unable to obtain given sedation and ventilated Constitutional Vitals: Vital Signs Temp Pulse Resp BP Pulse Ox 98.2 F 70 16 108/67 99 06/05/21 08:00 06/05/21 08:06 06/05/21 08:06 06/05/21 08:00 06/05/21 08:06 Period Temp Pulse Resp BP Sys/Michel Pulse Ox Last 24 Hr 97.9 F-99.7 F 66-96 - 89-111/57-85 95-100 Intake and Output 06/04/21 06/05/21 06/05/21 21:59 05:59 13:59 Intake Total 811 168 15 Output Total 355 895 Balance 456 -727 15 Weight 79.946 kg Intake & Output: Intake & Output 06/04/21 06/05/21 06/05/21 21:59 05:59 13:59 Intake Total 811 168 15 Output Total 355 895 Balance 456 -727 15 Weight 79.946 kg Intake: IV 691 168 15 Versed 50 mg In Sodium Chloride 64 82 15 0.9% 90 ml @ 3 MG/HR 6 mls/hr IV Q16H [facility] Rx#:[id number] Potassium Chloride 40 Meq In 520 Dextrose 5% in Water 500 ml @ 130 mls/hr IV UD PRN Rx#: [id number] Diprivan 1,000 mg In Premix 1 57 86 Bag @ 5 MCG/KG/MIN 2.245 mls/hr IV .Q24H [facility] Rx#:[id number] Tube Feeding 0 NG Tube Flush 120 Right Nare 120 Output: Urine Catheter Amount 355 895 Other: Urine Appearance Clear Clear Urine Color Dark Kelli Dark Kelli Uretheral (Yeager) Morrow Morrow Exam: General: Sedated on vent, no acute Distress Eyes/N/T: PERRL, Head/Neck: neck supple, CV: RRR, No murmurs, Pulm: Rhonchi/rales b/l much improved today, no wheezing Abd: soft, nontender, +BS x4 Ext: no clubbing/cyanosis/edema Neuro: Sedated on vent but moves all extremities. Moves extremities to touch, peRRL Skin: warm/dry OBJ DATA Labs CBC & Chem 7: 06/05/21 05:08 06/05/21 05:08 Labs: Abnormal Lab Results 06/05/21 06/05/21 06/04/21 05:08 05:08 11:37 WBC RBC 3.02 L Hgb 10.1 L Hct 30.3 L MCV 100.3 H MCH Plt Count 114 L Neut % (Auto) Lymph % (Auto) Lymph # (Auto) Absolute Neutrophils PT INR VBG Lactic Acid Sodium 129 L Potassium 2.6 L* 2.9 L* Chloride 89 L Carbon Dioxide Anion Gap Creatinine 1.3 H Glucose 146 H Calcium 8.0 L 8.0 L Phosphorus 2.0 L Total Bilirubin 2.5 H Direct Bilirubin 1.5 H GGT 68 H AST 129 H ALT 69 H Ammonia Lactate Dehydrogenase 238 H Total Protein 5.6 L Prolactin Urine Appearance Urine Protein Urine Glucose (UA) Ur Leukocyte Esterase Urine RBC Urine WBC Ur Squamous Epith Cells Hyaline Casts Urine Mucus 06/04/21 06/04/21 06/04/21 05:04 04:18 04:18 WBC RBC Hgb Hct MCV MCH Plt Count Neut % (Auto) Lymph % (Auto) Lymph # (Auto) Absolute Neutrophils PT INR VBG Lactic Acid 3.4 H Sodium Potassium Chloride Carbon Dioxide Anion Gap Creatinine Glucose Calcium Phosphorus Total Bilirubin Direct Bilirubin GGT AST ALT Ammonia Lactate Dehydrogenase Total Protein Prolactin 126.1 H Urine Appearance Cloudy A Urine Protein >=500 A Urine Glucose (UA) 50 A Ur Leukocyte Esterase 75 A Urine RBC 13 H Urine WBC 113 H Ur Squamous Epith Cells 5 H Hyaline Casts 28 H Urine Mucus Few A 06/04/21 06/04/21 06/04/21 04:18 04:18 04:18 WBC RBC Hgb Hct MCV MCH Plt Count Neut % (Auto) Lymph % (Auto) Lymph # (Auto) Absolute Neutrophils PT 15.8 H INR 1.2 H VBG Lactic Acid Sodium 129 L Potassium 2.7 L* Chloride 88 L Carbon Dioxide 21 L Anion Gap 20.0 H Creatinine Glucose 214 H Calcium 8.1 L Phosphorus Total Bilirubin 3.0 H Direct Bilirubin GGT AST ALT Ammonia 59 H Lactate Dehydrogenase Total Protein Prolactin Urine Appearance Urine Protein Urine Glucose (UA) Ur Leukocyte Esterase Urine RBC Urine WBC Ur Squamous Epith Cells Hyaline Casts Urine Mucus 06/04/21 04:18 WBC 11.1 H RBC 3.21 L Hgb Hct 32.2 L MCV 100.3 H MCH 34.9 H Plt Count Neut % (Auto) 84.4 H Lymph % (Auto) 9.6 L Lymph # (Auto) 1.06 L Absolute Neutrophils 9.34 H PT INR VBG Lactic Acid Sodium Potassium Chloride Carbon Dioxide Anion Gap Creatinine Glucose Calcium Phosphorus Total Bilirubin Direct Bilirubin GGT AST ALT Ammonia Lactate Dehydrogenase Total Protein Prolactin Urine Appearance Urine Protein Urine Glucose (UA) Ur Leukocyte Esterase Urine RBC Urine WBC Ur Squamous Epith Cells Hyaline Casts Urine Mucus Meds: Medications Acetaminophen (Acetaminophen 160 Mg/5 Ml Oral.Chayito) 650 mg PT Q6HP PRN; Protocol PRN Reason: Per Pain Protocol/Fever > 101 Albuterol/Ipratropium (Ipratropium/Albuterol 3 Ml Ampul.Neb) 3 ml NEB Q4HP PRN PRN Reason: Shortness Of Breath Chlordiazepoxide HCl (Chlordiazepoxide 25 Mg Capsule) 50 mg PO Q4HP PRN PRN Reason: Alcohol Withdrawal Chlorhexidine Gluconate (Chlorhexidine Gluconate 1 Ml Oral.Chayito) 15 ml SWABMOUTH BID [facility] Last Admin: 06/04/21 21:31 Dose: 15 ml Documented by: Clonidine HCl (Clonidine Hcl 0.1 Mg Tablet) 0.1 mg PO Q4HP PRN PRN Reason: ALC Dextrose (Dextrose 50% 50 Ml Vial) 0 ml IV UD PRN PRN Reason: Per Sliding Scale Diagnostic Test (Pha) (Accu-Chek 1 Each Strip) 1 each FS ACHS [facility] Last Admin: 06/05/21 07:34 Dose: 1 each Documented by: Docusate Sodium (Docusate Sodium 100 Mg Capsule) 100 mg PO BID [facility] Last Admin: 06/04/21 23:27 Dose: Not Given Documented by: Famotidine (Famotidine/Pf 20 Mg/2 Ml Vial) 20 mg IV Q12 [facility] Last Admin: 06/04/21 21:30 Dose: 20 mg Documented by: Folic Acid (Folic Acid 1 Mg Tablet) 1 mg PO DAILY [facility] Glucose (Dextrose 31 Gm Oral.Susp) 15 gm PO PRN PRN PRN Reason: Hypoglycemia Sodium Chloride (Sodium Chloride 0.9%) 1,000 mls @ 0 mls/hr IV .Q0M [facility] Propofol 1,000 mg/ Premix 100 mls @ 2.245 mls/hr IV .Q24H [facility]; Protocol Last Admin: 06/05/21 08:08 Dose: Not Given Documented by: Potassium Chloride 40 meq/ (Dextrose) 520 mls @ 130 mls/hr IV UD PRN PRN Reason: K+ < 3.0 Last Admin: 06/05/21 08:08 Dose: 130 mls/hr Documented by: Magnesium Sulfate (Magnesium Sulfate) 2 gm in 50 mls @ 25 mls/hr IV UD PRN PRN Reason: Magnesium </= 1.6 Last Infusion: 06/04/21 17:51 Dose: Infused Documented by: Thiamine HCl 100 mg/ Sodium (Chloride) 51 mls @ 50 mls/hr IV DAILY [facility] Last Infusion: 06/04/21 13:22 Dose: Infused Documented by: Midazolam HCl 50 mg/ Sodium (Chloride) 100 mls @ 6 mls/hr IV Q16H [facility]; Protocol Last Titration: 06/05/21 06:15 Dose: 0 mg/hr, 0 mls/hr Documented by: Insulin Human Lispro (Insulin Lispro 1 Unit/0.01 Ml Unit) 0 unit SQ ACHS [facility]; Protocol Last Admin: 06/05/21 07:34 Dose: Not Given Documented by: Iron Carb/Multivit/[place]/Folic Acid (Multivit,Ther Iron,Ca,Fa & Min 1 Tablet) 1 tab PO DAILY [facility] Levothyroxine Sodium (Levothyroxine 150 Mcg Tablet) 150 mcg PO QAMAC [facility] Last Admin: 06/05/21 07:34 Dose: 150 mcg Documented by: Lorazepam (Lorazepam 2 Mg/Ml Vial) 0 mg IV PRN PRN; Protocol PRN Reason: Alcohol Withdrawal Last Admin: 06/04/21 10:43 Dose: 1 mg Documented by: Metoclopramide HCl (Metoclopramide 10 Mg/2 Ml Vial) 10 mg IV Q6HP PRN PRN Reason: Nausea Metoprolol Tartrate (Metoprolol Tartrate 5 Mg/5 Ml Vial) 5 mg IV Q2HP PRN PRN Reason: Tachyarrhythmias HR>110 Metoprolol Tartrate (Metoprolol Tartrate 25 Mg Tablet) 12.5 mg PO BID [facility] Last Admin: 06/04/21 21:28 Dose: 12.5 mg Documented by: Morphine Sulfate (Morphine 4 Mg/Ml Vial) 4 mg IV Q2HP PRN; Protocol PRN Reason: Per Pain Protocol Ondansetron HCl (Ondansetron 4 Mg/2 Ml Vial) 4 mg IV Q4-6HP PRN PRN Reason: Nausea And Vomiting Dofetilide 250 Mcg (Capsule) 1 dose PO BID [facility] Last Admin: 06/04/21 23:29 Dose: Not Given Documented by: Potassium Chloride (Potassium Chloride 20 Meq Tablet) 20 meq PO UD PRN PRN Reason: K+ < 3.0 Potassium Chloride (Potassium Chloride 20 Meq Tablet) 40 meq PO UD PRN PRN Reason: K+ = 3-3.5 Sodium Chloride (0.9 % Sodium Chloride 10 Ml Syringe) 10 ml IV Q8 [facility] Last Admin: 06/05/21 05:53 Dose: 10 ml Documented by: A/P Narrative A/P Narrative: A: *Likely alcohol withdrawal seizure (witnessed by bf) compromising airway: *Lactic acidosis: 2/2 above, resolved *Mechanical ventilation placed d/t inability to protect airway: *Encephalopathy: 2/2 above -UDS neg, no acute CT brain findings *Alcohol abuse: Recently quit abruptly likely causing above *h/o Low BP per significant other: stable here and normal cortisol *Hyponatremia: resolved *Hypokalemia: *Likely Aspiration Pneumonitis: monitor for PNA/abx need *acute on chronic systolic(45-50%)/diastolic(I) CHF & Right Heart Failure w/Pulm Edema: -pt has AICD/PPM *h/o Afib: On Eliquis/dofetilide *Transaminitis: 2/2 above *UTI( ): repeat after dirty specimen *SYED on CKD II: resolved *Macrocytic anemia, chronic: *h/o CVA: Incidentally found on CT brain. lipid panel quite good, ASA started *Hypothyroidism: tsh wnl P: -Vent management, sedation vacation and weaning trials in a.m. -prn Lasix, monitor I/O's -CIWA, vitamins, prn benzo (currently on versed gtt) -Replete electrolytes -repeat ua specimen -start BB/dofetilide -PT/OT when available -Referral to see Dr. Irving outpt -ppx: eliquis / H2 Time Spent With Patient Time: Total time spent is greater than 50% in coordination of care (as documented) at patient's floor/unit and/or counseling patient: Total Critical Care Time: 40 QUALITY Stroke Symptom Onset Unknown: Yes
[2021-06-05] MEDS: THIAMINE 100 MG in 0.9 % SODIUM CHLORIDE 50 ML IV SCH (10:28)
--- NOTE | 2021-06-05 10:33 | XRay Report ---
CLINICAL INFORMATION: Follow-up CHF COMPARISON: 06/04/2021 TECHNIQUE: Portable FINDINGS: Marked cardiomegaly is unchanged. Mediastinum is unremarkable. Lines and tubes in stable satisfactory position. The pulmonary vessels have decreased in caliber and only mildly distended. Moderate edema or infiltrate in the bases has progressed, however. Small pleural pleural effusions noted. IMPRESSION: Moderate CHF-improving Moderate bibasilar infiltrates with consolidation in the retrocardiac region worsening. Consider superimposed infection or aspiration. Interpreted and Authenticated by: Branden Alicia 06/05/21
[2021-06-05] MEDS: CHLORHEXIDINE GLUCONATE 1 ML ORAL.SOL SWABMOUTH SCH ×2 (11:32→20:01)
[2021-06-05] MEDS: NEUTRA PHOS 1 PACKET PO SCH ×2 (11:58→20:00)
[2021-06-05] MEDS: METOPROLOL TARTRATE 25 MG TABLET PO SCH ×2 (11:58→20:01)
[2021-06-05] MEDS: ASPIRIN 81 MG TAB.CHEW PO SCH (11:58)
[2021-06-05] MEDS: Dofetilide 250 mcg capsule PO SCH (11:59)
[2021-06-05] MEDS ORDERED: cefTRIAXone 1 GM VIAL IV ONE (12:15)
[2021-06-05] MEDS: FAMOTIDINE/PF 20 MG/2 ML VIAL IV SCH ×2 (12:31→20:01)
[2021-06-05] MEDS: MULTIVIT,THER IRON,CA,FA & MIN 1 TABLET PO SCH (12:32)
[2021-06-05] MEDS: FOLIC ACID 1 MG TABLET PO SCH (12:32)
[2021-06-05] MEDS: DOCUSATE SODIUM 100 MG CAPSULE PO SCH ×2 (12:32→20:01)
[2021-06-05] MEDS: LORazepam 2 MG/ML VIAL IV PRN ×3 (13:08→23:19)
[2021-06-05] MEDS ORDERED: AMIODARONE 150 MG in DEXTROSE 5% IN WATER 50 ML IV ONE (14:00)
[2021-06-05] MEDS ORDERED: ENOXAPARIN 40 MG/0.4 ML SYRINGE SQ SCH (14:05)
[2021-06-05] MEDS ORDERED: AMIODARONE 360 MG/200 ML BAG IV ONE (14:19)
[2021-06-05] MEDS ORDERED: LORazepam 2 MG/ML VIAL ONE (14:22)
[2021-06-05] MEDS: AMIODARONE 360 MG in PREMIX 1 BAG IV SCH ×3 (14:23→20:40)
--- NOTE | 2021-06-05 14:34 | Event Note ---
Event Note Event Note: Patient began to have short runs of V. tach, patient was asymptomatic. During this time we placed pads in case of any deterioration and ordered to 150mg of IV amiodarone. Eventually however her runs became more prolonged and she lost consciousness and was immediately shocked with 200 J and CPR immediately started but patient awoke after 2 compressions. Patient awake and following commands although drowsy. Amiodarone drip currently in place. We will discuss case with cardiology.
[2021-06-05 15:19] LABS: Blood Urea Nitrogen 8 mg/dL (6-20); Calcium 8.1 mg/dL (8.6-10.4); Carbon Dioxide 22 mmol/L (22-30); Chloride 98 mmol/L (96-108); Glomerular Filtration Rate 84; Glucose 125 mg/dL (70-105)
[2021-06-05] MEDS ORDERED: MIDAZOLAM HCL 50 MG in 0.9 % SODIUM CHLORIDE 90 ML IV PRN (15:30)
[2021-06-05] MEDS: cefTRIAXone 2 GM in DEXTROSE 5% IN WATER 50 ML IV SCH (15:34)
[2021-06-05] MEDS ORDERED: ENOXAPARIN 40 MG/0.4 ML SYRINGE SQ ONE (16:07)
[2021-06-05 16:54] LABS: Appearance,Urine TURBID (Clear); Bacteria,Urine MOD /hpf (0); Bilirubin,Urine Negative (Negative); Color,Urine Yellow; Culture Indicated,Urine yes; Glucose,Urine (UA) Negative (Negative); Ketones,Urine Negative (Negative); Leukocyte Esterase,Urine 500 /uL (Negative); Mucus,Urine MANY /hpf; Nitrate,Urine Negative (Negative); Protein,Urine 100 mg/dL (Negative); Urine Blood 0.03 mg/dL (Negative); Urine RBC 13 /hpf (0-3); Urine Squamous Epithelial Cell 1 /hpf (0-4); Urine WBC > 182 /hpf (0-4); Urobilinogen,Urine Negative
[2021-06-05] MEDS ORDERED: cefTRIAXone 1 GM VIAL IV SCH (17:15)
[2021-06-05] MEDS: chlordiazePOXIDE 25 MG CAPSULE PO PRN (20:04)
[2021-06-06] MEDS: 0.9 % SODIUM CHLORIDE 10 ML SYRINGE IV SCH ×2 (05:20→22:38)
--- NOTE | 2021-06-06 07:19 | EKG ---
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
[2021-06-06 07:31] LABS: ALT/SGPT 419 U/L (<40); AST/SGOT 913 U/L (<32); Albumin 3.8 gm/dL (3.2-5.2); Albumin/Globulin Ratio 1.3 (1.0-2.3); Alkaline Phosphatase 63 U/L (39-117); Bilirubin,Direct 1.2 mg/dL (<0.3); Blood Urea Nitrogen 13 mg/dL (6-20); Calcium 8.1 mg/dL (8.6-10.4); Carbon Dioxide 21 mmol/L (22-30); Chloride 95 mmol/L (96-108); Globulin 2.9 gm/dL (2.2-3.7); Glomerular Filtration Rate 51; Glucose 108 mg/dL (70-105); Lactate Dehydrogenase 963 U/L (135-225); Phosphorous 4.3 mg/dL (2.5-4.5); Triglycerides 69 mg/dL (<150); Uric Acid 7.2 mg/dL (2.5-8.0)
[2021-06-06] MEDS ORDERED: POTASSIUM CHLORIDE 20 MEQ TABLET PO ONE (07:48)
[2021-06-06] MEDS: INSULIN LISPRO 1 UNIT/0.01 ML UNIT SQ SCH ×4 (07:53→20:08)
--- NOTE | 2021-06-06 07:53 | Internal Med Progress Note ---
SUBJECTIVE Subjective Patient information: Note initiated : 06/06/21 at 7:40 am Service Date, if different from initiated Date: [] Patient: Peg Kitchen a 55 y/o F admitted on 06/04/21 for Unresponsive. Chief Complaint: [] Interval history: History of present illness: Ms. Kitchen is a 55 year old F History obtained from chart as patient is currently intubated and sedated. Per the boyfriend he woke up and heard her gurgling. Then she turned rigid and started shaking and then started vomiting. Per the boyfriend she is never had a seizure before. She recently abruptly stopped drinking alcohol and has a his heavy history of alcohol abuse. Patient was incontinent of both bowel and bladder. He was normal when she went to bed. Case was initially discussed with stroke neurologist who felt patient should be transferred for continuous EEG monitoring but then with assembler seat was called at [facility] they felt it was alcohol related withdrawal and that patient could be treated locally. CTA head neck were negative CT head was negative for acute but showed atrophy mild. Per the family she had been feeling unwell for several days but had no specific complaints. In the ED she remained unresponsive with the low [place] Coma Scale and was in tubated for airway protection. Chest x-ray with pulmonary edema. Patient did receive Lasix. Concern for aspiration Prolactin level elevated providing evidence for suspected seizure, also elevated lactate. 06/05 Patient sedated on the vent. Starting sedation vacation to allow for weaning trial. No seizure activity noted overnight. Lactic acidosis improved. Significant hypokalemia and mildly low Phos. Transaminitis. Follow-up chest x- ray on vent and pulmonary edema. In the early afternoon patient began to have repeated short runs of V. tach, patient was asymptomatic. During this time we placed pads in case of any deterioration and ordered to 150mg of IV amiodarone. Eventually however her runs became more prolonged and she lost consciousness and was immediately shocked with 200 J and CPR immediately started but patient awoke after 2 compressions. Patient awake and following commands although drowsy. Amiodarone drip currently in place. We will discuss case with cardiology. I Spoke with her simulation software engineer Dr. Madera who felt the Vtach was likely dofetilide related. Patient also reports that she has felt "off" since starting that medication. He does not feel that she needs an AICD upgrade at this point and does not feel that she needs transfer at this point. That the dofetilide needs to clear out of her body. We will keep amiodarone drip for now. He also recommended increasing her pacemaker settings to heart rate of 80. She has a [employer] pacer and will reach out to the sales representative electric service. If she has another episode that requires defibrillation we will then transfer up to [place], per discussion with Dr. Madera. 06/06 No overnight event. Patient sales representative electric service came and adjusted heart rate to 80. Patient has elevated CIWA scores requiring Ativan, patient drowsy but responsive. No new pains or complaints, no coughing or shortness of breath. Review of Systems: denies headache/fever/chills/nausea/vomiting/chest or abdominal pain/cough/dyspnea/diarrhea. Otherwise see above. Constitutional Vitals: Vital Signs Temp Pulse Resp BP Pulse Ox 99.2 F H 71 27 H 116/79 97 06/06/21 04:00 06/06/21 07:00 06/06/21 07:00 06/06/21 07:00 06/06/21 07:00 Period Temp Pulse Resp BP Sys/Michel Pulse Ox Last 24 Hr 96.9 F-99.2 F 27-110 16-36 95-145/61-117 89-100 Intake and Output 06/05/21 06/06/21 06/06/21 21:59 05:59 13:59 Intake Total 771 520 Output Total 600 200 Balance 171 320 Weight 80.014 kg Intake & Output: Intake & Output 06/05/21 06/06/21 06/06/21 21:59 05:59 13:59 Intake Total 771 520 Output Total 600 200 Balance 171 320 Weight 80.014 kg Intake: IV 291 Cordarone 150 mg In Dextrose 5% 53 in Water 50 ml @ 300 mls/hr IV ONCE ONE Rx#:[id number] Nexterone 360 mg In Premix 1 188 Bag @ 1 MG/MIN 33.333 mls/hr IV .Q6H [facility] Rx#:[id number] Diprivan 1,000 mg In Premix 1 0 Bag @ 5 MCG/KG/MIN 2.245 mls/hr IV .Q24H [facility] Rx#:[id number] Rocephin 2 gm In Dextrose 5% in 50 Water 50 ml @ 100 mls/hr IV Q24H [facility] Rx#:[id number] Oral 480 520 Output: Urine Catheter Amount 600 200 Other: Urine Appearance Cloudy Clear Uretheral (Yeager) Clear Clear Urine Color Light Kelli Dark Kelli Uretheral (Yeager) Dark Kelli Dark Kelli Urine Odor Normal Stool Size Small Small Stool Color Brown Brown Stool Consistency Liquid Loose Loose # Bowel Movements 1 # of times incontinent of 1 1 Bowels Exam: General: Drowsy, no acute Distress Eyes/N/T: EOMI Head/Neck: neck supple, CV: RRR (paced), No murmurs, Pulm: minimal occasional course sounds right, no wheezing Abd: soft, nontender, +BS x4 Ext: no clubbing/cyanosis, trace b/l LE edema Neuro: Drowsy but awakens, follows commands. No focal deficits. Moves all extremities Skin: warm/dry OBJ DATA Labs CBC & Chem 7: 06/05/21 05:08 06/06/21 05:24 Labs: Abnormal Lab Results 06/06/21 06/05/21 06/05/21 05:24 15:06 14:23 WBC RBC Hgb Hct MCV MCH Plt Count Neut % (Auto) Lymph % (Auto) Lymph # (Auto) Absolute Neutrophils PT INR VBG Lactic Acid Sodium 132 L Potassium Chloride 95 L Carbon Dioxide 21 L Anion Gap Creatinine 1.2 H Glucose 108 H 125 H Calcium 8.1 L 8.1 L Phosphorus Total Bilirubin 2.0 H Direct Bilirubin 1.2 H GGT 72 H AST 913 H ALT 419 H Ammonia Lactate Dehydrogenase 963 H NT-Pro-B Natriuret Pep Total Protein Folate Prolactin Urine Appearance Turbid A Urine Protein 100 A Urine Glucose (UA) Ur Leukocyte Esterase 500 A Urine RBC 13 H Urine WBC > 182 H Ur Squamous Epith Cells Urine Bacteria Mod A Hyaline Casts Urine Mucus Many A 06/05/21 06/05/21 06/05/21 08:37 08:37 05:08 WBC RBC Hgb Hct MCV MCH Plt Count Neut % (Auto) Lymph % (Auto) Lymph # (Auto) Absolute Neutrophils PT INR VBG Lactic Acid Sodium Potassium 2.6 L* Chloride Carbon Dioxide Anion Gap Creatinine Glucose Calcium 8.0 L Phosphorus 2.0 L Total Bilirubin 2.5 H Direct Bilirubin 1.5 H GGT 68 H AST 129 H ALT 69 H Ammonia Lactate Dehydrogenase 238 H NT-Pro-B Natriuret Pep 7274.0 H Total Protein 5.6 L Folate > 20.0 H Prolactin Urine Appearance Urine Protein Urine Glucose (UA) Ur Leukocyte Esterase Urine RBC Urine WBC Ur Squamous Epith Cells Urine Bacteria Hyaline Casts Urine Mucus 06/05/21 06/04/21 06/04/21 05:08 11:37 05:04 WBC RBC 3.02 L Hgb 10.1 L Hct 30.3 L MCV 100.3 H MCH Plt Count 114 L Neut % (Auto) Lymph % (Auto) Lymph # (Auto) Absolute Neutrophils PT INR VBG Lactic Acid Sodium 129 L Potassium 2.9 L* Chloride 89 L Carbon Dioxide Anion Gap Creatinine 1.3 H Glucose 146 H Calcium 8.0 L Phosphorus Total Bilirubin Direct Bilirubin GGT AST ALT Ammonia Lactate Dehydrogenase NT-Pro-B Natriuret Pep Total Protein Folate Prolactin Urine Appearance Cloudy A Urine Protein >=500 A Urine Glucose (UA) 50 A Ur Leukocyte Esterase 75 A Urine RBC 13 H Urine WBC 113 H Ur Squamous Epith Cells 5 H Urine Bacteria Hyaline Casts 28 H Urine Mucus Few A 06/04/21 06/04/21 06/04/21 04:18 04:18 04:18 WBC RBC Hgb Hct MCV MCH Plt Count Neut % (Auto) Lymph % (Auto) Lymph # (Auto) Absolute Neutrophils PT INR VBG Lactic Acid 3.4 H Sodium Potassium Chloride Carbon Dioxide Anion Gap Creatinine Glucose Calcium Phosphorus Total Bilirubin Direct Bilirubin GGT AST ALT Ammonia 59 H Lactate Dehydrogenase NT-Pro-B Natriuret Pep Total Protein Folate Prolactin 126.1 H Urine Appearance Urine Protein Urine Glucose (UA) Ur Leukocyte Esterase Urine RBC Urine WBC Ur Squamous Epith Cells Urine Bacteria Hyaline Casts Urine Mucus 06/04/21 06/04/21 06/04/21 04:18 04:18 04:18 WBC 11.1 H RBC 3.21 L Hgb Hct 32.2 L MCV 100.3 H MCH 34.9 H Plt Count Neut % (Auto) 84.4 H Lymph % (Auto) 9.6 L Lymph # (Auto) 1.06 L Absolute Neutrophils 9.34 H PT 15.8 H INR 1.2 H VBG Lactic Acid Sodium 129 L Potassium 2.7 L* Chloride 88 L Carbon Dioxide 21 L Anion Gap 20.0 H Creatinine Glucose 214 H Calcium 8.1 L Phosphorus Total Bilirubin 3.0 H Direct Bilirubin GGT AST ALT Ammonia Lactate Dehydrogenase NT-Pro-B Natriuret Pep Total Protein Folate Prolactin Urine Appearance Urine Protein Urine Glucose (UA) Ur Leukocyte Esterase Urine RBC Urine WBC Ur Squamous Epith Cells Urine Bacteria Hyaline Casts Urine Mucus Meds: Medications Acetaminophen (Acetaminophen 160 Mg/5 Ml Oral.[place]) 650 mg PT Q6HP PRN; Protocol PRN Reason: Per Pain Protocol/Fever > 101 Albuterol/Ipratropium (Ipratropium/Albuterol 3 Ml Ampul.Neb) 3 ml NEB Q4HP PRN PRN Reason: Shortness Of Breath Aspirin (Aspirin 81 Mg Tab.Chew) 81 mg PO DAILY [facility] Last Admin: 06/05/21 11:58 Dose: 81 mg Documented by: Chlordiazepoxide HCl (Chlordiazepoxide 25 Mg Capsule) 50 mg PO Q4HP PRN PRN Reason: Alcohol Withdrawal Last Admin: 06/05/21 20:04 Dose: 50 mg Documented by: Chlorhexidine Gluconate (Chlorhexidine Gluconate 1 Ml Oral.[place]) 15 ml SWABMOUTH BID [facility] Last Admin: 06/05/21 20:01 Dose: 15 ml Documented by: Clonidine HCl (Clonidine Hcl 0.1 Mg Tablet) 0.1 mg PO Q4HP PRN PRN Reason: ALC Dextrose (Dextrose 50% 50 Ml Vial) 0 ml IV UD PRN PRN Reason: Per Sliding Scale Diagnostic Test (Pha) (Accu-Chek 1 Each Strip) 1 each FS ACHS [facility] Last Admin: 06/06/21 07:33 Dose: 1 each Documented by: Docusate Sodium (Docusate Sodium 100 Mg Capsule) 100 mg PO BID [facility] Last Admin: 06/05/21 20:01 Dose: Not Given Documented by: Famotidine (Famotidine/Pf 20 Mg/2 Ml Vial) 20 mg IV Q12 [facility] Last Admin: 06/05/21 20:01 Dose: 20 mg Documented by: Folic Acid (Folic Acid 1 Mg Tablet) 1 mg PO DAILY [facility] Last Admin: 06/05/21 12:32 Dose: 1 mg Documented by: Glucose (Dextrose 31 Gm Oral.Susp) 15 gm PO PRN PRN PRN Reason: Hypoglycemia Sodium Chloride (Sodium Chloride 0.9%) 1,000 mls @ 0 mls/hr IV .Q0M [facility] Potassium Chloride 40 meq/ (Dextrose) 520 mls @ 130 mls/hr IV UD PRN PRN Reason: K+ < 3.0 Last Infusion: 06/05/21 12:08 Dose: Infused Documented by: Magnesium Sulfate (Magnesium Sulfate) 2 gm in 50 mls @ 25 mls/hr IV UD PRN PRN Reason: Magnesium </= 1.6 Last Infusion: 06/04/21 17:51 Dose: Infused Documented by: Thiamine HCl 100 mg/ Sodium (Chloride) 51 mls @ 50 mls/hr IV DAILY [facility] Last Infusion: 06/05/21 11:30 Dose: Infused Documented by: Ceftriaxone Sodium 2 gm/ (Dextrose) 50 mls @ 100 mls/hr IV Q24H [facility]; Protocol Last Infusion: 06/05/21 16:25 Dose: Infused Documented by: AMIODARONE 360 mg/ Premix 200 mls @ 16.667 mls/hr IV .Q12H [facility] Stop: 06/06/21 14:15 Last Admin: 06/05/21 20:01 Dose: 0.5 mg/min, 16.667 mls/hr Documented by: Insulin Human Lispro (Insulin Lispro 1 Unit/0.01 Ml Unit) 0 unit SQ ACHS [facility]; Protocol Last Admin: 06/05/21 20:39 Dose: Not Given Documented by: Iron Carb/Multivit/[place]/Folic Acid (Multivit,Ther Iron,Ca,Fa & Min 1 Tablet) 1 tab PO DAILY [facility] Last Admin: 06/05/21 12:32 Dose: 1 tab Documented by: Levothyroxine Sodium (Levothyroxine 150 Mcg Tablet) 150 mcg PO QAMAC [facility] Last Admin: 06/05/21 07:34 Dose: 150 mcg Documented by: Lorazepam (Lorazepam 2 Mg/Ml Vial) 0 mg IV PRN PRN; Protocol PRN Reason: Alcohol Withdrawal Last Admin: 06/05/21 23:19 Dose: 1 mg Documented by: Metoclopramide HCl (Metoclopramide 10 Mg/2 Ml Vial) 10 mg IV Q6HP PRN PRN Reason: Nausea Metoprolol Tartrate (Metoprolol Tartrate 5 Mg/5 Ml Vial) 5 mg IV Q2HP PRN PRN Reason: Tachyarrhythmias HR>110 Metoprolol Tartrate (Metoprolol Tartrate 25 Mg Tablet) 12.5 mg PO BID [facility] Last Admin: 06/05/21 20:01 Dose: 12.5 mg Documented by: Morphine Sulfate (Morphine 4 Mg/Ml Vial) 4 mg IV Q2HP PRN; Protocol PRN Reason: Per Pain Protocol Ondansetron HCl (Ondansetron 4 Mg/2 Ml Vial) 4 mg IV Q4-6HP PRN PRN Reason: Nausea And Vomiting Potassium Chloride (Potassium Chloride 20 Meq Tablet) 20 meq PO UD PRN PRN Reason: K+ < 3.0 Potassium Chloride (Potassium Chloride 20 Meq Tablet) 40 meq PO UD PRN PRN Reason: K+ = 3-3.5 Last Admin: 06/05/21 07:45 Dose: 40 meq Documented by: Potassium/Phosphorus/Sodium (Neutra Phos 1 Packet) 2 packet PO BID [facility] Stop: 06/06/21 09:01 Last Admin: 06/05/21 20:00 Dose: 2 packet Documented by: Rivaroxaban (Rivaroxaban 20 Mg Tablet) 20 mg PO QDAY [facility] Sodium Chloride (0.9 % Sodium Chloride 10 Ml Syringe) 10 ml IV Q8 [facility] Last Admin: 06/06/21 05:20 Dose: 10 ml Documented by: A/P Narrative A/P Narrative: A: *Likely alcohol withdrawal seizure (witnessed by bf) compromising airway: *Lactic acidosis: 2/2 above, resolved *Mechanical ventilation placed d/t inability to protect airway: -extubated early on 06/05 *Vtach-sustained, requiring Defibrillation/brief cpr (06/05): -Cardio felt it was related to dofetilide *Encephalopathy: 2/2 above, improved -UDS neg, no acute CT brain findings *Alcohol abuse: Recently quit abruptly likely causing above *h/o Low BP per significant other: stable here and normal cortisol *Hyponatremia/Hypokalemia: improved *Aspiration Pneumonitis/PNA (Haemophilus spp): *acute on chronic systolic(45-50%)/diastolic(I) CHF & Right Heart Failure w/Pulm Edema: -pt has PPM -improving *h/o Afib: On coreg/dofetilide(stopped).and Rivaroxaban *UTI ( ): *Transaminitis: likely ischemic event from pulseless VTach requiring CPR *UTI( ): repeat after dirty specimen *SYED on CKD II: resolved *Macrocytic anemia, chronic: *h/o CVA: Incidentally found on CT brain. lipid panel quite good, on xarelto *Hypothyroidism: tsh wnl P: -case d/w Dr. Madera ([facility]) > no need to transfer for AICD upgrade at this point, d/c'd dofetilide, Pacer Rep increased HR to 80, let amio gtt finish. If she has another event requiring defibrillation then transfer to [facility]. -prn Lasix, monitor I/O's -CIWA, vitamins, prn benzo -Replete electrolytes -Rocephin pending SC/UC -f/u LFT's -liver u/s for eval liver dz from etoh -IS -PT/OT when available -Referral to see Dr. Irving outpt -ppx: Xaralto / H2 Time Spent With Patient Time: Total time spent is greater than 50% in coordination of care (as documented) at patient's floor/unit and/or counseling patient: Total time spent with greater than 50% in coordination of care (as documented) at patient's floor/unit and/or counseling patient:: 35 - 50 minutes QUALITY Stroke Symptom Onset Unknown: Yes
[2021-06-06] MEDS: DOCUSATE SODIUM 100 MG CAPSULE PO SCH (07:54)
[2021-06-06] MEDS: AMIODARONE 360 MG in PREMIX 1 BAG IV SCH (08:06)
[2021-06-06] MEDS: FAMOTIDINE/PF 20 MG/2 ML VIAL IV SCH (08:12)
[2021-06-06] MEDS: NEUTRA PHOS 1 PACKET PO SCH (08:22)
[2021-06-06] MEDS: FOLIC ACID 1 MG TABLET PO SCH (08:22)
[2021-06-06] MEDS: METOPROLOL TARTRATE 25 MG TABLET PO SCH ×2 (08:23→20:08)
[2021-06-06] MEDS: MULTIVIT,THER IRON,CA,FA & MIN 1 TABLET PO SCH (08:23)
[2021-06-06] MEDS: ASPIRIN 81 MG TAB.CHEW PO SCH (08:23)
[2021-06-06] MEDS: RIVAROXABAN 20 MG TABLET PO SCH (08:23)
[2021-06-06] MEDS: LORazepam 2 MG/ML VIAL IV PRN ×2 (08:45→13:37)
[2021-06-06] MEDS ORDERED: FUROSEMIDE 40 MG/4 ML VIAL IV ONE ×2 (09:23→16:00)
--- NOTE | 2021-06-06 09:30 | XRay Report ---
CLINICAL INFORMATION: Fall CHF COMPARISON: 06/05/2021. TECHNIQUE: Portable FINDINGS: Marked cardiomegaly is unchanged. Mediastinum is unremarkable. Endotracheal tube is now out.. Pulmonary vasculature remains mildly distended. Bronchovascular edema has improved. Bibasilar infiltrates also show improved aeration with moderate residual. Small bilateral pleural effusions noted IMPRESSION: Moderate CHF-improving Improving bibasilar infiltrates with mild/moderate residual. Small bilateral pleural effusions Interpreted and Authenticated by: Branden Alicia 06/06/21
[2021-06-06] MEDS: LEVOTHYROXINE 150 MCG TABLET PO SCH (09:37)
[2021-06-06] MEDS: THIAMINE 100 MG in 0.9 % SODIUM CHLORIDE 50 ML IV SCH (09:45)
[2021-06-06] MEDS: cefTRIAXone 2 GM in DEXTROSE 5% IN WATER 50 ML IV SCH (10:47)
[2021-06-06] MEDS ORDERED: POTASSIUM CHLORIDE 20 MEQ in DEXTROSE 5% IN WATER 250 ML IV PRN (15:45)
--- NOTE | 2021-06-06 15:48 | Ultrasound Report ---
CLINICAL INFORMATION: Transaminitis. Alcohol use COMPARISON: None. FINDINGS: The liver is normal in size with slight decrease in echotexture. There is moderate dilatation hepatic veins likely reflecting elevated cardiac pressures. No focal hepatic lesions. Gallbladder wall is slightly thickened at 4 mm which likely reflects edema. No stones identified. Common bile duct was not visualized. Pancreas not visualized.. IMPRESSION: Hypoechoic liver with dilated hepatic veins likely reflective of congestive hepatopathy in a patient with known congestive heart failure. If there is a history of alcohol use, then superimposed alcoholic hepatitis is also possible. No definitive sonographic evidence of cirrhosis Interpreted and Authenticated by: Branden Alicia 06/06/21
[2021-06-06] MEDS: chlordiazePOXIDE 25 MG CAPSULE PO PRN (20:08)
[2021-06-07] MEDS: LORazepam 2 MG/ML VIAL IV PRN ×5 (00:55→23:20)
[2021-06-07] MEDS: 0.9 % SODIUM CHLORIDE 10 ML SYRINGE IV SCH ×3 (05:31→20:22)
[2021-06-07 06:35] LABS: Basophils # (Auto) 0.05 K/mcL (0.00-0.30); Basophils % (Auto) 0.6 % (0.0-2.0); Eosinophils # (Auto) 0.03 K/mcL (0.00-0.70); Eosinophils % (Auto) 0.3 % (0.0-7.0); Hematocrit 31.1 % (34.1-44.9); Hemoglobin 10.7 g/dL (11.2-15.7); Lymphocytes # (Auto) 1.13 K/mcL (1.50-4.80); Lymphocytes % (Auto) 12.8 % (15.5-49.0); Mean Cell Volume 100.6 fL (80.0-100.0); Mean Corpuscular HGB Conc 34.4 g/dL (31.0-36.0); Mean Platelet Volume 11.5 fL (7.4-10.4); Monocytes # (Auto) 0.73 K/mcL (0.10-0.90); Monocytes % (Auto) 8.3 % (1.0-12.0); Platelet Count 100 K/mcL (140-440); RBC 3.09 M/mcL (3.59-5.38); Red Cell Distribution Width 14.6 % (11.5-14.5); WBC 8.8 K/mcL (4.5-11.0)
[2021-06-07 07:14] LABS: INR 3.5 (0.9-1.1); Prothrombin Time 36.4 sec (11.9-14.5)
[2021-06-07 07:27] LABS: ALT/SGPT 577 U/L (<40); AST/SGOT 975 U/L (<32); Albumin 3.3 gm/dL (3.2-5.2); Albumin/Globulin Ratio 1.2 (1.0-2.3); Alkaline Phosphatase 56 U/L (39-117); Bilirubin,Total 1.8 mg/dL (0.1-1.0); Blood Urea Nitrogen 19 mg/dL (6-20); Calcium 8.2 mg/dL (8.6-10.4); Carbon Dioxide 25 mmol/L (22-30); Chloride 97 mmol/L (96-108); Globulin 2.7 gm/dL (2.2-3.7); Glomerular Filtration Rate 39; Glucose 94 mg/dL (70-105)
[2021-06-07] MEDS: LEVOTHYROXINE 150 MCG TABLET PO SCH (07:27)
[2021-06-07] MEDS: INSULIN LISPRO 1 UNIT/0.01 ML UNIT SQ SCH (07:28)
[2021-06-07] MEDS: RIVAROXABAN 20 MG TABLET PO SCH (08:51)
[2021-06-07] MEDS: MULTIVIT,THER IRON,CA,FA & MIN 1 TABLET PO SCH (08:51)
[2021-06-07] MEDS: FOLIC ACID 1 MG TABLET PO SCH (08:51)
[2021-06-07] MEDS: METOPROLOL TARTRATE 25 MG TABLET PO SCH ×2 (08:51→20:21)
[2021-06-07] MEDS: cefTRIAXone 2 GM in DEXTROSE 5% IN WATER 50 ML IV SCH (08:52)
[2021-06-07] MEDS ORDERED: RIVAROXABAN 20 MG TABLET PO SCH (09:00)
[2021-06-07] MEDS: THIAMINE 100 MG TABLET PO SCH (09:25)
[2021-06-07] MEDS ORDERED: ONDANSETRON 4 MG/2 ML VIAL IV PRN (09:29)
--- NOTE | 2021-06-07 09:33 | Internal Med Progress Note ---
SUBJECTIVE Subjective Patient information: Note initiated : 06/07/21 at 9:30 am Service Date, if different from initiated Date: [] Patient: Peg Kitchen a 55 y/o F admitted on 06/04/21 for Unresponsive. Chief Complaint: [] Interval history: Ms. Kitchen is a 55 year old F History obtained from chart as patient is currently intubated and sedated. Per the boyfriend he woke up and heard her gurgling. Then she turned rigid and started shaking and then started vomiting. Per the boyfriend she is never had a seizure before. She recently abruptly stopped drinking alcohol and has a his heavy history of alcohol abuse. Patient was incontinent of both bowel and bladder. He was normal when she went to bed. Case was initially discussed with stroke neurologist who felt patient should be transferred for continuous EEG monitoring but then with appointment setter was called at [place] they felt it was alcohol related withdrawal and that patient could be treated locally. CTA head neck were negative CT head was negative for acute but showed atrophy mild. Per the family she had been feeling unwell for several days but had no specific complaints. In the ED she remained unresponsive with the low [place] Coma Scale and was intubated for airway protection. Chest x-ray with pulmonary edema. Patient did receive Lasix. Concern for aspiration Prolactin level elevated providing evidence for suspected seizure, also elevated lactate. 06/05 Patient sedated on the vent. Starting sedation vacation to allow for weaning trial. No seizure activity noted overnight. Lactic acidosis improved. Significant hypokalemia and mildly low Phos. Transaminitis. Follow-up chest x- ray on vent and pulmonary edema. In the early afternoon patient began to have repeated short runs of V. tach, patient was asymptomatic. During this time we placed pads in case of any deterioration and ordered to 150mg of IV amiodarone. Eventually however her runs became more prolonged and she lost consciousness and was immediately shocked with 200 J and CPR immediately started but patient awoke after 2 compressions. Patient awake and following commands although drowsy. Amiodarone drip currently in place. We will discuss case with cardiology. I Spoke with her diamond merchant Dr. Madera who felt the Vtach was likely dofetilide related. Patient also reports that she has felt "off" since starting that medication. He does not feel that she needs an AICD upgrade at this point and does not feel that she needs transfer at this point. That the dofetilide needs to clear out of her body. We will keep amiodarone drip for now. He also recommended increasing her pacemaker settings to heart rate of 80. She has a [employer] pacer and will reach out to the player services representative. If she has another episode that requires defibrillation we will then transfer up to [place], per discussion with Dr. Madera. 06/06 No overnight event. Patient player services representative came and adjusted heart rate to 80. Patient has elevated CIWA scores requiring Ativan, patient drowsy but responsi ve. No new pains or complaints, no coughing or shortness of breath. 06/07: Amiodarone drip stopped at around 230 this morning. CIWA scores 9,10,14 overnight; complained of visual hallucinations last night. Continue CIWA protocol for alcohol withdrawal symptoms management. Alert and oriented X1 to person only this morning. Poor appetite. Multiple bowel movement. Continue Rocephin for aspiration pneumonia and UTI. Continue Metoprolol and Xarelto for atrial fibrillation. Transfer from ICU to PCU. Continue to work with PT/OT. Constitutional Vitals: Vital Signs Temp Pulse Resp BP Pulse Ox 36.1 C 79 25 H 120/75 93 06/07/21 08:02 06/07/21 08:02 06/07/21 08:02 06/07/21 08:02 06/07/21 08:02 Period Temp Pulse Resp BP Sys/Michel Pulse Ox Last 24 Hr 36.1 C-37.4 C 79-91 18-31 104-122/59-83 91-99 Intake and Output 06/06/21 06/07/21 06/07/21 21:59 05:59 13:59 Intake Total 617 460 400 Output Total 225 225 75 Balance 392 235 325 Weight 80.422 kg Intake & Output: Intake & Output 06/06/21 06/07/21 06/07/21 21:59 05:59 13:59 Intake Total 617 460 400 Output Total 225 225 75 Balance 392 235 325 Weight 80.422 kg Intake: IV 107 Nexterone 360 mg In Premix 1 107 Bag @ 0.5 MG/MIN 16.667 mls/hr IV .Q12H [facility] Rx#:[id number] Oral 510 460 400 Output: Urine Catheter Amount 225 225 75 Other: Urine Appearance Clear Clear Uretheral (Yeager) Clear Clear Urine Color Dark Kelli Dark Kelli Dark Kelli Uretheral (Yeager) Dark Kelli Dark Kelli Urine Odor Normal Stool Size Moderate Smear Small Stool Color Brown Brown Brown Yellow Stool Consistency Liquid Liquid Loose Watery # of times incontinent of 1 1 Bowels General appearance: average body habitus and cooperative Head Head exam: Present atraumatic and normal inspection Eye Eye exam: Present normal appearance ENT ENT exam: Present mucous membranes moist, normal exam and normal external ear exam Neck Neck exam: Present normal inspection Respiratory Respiratory exam: Present normal respiratory exam Cardiovascular Cardiovascular exam: Present normal rate and rhythm GI/Abdominal GI/Abdominal exam: Present normal bowel sounds Additional comments: Yeager catheter in place Back Exam Back exam: Present normal inspection Neurological Exam Neurological exam: Present alert; Absent oriented X3 Additional comments: oriented X1 to person only Skin Skin exam: Present intact and warm OBJ DATA Labs CBC & Chem 7: 06/07/21 05:08 06/07/21 05:08 Labs: Abnormal Lab Results 06/07/21 06/07/21 06/07/21 05:08 05:08 05:08 RBC 3.09 L Hgb 10.7 L Hct 31.1 L MCV 100.6 H MCH 34.6 H RDW 14.6 H Plt Count 100 L MPV 11.5 H Lymph % (Auto) 12.8 L Lymph # (Auto) 1.13 L PT 36.4 H INR 3.5 H Sodium Potassium Chloride Carbon Dioxide Creatinine 1.5 H Glucose Calcium 8.2 L Phosphorus Total Bilirubin 1.8 H Direct Bilirubin GGT AST 975 H ALT 577 H Lactate Dehydrogenase NT-Pro-B Natriuret Pep Total Protein Folate Urine Appearance Urine Protein Ur Leukocyte Esterase Urine RBC Urine WBC Urine Bacteria Urine Mucus 06/07/21 06/06/21 06/05/21 05:08 05:24 15:06 RBC Hgb Hct MCV MCH RDW Plt Count MPV Lymph % (Auto) Lymph # (Auto) PT INR Sodium 132 L Potassium Chloride 95 L Carbon Dioxide 21 L Creatinine 1.2 H Glucose 108 H Calcium 8.1 L Phosphorus Total Bilirubin 2.0 H Direct Bilirubin 1.2 H GGT 72 H AST 913 H ALT 419 H Lactate Dehydrogenase 963 H NT-Pro-B Natriuret Pep 34163.0 H Total Protein Folate Urine Appearance Turbid A Urine Protein 100 A Ur Leukocyte Esterase 500 A Urine RBC 13 H Urine WBC > 182 H Urine Bacteria Mod A Urine Mucus Many A 06/05/21 06/05/21 06/05/21 14:23 08:37 08:37 RBC Hgb Hct MCV MCH RDW Plt Count MPV Lymph % (Auto) Lymph # (Auto) PT INR Sodium Potassium Chloride Carbon Dioxide Creatinine Glucose 125 H Calcium 8.1 L Phosphorus Total Bilirubin Direct Bilirubin GGT AST ALT Lactate Dehydrogenase NT-Pro-B Natriuret Pep 7274.0 H Total Protein Folate > 20.0 H Urine Appearance Urine Protein Ur Leukocyte Esterase Urine RBC Urine WBC Urine Bacteria Urine Mucus 06/05/21 06/05/21 06/04/21 05:08 05:08 11:37 RBC 3.02 L Hgb 10.1 L Hct 30.3 L MCV 100.3 H MCH RDW Plt Count 114 L MPV Lymph % (Auto) Lymph # (Auto) PT INR Sodium 129 L Potassium 2.6 L* 2.9 L* Chloride 89 L Carbon Dioxide Creatinine 1.3 H Glucose 146 H Calcium 8.0 L 8.0 L Phosphorus 2.0 L Total Bilirubin 2.5 H Direct Bilirubin 1.5 H GGT 68 H AST 129 H ALT 69 H Lactate Dehydrogenase 238 H NT-Pro-B Natriuret Pep Total Protein 5.6 L Folate Urine Appearance Urine Protein Ur Leukocyte Esterase Urine RBC Urine WBC Urine Bacteria Urine Mucus Meds: Medications Albuterol/Ipratropium (Ipratropium/Albuterol 3 Ml Ampul.Neb) 3 ml NEB Q4HP PRN PRN Reason: Shortness Of Breath Chlordiazepoxide HCl (Chlordiazepoxide 25 Mg Capsule) 50 mg PO Q4HP PRN PRN Reason: Alcohol Withdrawal Last Admin: 06/06/21 20:08 Dose: 50 mg Documented by: Clonidine HCl (Clonidine Hcl 0.1 Mg Tablet) 0.1 mg PO Q4HP PRN PRN Reason: ALC Dextrose (Dextrose 50% 50 Ml Vial) 0 ml IV UD PRN PRN Reason: Per Sliding Scale Diagnostic Test (Pha) (Accu-Chek 1 Each Strip) 1 each FS ACHS CHE Last Admin: 06/07/21 07:28 Dose: 1 each Documented by: Folic Acid (Folic Acid 1 Mg Tablet) 1 mg PO DAILY [facility] Last Admin: 06/07/21 08:51 Dose: 1 mg Documented by: Glucose (Dextrose 31 Gm Oral.Susp) 15 gm PO PRN PRN PRN Reason: Hypoglycemia Sodium Chloride (Sodium Chloride 0.9%) 1,000 mls @ 0 mls/hr IV .Q0M [facility] Ceftriaxone Sodium 2 gm/ (Dextrose) 50 mls @ 100 mls/hr IV Q24H [facility]; Protocol Last Admin: 06/07/21 08:52 Dose: 100 mls/hr Documented by: Potassium Chloride 20 meq/ (Dextrose) 260 mls @ 130 mls/hr IV UD PRN PRN Reason: Hypokalemia Insulin Human Lispro (Insulin Lispro 1 Unit/0.01 Ml Unit) 0 unit SQ ACHS [facility]; Protocol Last Admin: 06/07/21 07:28 Dose: Not Given Documented by: Iron Carb/Multivit/Mcpherson/Folic Acid (Multivit,Ther Iron,Ca,Fa & Min 1 Tablet) 1 tab PO DAILY [facility] Last Admin: 06/07/21 08:51 Dose: 1 tab Documented by: Levothyroxine Sodium (Levothyroxine 150 Mcg Tablet) 150 mcg PO QAMAC [facility] Last Admin: 06/07/21 07:27 Dose: 150 mcg Documented by: Lorazepam (Lorazepam 2 Mg/Ml Vial) 0 mg IV PRN PRN; Protocol PRN Reason: Alcohol Withdrawal Last Admin: 06/07/21 00:55 Dose: 2 mg Documented by: Metoprolol Tartrate (Metoprolol Tartrate 5 Mg/5 Ml Vial) 5 mg IV Q2HP PRN PRN Reason: Tachyarrhythmias HR>110 Metoprolol Tartrate (Metoprolol Tartrate 25 Mg Tablet) 12.5 mg PO BID [facility] Last Admin: 06/07/21 08:51 Dose: 12.5 mg Documented by: Ondansetron HCl (Ondansetron 4 Mg/2 Ml Vial) 4 mg IV Q4-6HP PRN PRN Reason: Nausea And Vomiting Rivaroxaban (Rivaroxaban 20 Mg Tablet) 20 mg PO QDAY [facility] Last Admin: 06/07/21 08:51 Dose: 20 mg Documented by: Sodium Chloride (0.9 % Sodium Chloride 10 Ml Syringe) 10 ml IV Q8 [facility] Last Admin: 06/07/21 05:31 Dose: 10 ml Documented by: Thiamine HCl (Thiamine 100 Mg Tablet) 100 mg PO DAILY [facility] Last Admin: 06/07/21 09:25 Dose: 100 mg Documented by: A/P Assessment and plan (1) Aspiration pneumonia: Status: Acute (2) Alcohol withdrawal seizure with delirium: Status: Acute (3) Congestive heart failure (CHF): Status: Acute Qualifiers: Heart failure chronicity: unspecified Heart failure type: unspecified Qualified Code(s): I50.9 - Heart failure, unspecified (4) Atrial fibrillation: Status: Chronic Qualifiers: Atrial fibrillation type: unspecified chronic Qualified Code(s): I48.20 - Chronic atrial fibrillation, unspecified (5) Pacemaker: Status: Chronic (6) UTI (urinary tract infection): Status: Acute (7) Hepatic encephalopathy: Status: Acute (8) Alcoholic cirrhosis: Status: Acute (9) Anemia, macrocytic: Status: Acute (10) Stage 1 acute kidney injury: Status: Acute (11) Hypothyroidism: Status: Acute (12) Coagulopathy: Status: Acute (13) Transaminitis: Status: Acute Narrative A/P Narrative: Assessment and Plans: 1. s/p cardiac arrest 2/2 ventricular tachycardia, h/o atrial fibrillation: Transfer from ICU to PCU with telemetry Stop Dofetilide If another episode of V tach occurs, will transfer to [facility] cardiology for further management Metoprolol tartrate 12.5mg PO BID Amiodarone drip stopped at 0230 this morning Xarelto 2. 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 h/o CHF: BNP elevated; currently tolerating room air and no signs of respiratory distress Hold Lasix PO from home due to acute kidney injury; will constantly re-evaluate 5. Stage 1 acute kidney injury: Avoid nephrotoxic agents Hold Lasix PO from home due to acute kidney injury; will constantly re-evaluate Saline lock CMP daily to trend kidney functions 6. Anemia, macrocytic hyperchromic: Folate, multivitamin, iron, Thiamine supplements cbc w/ auto diff in the morning to trend H/H 7. Hypothyroidism: Continue thyroid replacement therapy 8. Aspiration pneumonia: Currently tolerating room air Continue day 3 Rocephin Sputum culture grew Haemophilus species Blood culture no growth to date cbc w/ auto diff in the morning to trend WBC 9. UTI: Urine culture grew K pneumoniae sensitive to Rocephin Blood culture no growth to date Continue day 3 Rocephin cbc w/ auto diff in the morning to trend WBC GI ppx: Pepcid DVT ppx: Xarelto Code status: Full Prognosis: guarded Disposition: inpatient ICU-->transfer to PCU Critical Care Time: 45min Time Spent With Patient Time: Total time spent is greater than 50% in coordination of care (as documented) at patient's floor/unit and/or counseling patient: Total time spent with greater than 50% in coordination of care (as documented) at patient's floor/unit and/or counseling patient:: 35 - 50 minutes Critical Care Time: Yes Total Critical Care Time: 45 QUALITY Stroke Symptom Onset Unknown: Yes
[2021-06-07] MEDS: FAMOTIDINE 20 MG TABLET PO SCH (20:21)
[2021-06-07] MEDS: chlordiazePOXIDE 25 MG CAPSULE PO PRN (20:31)
[2021-06-08] MEDS: 0.9 % SODIUM CHLORIDE 10 ML SYRINGE IV SCH ×3 (05:56→21:03)
[2021-06-08 07:24] LABS: ALT/SGPT 403 U/L (<40); AST/SGOT 345 U/L (<32); Albumin 3.2 gm/dL (3.2-5.2); Albumin/Globulin Ratio 1.2 (1.0-2.3); Alkaline Phosphatase 56 U/L (39-117); Bilirubin,Total 1.6 mg/dL (0.1-1.0); Blood Urea Nitrogen 18 mg/dL (6-20); Calcium 8.4 mg/dL (8.6-10.4); Carbon Dioxide 27 mmol/L (22-30); Chloride 97 mmol/L (96-108); Globulin 2.7 gm/dL (2.2-3.7); Glomerular Filtration Rate 64; Glucose 85 mg/dL (70-105)
[2021-06-08 07:40] LABS: Basophils # (Auto) 0.04 K/mcL (0.00-0.30); Basophils % (Auto) 0.6 % (0.0-2.0); Eosinophils % (Auto) 2.8 % (0.0-7.0); Hematocrit 30.4 % (34.1-44.9); Hemoglobin 10.5 g/dL (11.2-15.7); Lymphocytes # (Auto) 0.95 K/mcL (1.50-4.80); Lymphocytes % (Auto) 13.2 % (15.5-49.0); Mean Corpuscular HGB Conc 34.5 g/dL (31.0-36.0); Mean Platelet Volume 11.1 fL (7.4-10.4); Monocytes # (Auto) 0.77 K/mcL (0.10-0.90); Monocytes % (Auto) 10.7 % (1.0-12.0); Neutrophils % (Auto) 72.7 % (38.0-78.0); Platelet Count 96 K/mcL (140-440); RBC 3.01 M/mcL (3.59-5.38); Red Cell Distribution Width 14.4 % (11.5-14.5); WBC 7.2 K/mcL (4.5-11.0)
[2021-06-08] MEDS: LEVOTHYROXINE 150 MCG TABLET PO SCH (07:40)
[2021-06-08] MEDS: METOPROLOL TARTRATE 25 MG TABLET PO SCH ×2 (08:37→21:09)
[2021-06-08] MEDS: MULTIVIT,THER IRON,CA,FA & MIN 1 TABLET PO SCH (08:37)
[2021-06-08] MEDS: THIAMINE 100 MG TABLET PO SCH (08:37)
[2021-06-08] MEDS: FOLIC ACID 1 MG TABLET PO SCH (08:38)
[2021-06-08] MEDS: FAMOTIDINE 20 MG TABLET PO SCH ×2 (08:38→21:08)
[2021-06-08] MEDS: cefTRIAXone 2 GM in DEXTROSE 5% IN WATER 50 ML IV SCH (09:16)
[2021-06-08] MEDS: RIVAROXABAN 20 MG TABLET PO SCH (09:27)
--- NOTE | 2021-06-08 09:59 | Internal Med Progress Note ---
SUBJECTIVE Subjective Patient information: Note initiated : 06/08/21 at 9:55 am Service Date, if different from initiated Date: [] Patient: Peg Kitchen a 55 y/o F admitted on 06/04/21 for Unresponsive. Chief Complaint: [] Interval history: Ms. Kitchen is a 55 year old F History obtained from chart as patient is currently intubated and sedated. Per the boyfriend he woke up and heard her gurgling. Then she turned rigid and started shaking and then started vomiting. Per the boyfriend she is never had a seizure before. She recently abruptly stopped drinking alcohol and has a his heavy history of alcohol abuse. Patient was incontinent of both bowel and bladder. He was normal when she went to bed. Case was initially discussed with stroke neurologist who felt patient should be transferred for continuous EEG monitoring but then with histotechnologist was called at [place] they felt it was alcohol related withdrawal and that patient could be treated locally. CTA head neck were negative CT head was negative for acute but showed atrophy mild. Per the family she had been feeling unwell for several days but had no specific complaints. In the ED she remained unresponsive with the low [place] Coma Scale and was intubated for airway protection. Chest x-ray with pulmonary edema. Patient did receive Lasix. Concern for aspiration Prolactin level elevated providing evidence for suspected seizure, also elevated lactate. 06/05 Patient sedated on the vent. Starting sedation vacation to allow for weaning trial. No seizure activity noted overnight. Lactic acidosis improved. Significant hypokalemia and mildly low Phos. Transaminitis. Follow-up chest x- ray on vent and pulmonary edema. In the early afternoon patient began to have repeated short runs of V. tach, patient was asymptomatic. During this time we placed pads in case of any deterioration and ordered to 150mg of IV amiodarone. Eventually however her runs became more prolonged and she lost consciousness and was immediately shocked with 200 J and CPR immediately started but patient awoke after 2 compressions. Patient awake and following commands although drowsy. Amiodarone drip currently in place. We will discuss case with cardiology. I Spoke with her infrastructure design engineer Dr. Madera who felt the Vtach was likely dofetilide related. Patient also reports that she has felt "off" since starting that medication. He does not feel that she needs an AICD upgrade at this point and does not feel that she needs transfer at this point. That the dofetilide needs to clear out of her body. We will keep amiodarone drip for now. He also recommended increasing her pacemaker settings to heart rate of 80. She has a [employer] pacer and will reach out to the sales representative electric service. If she has another episode that requires defibrillation we will then transfer up to [place], per discussion with Dr. Madera. 06/06 No overnight event. Patient sales representative electric service came and adjusted heart rate to 80. Patient has elevated CIWA scores requiring Ativan, patient drowsy but responsi ve. No new pains or complaints, no coughing or shortness of breath. 06/07: Amiodarone drip stopped at around 230 this morning. CIWA scores 9,10,14 overnight; complained of visual hallucinations last night. Continue CIWA protocol for alcohol withdrawal symptoms management. Alert and oriented X1 to person only this morning. Poor appetite. Multiple bowel movement. Continue Rocephin for aspiration pneumonia and UTI. Continue Metoprolol and Xarelto for atrial fibrillation. Transfer from ICU to PCU. Continue to work with PT/OT. 06/08: CIWA score of 9 this morning. Denies any hallucinations. c/o insomnia. Denies agitation or anxiety. Denies increased hand tremors. Denies nausea vomiting. Continue CIWA protocol for alcohol withdrawal symptoms management. Alert and oriented X2 to person and place only this morning. Multiple bowel movements overnight and this morning. Continue Rocephin for aspiration pneumonia and UTI. Continue Metoprolol and Xarelto for atrial fibrillation. Transfer from PCU to med surg. Continue to work with PT/OT for placement assessment and recommendations. Constitutional Vitals: Vital Signs Temp Pulse Resp BP Pulse Ox 36.5 C 81 21 118/68 94 06/08/21 06:00 06/08/21 06:00 06/08/21 08:45 06/08/21 08:45 06/08/21 08:45 Period Temp Pulse Resp BP Sys/Michel Pulse Ox Last 24 Hr 36.2 C-37.1 C 79-81 12-24 97-120/64-78 91-100 Intake and Output 06/07/21 06/08/21 06/08/21 21:59 05:59 13:59 Intake Total 120 300 50 Output Total 1 550 Balance 119 300 -500 Weight 81.102 kg Intake & Output: Intake & Output 06/07/21 06/08/21 06/08/21 21:59 05:59 13:59 Intake Total 120 300 50 Output Total 1 550 Balance 119 300 -500 Weight 81.102 kg Intake: IV 50 Rocephin 2 gm In Dextrose 5% in 50 Water 50 ml @ 100 mls/hr IV Q24H [facility] Rx#:[id number] Oral 120 300 Output: Void Amount 550 # of times incontinent of urine 1 Other: Meal Dinner Percent of Meal Consumed 50% Urine Appearance Sediment Urine Color Dark Yellow Stool Size Smear Large Stool Color Green Brown Green Stool Consistency Liquid Liquid Loose Watery Loose # Voids 1 # Bowel Movements 1 2 # of times incontinent of 2 Bowels General appearance: average body habitus, cooperative and no acute distress Head Head exam: Present atraumatic and normal inspection Eye Eye exam: Present normal appearance ENT ENT exam: Present mucous membranes moist, normal exam and normal external ear exam Neck Neck exam: Present normal inspection Respiratory Respiratory exam: Present normal respiratory exam Cardiovascular Cardiovascular exam: Present normal rate and rhythm Additional comments: cardiac pacemaker in place GI/Abdominal GI/Abdominal exam: Present normal bowel sounds Back Exam Back exam: Present normal inspection Neurological Exam Neurological exam: Present alert; Absent oriented X3 Additional comments: oriented X2 to person and place only Skin Skin exam: Present intact and warm OBJ DATA Labs CBC & Chem 7: 06/08/21 05:50 06/08/21 05:50 Labs: Abnormal Lab Results 06/08/21 06/08/21 06/07/21 05:50 05:50 05:08 RBC 3.01 L Hgb 10.5 L Hct 30.4 L MCV 101.0 H MCH 34.9 H RDW Plt Count 96 L MPV 11.1 H Lymph % (Auto) 13.2 L Lymph # (Auto) 0.95 L PT INR Sodium Potassium 3.0 L Chloride Carbon Dioxide Creatinine 1.5 H Glucose Calcium 8.4 L 8.2 L Total Bilirubin 1.6 H 1.8 H Direct Bilirubin GGT AST 345 H 975 H ALT 403 H 577 H Lactate Dehydrogenase NT-Pro-B Natriuret Pep Folate Urine Appearance Urine Protein Ur Leukocyte Esterase Urine RBC Urine WBC Urine Bacteria Urine Mucus 06/07/21 06/07/21 06/07/21 05:08 05:08 05:08 RBC 3.09 L Hgb 10.7 L Hct 31.1 L MCV 100.6 H MCH 34.6 H RDW 14.6 H Plt Count 100 L MPV 11.5 H Lymph % (Auto) 12.8 L Lymph # (Auto) 1.13 L PT 36.4 H INR 3.5 H Sodium Potassium Chloride Carbon Dioxide Creatinine Glucose Calcium Total Bilirubin Direct Bilirubin GGT AST ALT Lactate Dehydrogenase NT-Pro-B Natriuret Pep 34440.0 H Folate Urine Appearance Urine Protein Ur Leukocyte Esterase Urine RBC Urine WBC Urine Bacteria Urine Mucus 06/06/21 06/05/21 06/05/21 05:24 15:06 14:23 RBC Hgb Hct MCV MCH RDW Plt Count MPV Lymph % (Auto) Lymph # (Auto) PT INR Sodium 132 L Potassium Chloride 95 L Carbon Dioxide 21 L Creatinine 1.2 H Glucose 108 H 125 H Calcium 8.1 L 8.1 L Total Bilirubin 2.0 H Direct Bilirubin 1.2 H GGT 72 H AST 913 H ALT 419 H Lactate Dehydrogenase 963 H NT-Pro-B Natriuret Pep Folate Urine Appearance Turbid A Urine Protein 100 A Ur Leukocyte Esterase 500 A Urine RBC 13 H Urine WBC > 182 H Urine Bacteria Mod A Urine Mucus Many A 06/05/21 06/05/21 08:37 08:37 RBC Hgb Hct MCV MCH RDW Plt Count MPV Lymph % (Auto) Lymph # (Auto) PT INR Sodium Potassium Chloride Carbon Dioxide Creatinine Glucose Calcium Total Bilirubin Direct Bilirubin GGT AST ALT Lactate Dehydrogenase NT-Pro-B Natriuret Pep 7274.0 H Folate > 20.0 H Urine Appearance Urine Protein Ur Leukocyte Esterase Urine RBC Urine WBC Urine Bacteria Urine Mucus Meds: Medications Albuterol/Ipratropium (Ipratropium/Albuterol 3 Ml Ampul.Neb) 3 ml NEB Q4HP PRN PRN Reason: Shortness Of Breath Chlordiazepoxide HCl (Chlordiazepoxide 25 Mg Capsule) 50 mg PO Q4HP PRN PRN Reason: Alcohol Withdrawal Last Admin: 06/07/21 20:31 Dose: 50 mg Documented by: Clonidine HCl (Clonidine Hcl 0.1 Mg Tablet) 0.1 mg PO Q4HP PRN PRN Reason: ALC Famotidine (Famotidine 20 Mg Tablet) 20 mg PO BID CHE Last Admin: 06/08/21 08:38 Dose: 20 mg Documented by: Folic Acid (Folic Acid 1 Mg Tablet) 1 mg PO DAILY [facility] Last Admin: 06/08/21 08:38 Dose: 1 mg Documented by: Ceftriaxone Sodium 2 gm/ (Dextrose) 50 mls @ 100 mls/hr IV Q24H [facility]; Protocol Last Infusion: 06/08/21 09:52 Dose: Infused Documented by: Potassium Chloride 20 meq/ (Dextrose) 260 mls @ 130 mls/hr IV UD PRN PRN Reason: Hypokalemia Iron Carb/Multivit/[place]/Folic Acid (Multivit,Ther Iron,Ca,Fa & Min 1 Tablet) 1 tab PO DAILY [facility] Last Admin: 06/08/21 08:37 Dose: 1 tab Documented by: Levothyroxine Sodium (Levothyroxine 150 Mcg Tablet) 150 mcg PO QAMAC [facility] Last Admin: 06/08/21 07:40 Dose: 150 mcg Documented by: Lorazepam (Lorazepam 2 Mg/Ml Vial) 0 mg IV PRN PRN; Protocol PRN Reason: Alcohol Withdrawal Last Admin: 06/07/21 23:20 Dose: 2 mg Documented by: Lorazepam (Lorazepam 1 Mg Tablet) 1 mg PO Q6HP PRN PRN Reason: ANXIETY/SEDATION Metoprolol Tartrate (Metoprolol Tartrate 5 Mg/5 Ml Vial) 5 mg IV Q2HP PRN PRN Reason: Tachyarrhythmias HR>110 Metoprolol Tartrate (Metoprolol Tartrate 25 Mg Tablet) 12.5 mg PO BID [facility] Last Admin: 06/08/21 08:37 Dose: 12.5 mg Documented by: Ondansetron HCl (Ondansetron 4 Mg/2 Ml Vial) 4 mg IV Q4-6HP PRN PRN Reason: Nausea And Vomiting Potassium Chloride (Potassium Chloride 20 Meq Tablet) 20 meq PO BIDCC [facility] Rivaroxaban (Rivaroxaban 20 Mg Tablet) 20 mg PO QDAY [facility] Last Admin: 06/08/21 09:27 Dose: 20 mg Documented by: Sodium Chloride (0.9 % Sodium Chloride 10 Ml Syringe) 10 ml IV Q8 [facility] Last Admin: 06/08/21 05:56 Dose: 10 ml Documented by: Thiamine HCl (Thiamine 100 Mg Tablet) 100 mg PO DAILY [facility] Last Admin: 06/08/21 08:37 Dose: 100 mg Documented by: A/P Assessment and plan (1) Aspiration pneumonia: Status: Acute (2) Alcohol withdrawal seizure with delirium: Status: Acute (3) Congestive heart failure (CHF): Status: Acute Qualifiers: Heart failure chronicity: unspecified Heart failure type: unspecified Qualified Code(s): I50.9 - Heart failure, unspecified (4) Atrial fibrillation: Status: Chronic Qualifiers: Atrial fibrillation type: unspecified chronic Qualified Code(s): I48.20 - Chronic atrial fibrillation, unspecified (5) Pacemaker: Status: Chronic (6) UTI (urinary tract infection): Status: Acute (7) Hepatic encephalopathy: Status: Acute (8) Alcoholic cirrhosis: Status: Acute (9) Anemia, macrocytic: Status: Acute (10) Stage 1 acute kidney injury: Status: Acute (11) Hypothyroidism: Status: Acute (12) Coagulopathy: Status: Acute (13) Transaminitis: Status: Acute (14) Hypokalemia: Status: Acute Narrative A/P Narrative: Assessment and Plans: 1. s/p cardiac arrest 2/2 ventricular tachycardia, h/o atrial fibrillation: Transfer from PCU to med surg with telemetry Stop Dofetilide If another episode of V tach occurs, will transfer to [facility] cardiology for further management Metoprolol tartrate 12.5mg PO BID Xarelto 2. 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 Alcoholic cirrhosis with hepatic encephalopathy, transaminitis, and coagulopathy: Patient is having multiple bowel movements per day, will hold off Lactulose for the time being [employer] patient on quitting alcohol consumptions CMP and PT/INR daily 4. h/o CHF: BNP elevated; currently tolerating room air and no signs of respiratory distress Hold Lasix for hypokalemia for now; will constantly re-evaluate 5. Stage 1 acute kidney injury: RESOLVED Avoid nephrotoxic agents Hold Lasix for hypokalemia for now; will constantly re-evaluate Saline lock CMP daily to trend kidney functions 6. Anemia, macrocytic hyperchromic: Folate, multivitamin, iron, Thiamine supplements cbc w/ auto diff in the morning to trend H/H 7. Hypothyroidism: Continue thyroid replacement therapy 8. Aspiration pneumonia: Currently tolerating room air Continue day 4 Rocephin Sputum culture grew Haemophilus species as well as strep pneumoniae Blood culture no growth to date cbc w/ auto diff in the morning to trend WBC 9. UTI: Urine culture grew K pneumoniae sensitive to Rocephin Blood culture no growth to date Continue day 3 Rocephin cbc w/ auto diff in the morning to trend WBC 10. Hypokalemia: Potassium chloride replacement PO Hold Lasix for hypokalemia for now; will constantly re-evaluate CMP in the morning to trend serum potassium level Also check serum Mg level and replace as needed GI ppx: Pepcid DVT ppx: Xarelto Code status: Full Prognosis: guarded Disposition: inpatient med surg telemetry Time Spent With Patient Time: Total time spent is greater than 50% in coordination of care (as documented) at patient's floor/unit and/or counseling patient: Total time spent with greater than 50% in coordination of care (as documented) at patient's floor/unit and/or counseling patient:: 35 - 50 minutes QUALITY Stroke Symptom Onset Unknown: Yes
[2021-06-08] MEDS ORDERED: LORazepam 2 MG/ML VIAL IV PRN (10:00)
[2021-06-08] MEDS: POTASSIUM CHLORIDE 20 MEQ TABLET PO SCH (16:55)
[2021-06-08] MEDS: LORazepam 1 MG TABLET PO PRN (21:26)
[2021-06-09] MEDS: 0.9 % SODIUM CHLORIDE 10 ML SYRINGE IV SCH ×3 (06:16→21:14)
[2021-06-09] MEDS: POTASSIUM CHLORIDE 20 MEQ TABLET PO SCH ×2 (07:14→17:04)
[2021-06-09] MEDS: LEVOTHYROXINE 150 MCG TABLET PO SCH (07:14)
[2021-06-09 07:42] LABS: Basophils # (Auto) 0.03 K/mcL (0.00-0.30); Basophils % (Auto) 0.5 % (0.0-2.0); Eosinophils # (Auto) 0.16 K/mcL (0.00-0.70); Eosinophils % (Auto) 2.8 % (0.0-7.0); Hemoglobin 10.3 g/dL (11.2-15.7); Lymphocytes % (Auto) 15.8 % (15.5-49.0); Mean Cell Volume 102.3 fL (80.0-100.0); Mean Corpuscular HGB Conc 33.2 g/dL (31.0-36.0); Mean Platelet Volume 10.9 fL (7.4-10.4); Monocytes # (Auto) 0.72 K/mcL (0.10-0.90); Monocytes % (Auto) 12.6 % (1.0-12.0); Neutrophils % (Auto) 68.3 % (38.0-78.0); Platelet Count 120 K/mcL (140-440); RBC 3.03 M/mcL (3.59-5.38); Red Cell Distribution Width 14.6 % (11.5-14.5); WBC 5.7 K/mcL (4.5-11.0)
[2021-06-09 08:00] LABS: ALT/SGPT 323 U/L (<40); AST/SGOT 237 U/L (<32); Albumin 3.4 gm/dL (3.2-5.2); Albumin/Globulin Ratio 1.3 (1.0-2.3); Alkaline Phosphatase 66 U/L (39-117); Bilirubin,Total 1.7 mg/dL (0.1-1.0); Blood Urea Nitrogen 11 mg/dL (6-20); Calcium 9.1 mg/dL (8.6-10.4); Carbon Dioxide 28 mmol/L (22-30); Chloride 99 mmol/L (96-108); Globulin 2.6 gm/dL (2.2-3.7); Glomerular Filtration Rate 98; Glucose 86 mg/dL (70-105)
[2021-06-09] MEDS: METOPROLOL TARTRATE 25 MG TABLET PO SCH ×2 (08:49→21:13)
[2021-06-09] MEDS: FAMOTIDINE 20 MG TABLET PO SCH ×2 (08:49→21:13)
[2021-06-09] MEDS: THIAMINE 100 MG TABLET PO SCH (08:49)
[2021-06-09] MEDS: FOLIC ACID 1 MG TABLET PO SCH (08:49)
[2021-06-09] MEDS: MULTIVIT,THER IRON,CA,FA & MIN 1 TABLET PO SCH (08:49)
[2021-06-09] MEDS: RIVAROXABAN 20 MG TABLET PO SCH (08:50)
[2021-06-09] MEDS: LORazepam 1 MG TABLET PO PRN ×2 (10:07→21:14)
[2021-06-09] MEDS: cefTRIAXone 2 GM in DEXTROSE 5% IN WATER 50 ML IV SCH (10:43)
--- NOTE | 2021-06-09 15:59 | Internal Med Progress Note ---
SUBJECTIVE Subjective Patient information: Note initiated : 06/09/21 at 3:55 pm Service Date, if different from initiated Date: [] Patient: Peg Kitchen a 55 y/o F admitted on 06/04/21 for Unresponsive. Chief Complaint: [] Interval history: Ms. Kitchen is a 55 year old F History obtained from chart as patient is currently intubated and sedated. Per the boyfriend he woke up and heard her gurgling. Then she turned rigid and started shaking and then started vomiting. Per the boyfriend she is never had a seizure before. She recently abruptly stopped drinking alcohol and has a his heavy history of alcohol abuse. Patient was incontinent of both bowel and bladder. He was normal when she went to bed. Case was initially discussed with stroke neurologist who felt patient should be transferred for continuous EEG monitoring but then with executive advisor was called at [facility] they felt it was alcohol related withdrawal and that patient could be treated locally. CTA head neck were negative CT head was negative for acute but showed atrophy mild. Per the family she had been feeling unwell for several days but had no specific complaints. In the ED she remained unresponsive with the low [place] Coma Scale and was intubated for airway protection. Chest x-ray with pulmonary edema. Patient did receive Lasix. Concern for aspiration Prolactin level elevated providing evidence for suspected seizure, also elevated lactate. 06/05 Patient sedated on the vent. Starting sedation vacation to allow for weaning trial. No seizure activity noted overnight. Lactic acidosis improved. Significant hypokalemia and mildly low Phos. Transaminitis. Follow-up chest x- ray on vent and pulmonary edema. In the early afternoon patient began to have repeated short runs of V. tach, patient was asymptomatic. During this time we placed pads in case of any deterioration and ordered to 150mg of IV amiodarone. Eventually however her runs became more prolonged and she lost consciousness and was immediately shocked with 200 J and CPR immediately started but patient awoke after 2 compressions. Patient awake and following commands although drowsy. Amiodarone drip currently in place. We will discuss case with cardiology. I Spoke with her circus laborer Dr. Madera who felt the Vtach was likely dofetilide related. Patient also reports that she has felt "off" since starting that medication. He does not feel that she needs an AICD upgrade at this point and does not feel that she needs transfer at this point. That the dofetilide needs to clear out of her body. We will keep amiodarone drip for now. He also recommended increasing her pacemaker settings to heart rate of 80. She has a [employer] pacer and will reach out to the community representative. If she has another episode that requires defibrillation we will then transfer up to [place], per discussion with Dr. Madera. 06/06 No overnight event. Patient community representative came and adjusted heart rate to 80. Patient has elevated CIWA scores requiring Ativan, patient drowsy but responsi ve. No new pains or complaints, no coughing or shortness of breath. 06/07: Amiodarone drip stopped at around 230 this morning. CIWA scores 9,10,14 overnight; complained of visual hallucinations last night. Continue CIWA protocol for alcohol withdrawal symptoms management. Alert and oriented X1 to person only this morning. Poor appetite. Multiple bowel movement. Continue Rocephin for aspiration pneumonia and UTI. Continue Metoprolol and Xarelto for atrial fibrillation. Transfer from ICU to PCU. Continue to work with PT/OT. 06/08: CIWA score of 9 this morning. Denies any hallucinations. c/o insomnia. Denies agitation or anxiety. Denies increased hand tremors. Denies nausea vomiting. Continue CIWA protocol for alcohol withdrawal symptoms management. Alert and oriented X2 to person and place only this morning. Multiple bowel movements overnight and this morning. Continue Rocephin for aspiration pneumonia and UTI. Continue Metoprolol and Xarelto for atrial fibrillation. Transfer from PCU to med surg. Continue to work with PT/OT for placement assessment and recommendations. 06/09: CIWA score of 2 this morning. On room air. No complaints today. Continue CIWA protocol for alcohol withdrawal symptoms management. Continue Rocephin for aspiration pneumonia and UTI. Continue Metoprolol and Xarelto for atrial fibrillation. Continue to work with PT/OT for placement assessment and minesh mmendations. OT: would benefit from short term rehab. Constitutional Vitals: Vital Signs Temp Pulse Resp BP Pulse Ox 36.8 C 80 16 123/76 91 06/09/21 13:30 06/09/21 13:30 06/09/21 13:30 06/09/21 13:30 06/09/21 13:30 Period Temp Pulse Resp BP Sys/Michel Pulse Ox Last 24 Hr 36.6 C-36.8 C 80-80 16-22 104-123/65-76 91-94 Intake and Output 06/09/21 06/09/21 06/09/21 05:59 13:59 21:59 Intake Total 240 170 Output Total 825 Balance -585 170 Intake & Output: Intake & Output 06/09/21 06/09/21 06/09/21 05:59 13:59 21:59 Intake Total 240 170 Output Total 825 Balance -585 170 Intake: IV 50 Rocephin 2 gm In Dextrose 5% in 50 Water 50 ml @ 100 mls/hr IV Q24H [facility] Rx#:[id number] Oral 240 120 Output: Void Amount 825 Other: Urine Appearance Clear Urine Color Dark Yellow Urine Odor Normal General appearance: average body habitus, cooperative and no acute distress Head Head exam: Present atraumatic and normal inspection Eye Eye exam: Present normal appearance ENT ENT exam: Present mucous membranes moist, normal exam and normal external ear exam Neck Neck exam: Present normal inspection Respiratory Respiratory exam: Present normal respiratory exam Cardiovascular Cardiovascular exam: Present normal rate and rhythm GI/Abdominal GI/Abdominal exam: Present normal bowel sounds Back Exam Back exam: Present normal inspection Neurological Exam Neurological exam: Present alert; Absent oriented X3 Additional comments: oriented X2 to person and place Skin Skin exam: Present intact and warm OBJ DATA Labs CBC & Chem 7: 06/09/21 05:50 06/09/21 05:50 Labs: Abnormal Lab Results 06/09/21 06/09/21 06/08/21 05:50 05:50 05:50 RBC 3.03 L Hgb 10.3 L Hct 31.0 L MCV 102.3 H MCH RDW 14.6 H Plt Count 120 L MPV 10.9 H Lymph % (Auto) [place] % (Auto) 12.6 H Lymph # (Auto) 0.90 L PT INR Potassium 3.2 L 3.0 L Creatinine Calcium 8.4 L Phosphorus 2.0 L Total Bilirubin 1.7 H 1.6 H AST 237 H 345 H ALT 323 H 403 H NT-Pro-B Natriuret Pep 06/08/21 06/07/21 06/07/21 05:50 05:08 05:08 RBC 3.01 L 3.09 L Hgb 10.5 L 10.7 L Hct 30.4 L 31.1 L MCV 101.0 H 100.6 H MCH 34.9 H 34.6 H RDW 14.6 H Plt Count 96 L 100 L MPV 11.1 H 11.5 H Lymph % (Auto) 13.2 L 12.8 L [place] % (Auto) Lymph # (Auto) 0.95 L 1.13 L PT INR Potassium Creatinine 1.5 H Calcium 8.2 L Phosphorus Total Bilirubin 1.8 H AST 975 H ALT 577 H NT-Pro-B Natriuret Pep 06/07/21 06/07/21 05:08 05:08 RBC Hgb Hct MCV MCH RDW Plt Count MPV Lymph % (Auto) [place] % (Auto) Lymph # (Auto) PT 36.4 H INR 3.5 H Potassium Creatinine Calcium Phosphorus Total Bilirubin AST ALT NT-Pro-B Natriuret Pep 81569.0 H Meds: Medications Albuterol/Ipratropium (Ipratropium/Albuterol 3 Ml Ampul.Neb) 3 ml NEB Q4HP PRN PRN Reason: Shortness Of Breath Chlordiazepoxide HCl (Chlordiazepoxide 25 Mg Capsule) 50 mg PO Q4HP PRN PRN Reason: Alcohol Withdrawal Last Admin: 06/07/21 20:31 Dose: 50 mg Documented by: Clonidine HCl (Clonidine Hcl 0.1 Mg Tablet) 0.1 mg PO Q4HP PRN PRN Reason: ALC Famotidine (Famotidine 20 Mg Tablet) 20 mg PO BID [facility] Last Admin: 06/09/21 08:49 Dose: 20 mg Documented by: Folic Acid (Folic Acid 1 Mg Tablet) 1 mg PO DAILY [facility] Last Admin: 06/09/21 08:49 Dose: 1 mg Documented by: Ceftriaxone Sodium 2 gm/ (Dextrose) 50 mls @ 100 mls/hr IV Q24H [facility]; Protocol Last Infusion: 06/09/21 11:28 Dose: Infused Documented by: Potassium Chloride 20 meq/ (Dextrose) 260 mls @ 130 mls/hr IV UD PRN PRN Reason: Hypokalemia Last Infusion: 06/08/21 16:11 Dose: Infused Documented by: Iron Carb/Multivit/Bender Helper/Folic Acid (Multivit,Ther Iron,Ca,Fa & Min 1 Tablet) 1 tab PO DAILY [facility] Last Admin: 06/09/21 08:49 Dose: 1 tab Documented by: Levothyroxine Sodium (Levothyroxine 150 Mcg Tablet) 150 mcg PO QAMAC [facility] Last Admin: 06/09/21 07:14 Dose: 150 mcg Documented by: Lorazepam (Lorazepam 1 Mg Tablet) 1 mg PO Q6HP PRN PRN Reason: ANXIETY/SEDATION Last Admin: 06/09/21 10:07 Dose: 1 mg Documented by: Lorazepam (Lorazepam 2 Mg/Ml Vial) 0 mg IV Q4HP PRN; Protocol PRN Reason: Alcohol Withdrawal Metoprolol Tartrate (Metoprolol Tartrate 5 Mg/5 Ml Vial) 5 mg IV Q2HP PRN PRN Reason: Tachyarrhythmias HR>110 Metoprolol Tartrate (Metoprolol Tartrate 25 Mg Tablet) 12.5 mg PO BID [facility] Last Admin: 06/09/21 08:49 Dose: 12.5 mg Documented by: Ondansetron HCl (Ondansetron 4 Mg/2 Ml Vial) 4 mg IV Q4-6HP PRN PRN Reason: Nausea And Vomiting Potassium Chloride (Potassium Chloride 20 Meq Tablet) 20 meq PO BIDCC [facility] Last Admin: 06/09/21 07:14 Dose: 20 meq Documented by: Rivaroxaban (Rivaroxaban 20 Mg Tablet) 20 mg PO QDAY [facility] Last Admin: 06/09/21 08:50 Dose: 20 mg Documented by: Sodium Chloride (0.9 % Sodium Chloride 10 Ml Syringe) 10 ml IV Q8 [facility] Last Admin: 06/09/21 15:51 Dose: 10 ml Documented by: Thiamine HCl (Thiamine 100 Mg Tablet) 100 mg PO DAILY [facility] Last Admin: 06/09/21 08:49 Dose: 100 mg Documented by: A/P Assessment and plan (1) Aspiration pneumonia: Status: Acute (2) Alcohol withdrawal seizure with delirium: Status: Acute (3) Congestive heart failure (CHF): Status: Acute Qualifiers: Heart failure chronicity: unspecified Heart failure type: unspecified Qualified Code(s): I50.9 - Heart failure, unspecified (4) Atrial fibrillation: Status: Chronic Qualifiers: Atrial fibrillation type: unspecified chronic Qualified Code(s): I48.20 - Chronic atrial fibrillation, unspecified (5) Pacemaker: Status: Chronic (6) UTI (urinary tract infection): Status: Acute (7) Hepatic encephalopathy: Status: Acute (8) Alcoholic cirrhosis: Status: Acute (9) Anemia, macrocytic: Status: Acute (10) Stage 1 acute kidney injury: Status: Acute (11) Hypothyroidism: Status: Acute (12) Coagulopathy: Status: Acute (13) Transaminitis: Status: Acute (14) Hypokalemia: Status: Acute Narrative A/P Narrative: Assessment and Plans: 1. s/p cardiac arrest 2/2 ventricular tachycardia, h/o atrial fibrillation: Inpatient med surg Stop Dofetilide If another episode of Ventricular tachycardia occurs, will transfer to [facility] cardiology for further management Metoprolol tartrate 12.5mg PO BID Xarelto 2. Alcohol withdrawal: CIWA protocol, Ativan and other meds as needed for symptoms control Physical and occupational therapies television maintenance worker case folder for potential alcohol rehab placement further down the road 3. Alcoholic cirrhosis with hepatic encephalopathy, transaminitis, and coagulopathy: Patient is having multiple bowel movements per day, will hold off Lactulose for the time being Rate Clerk patient on quitting alcohol consumptions CMP and PT/INR daily 4. h/o CHF: BNP elevated; currently tolerating room air and no signs of respiratory distress Hold Lasix for hypokalemia for now; will constantly re-evaluate 5. Stage 1 acute kidney injury: RESOLVED Avoid nephrotoxic agents Hold Lasix for hypokalemia for now; will constantly re-evaluate Saline lock CMP daily to trend kidney functions 6. Anemia, macrocytic hyperchromic: Folate, multivitamin, iron, Thiamine supplements cbc w/ auto diff in the morning to trend H/H 7. Hypothyroidism: Continue thyroid replacement therapy 8. Aspiration pneumonia: Currently tolerating room air Continue day 5 Rocephin Sputum culture grew Haemophilus species as well as strep pneumoniae Blood culture no growth to date cbc w/ auto diff in the morning to trend WBC 9. UTI: Urine culture grew K pneumoniae sensitive to Rocephin Blood culture no growth to date Continue day 5 Rocephin cbc w/ auto diff in the morning to trend WBC 10. Hypokalemia: Potassium chloride replacement PO Hold Lasix for hypokalemia for now; will constantly re-evaluate CMP in the morning to trend serum potassium level Also check serum Mg level and replace as needed GI ppx: Pepcid DVT ppx: Xarelto Code status: Full Prognosis: guarded Disposition: inpatient med surg telemetry Time Spent With Patient Time: Total time spent is greater than 50% in coordination of care (as documented) at patient's floor/unit and/or counseling patient: Total time spent with greater than 50% in coordination of care (as documented) at patient's floor/unit and/or counseling patient:: 25 - 35 minutes QUALITY Stroke Symptom Onset Unknown: Yes
[2021-06-10] MEDS: 0.9 % SODIUM CHLORIDE 10 ML SYRINGE IV SCH (05:02)
[2021-06-10 07:06] LABS: Basophils # (Auto) 0.03 K/mcL (0.00-0.30); Basophils % (Auto) 0.6 % (0.0-2.0); Eosinophils # (Auto) 0.19 K/mcL (0.00-0.70); Eosinophils % (Auto) 3.5 % (0.0-7.0); Hematocrit 30.7 % (34.1-44.9); Lymphocytes # (Auto) 0.91 K/mcL (1.50-4.80); Lymphocytes % (Auto) 16.7 % (15.5-49.0); Mean Cell Volume 103.7 fL (80.0-100.0); Mean Corpuscular HGB Conc 32.6 g/dL (31.0-36.0); Mean Platelet Volume 10.4 fL (7.4-10.4); Monocytes # (Auto) 0.64 K/mcL (0.10-0.90); Monocytes % (Auto) 11.7 % (1.0-12.0); Neutrophils % (Auto) 67.5 % (38.0-78.0); Platelet Count 136 K/mcL (140-440); RBC 2.96 M/mcL (3.59-5.38); Red Cell Distribution Width 14.8 % (11.5-14.5); WBC 5.5 K/mcL (4.5-11.0)
[2021-06-10] MEDS: LEVOTHYROXINE 150 MCG TABLET PO SCH (07:10)
[2021-06-10] MEDS: POTASSIUM CHLORIDE 20 MEQ TABLET PO SCH (07:11)
[2021-06-10 07:30] LABS: ALT/SGPT 274 U/L (<40); AST/SGOT 183 U/L (<32); Albumin 3.4 gm/dL (3.2-5.2); Albumin/Globulin Ratio 1.4 (1.0-2.3); Alkaline Phosphatase 86 U/L (39-117); Bilirubin,Total 1.5 mg/dL (0.1-1.0); Blood Urea Nitrogen 9 mg/dL (6-20); Calcium 8.8 mg/dL (8.6-10.4); Carbon Dioxide 27 mmol/L (22-30); Chloride 101 mmol/L (96-108); Globulin 2.5 gm/dL (2.2-3.7); Glomerular Filtration Rate 98; Glucose 92 mg/dL (70-105)
[2021-06-10] MEDS: METOPROLOL TARTRATE 25 MG TABLET PO SCH (09:13)
[2021-06-10] MEDS: MULTIVIT,THER IRON,CA,FA & MIN 1 TABLET PO SCH (09:13)
[2021-06-10] MEDS: cefTRIAXone 2 GM in DEXTROSE 5% IN WATER 50 ML IV SCH (09:13)
[2021-06-10] MEDS: FOLIC ACID 1 MG TABLET PO SCH (09:13)
[2021-06-10] MEDS: RIVAROXABAN 20 MG TABLET PO SCH (09:13)
[2021-06-10] MEDS: THIAMINE 100 MG TABLET PO SCH (09:14)
[2021-06-10] MEDS: FAMOTIDINE 20 MG TABLET PO SCH (09:14)
--- NOTE | 2021-06-10 11:53 | Discharge Summary ---
Discharge Provider Provider Patient information: Note initiated : 06/10/21 at 11:44 am Service Date, if different from initiated Date: [] Patient: Peg Kitchen 55 y/o F admitted on 06/04/21 for Unresponsive. Chief Complaint: [] Date of admission: 06/04/21 09:29 Discharge date: 06/10/21 Primary care physician: Tremayne Narvaez MD Attending physician on admission: Russell Banks Consults: 06/04/21 Consult to Physician [CONS] Stat Comment: Consulting Provider: Russell Banks Reason For Exam: Physician to Consult Attending physician on discharge: Chi Arielle Pui Discharge Meds Discharge Medications Home Medications potassium chloride 10 mEq tablet,extended release (Klor-Con) 10 meq PO QDAY #30 tab 01/01/21 [Rx Confirmed 06/04/21 Last Taken Unknown] ondansetron 4 mg disintegrating tablet 4 mg PO Q8H PRN #10 tab 03/21/21 [Rx Confirmed 06/04/21 Last Taken Unknown] levothyroxine 150 mcg tablet 150 mcg PO QDAY #90 tab 04/22/21 [Rx Confirmed 06/04/21 Last Taken Unknown] folic acid 1 mg tablet 1 mg PO QDAY #90 tab 05/06/21 [Rx Confirmed 06/04/21 Last Taken Unknown] furosemide 40 mg tablet 1 tab PO QDAY 06/04/21 [History Confirmed 06/04/21 Last Taken Unknown] rivaroxaban 20 mg tablet (Xarelto) 20 mg PO QDAY 06/05/21 [History Confirmed 06/05/21 Last Taken Unknown] amoxicillin 500 mg-potassium clavulanate 125 mg tablet (Augmentin) 1 tab PO BID #10 tab 06/10/21 [Rx Last Taken Unknown] lorazepam 1 mg tablet 1 mg PO Q6HP PRN #10 tab 06/10/21 [Rx Last Taken Unknown] metoprolol tartrate 25 mg tablet 12.5 mg PO BID #60 tab 06/10/21 [Rx Last Taken Unknown] multivitamin-iron 9 mg-folic acid 400 mcg-calcium and minerals tablet (Thera M Plus (ferrous fumarate)) 1 tab PO DAILY #30 tab 06/10/21 [Rx Last Taken Unknown] thiamine mononitrate (vit B1) 100 mg tablet 100 mg PO DAILY #30 tab 03/22/22 [Rx Last Taken Unknown] COURSE Hospital Course Hospital course: Ms. Kitchen is a 55 year old F History obtained from chart as patient is currently intubated and sedated. Per the boyfriend he woke up and heard her gurgling. Then she turned rigid and started shaking and then started vomiting. Per the boyfriend she is never had a seizure before. She recently abruptly stopped drinking alcohol and has a his heavy history of alcohol abuse. Patient was incontinent of both bowel and bladder. He was normal when she went to bed. Case was initially discussed with stroke neurologist who felt patient should be transferred for continuous EEG monitoring but then with reach lift truck driver was called at [facility] they felt it was alcohol related withdrawal and that patient could be treated locally. CTA head neck were negative CT head was negative for acute but showed atrophy mild. Per the family she had been feeling unwell for several days but had no specific complaints. In the ED she remained unresponsive with the low [place] Coma Scale and was intubated for airway protection. Chest x-ray with pulmonary edema. Patient did receive Lasix. Concern for aspiration Prolactin level elevated providing evidence for suspected seizure, also elevated lactate. 06/05 Patient sedated on the vent. Starting sedation vacation to allow for weaning trial. No seizure activity noted overnight. Lactic acidosis improved. Significant hypokalemia and mildly low Phos. Transaminitis. Follow-up chest x- ray on vent and pulmonary edema. In the early afternoon patient began to have repeated short runs of V. tach, patient was asymptomatic. During this time we placed pads in case of any deterioration and ordered to 150mg of IV amiodarone. Eventually however her runs became more prolonged and she lost consciousness and was immediately shocked with 200 J and CPR immediately started but patient awoke after 2 compressions. Patient awake and following commands although drowsy. Amiodarone drip currently in place. We will discuss case with cardiology. I Spoke with her phlebotomist Dr. Madera who felt the Vtach was likely dofetilide related. Patient also reports that she has felt "off" since starting that medication. He does not feel that she needs an AICD upgrade at this point and does not feel that she needs transfer at this point. That the dofetilide needs to clear out of her body. We will keep amiodarone drip for now. He also recommended increasing her pacemaker settings to heart rate of 80. She has a [employer] pacer and will reach out to the sales service representative. If she has another episode that requires defibrillation we will then transfer up to [place], per discussion with Dr. Madera. 06/06 No overnight event. Patient sales service representative came and adjusted heart rate to 80. Patient has elevated CIWA scores requiring Ativan, patient drowsy but responsiv e. No new pains or complaints, no coughing or shortness of breath. 06/07: Amiodarone drip stopped at around 230 this morning. CIWA scores 9,10,14 overnight; complained of visual hallucinations last night. Continue CIWA protocol for alcohol withdrawal symptoms management. Alert and oriented X1 to person only this morning. Poor appetite. Multiple bowel movement. Continue Rocephin for aspiration pneumonia and UTI. Continue Metoprolol and Xarelto for atrial fibrillation. Transfer from ICU to PCU. Continue to work with PT/OT. 06/08: CIWA score of 9 this morning. Denies any hallucinations. c/o insomnia. Denies agitation or anxiety. Denies increased hand tremors. Denies nausea vomiting. Continue CIWA protocol for alcohol withdrawal symptoms management. Alert and oriented X2 to person and place only this morning. Multiple bowel movements overnight and this morning. Continue Rocephin for aspiration pneumonia and UTI. Continue Metoprolol and Xarelto for atrial fibrillation. Transfer from PCU to med surg. Continue to work with PT/OT for placement assessment and recommendations. 06/09: CIWA score of 2 this morning. On room air. No complaints today. Continue CIWA protocol for alcohol withdrawal symptoms management. Continue Rocephin for aspiration pneumonia and UTI. Continue Metoprolol and Xarelto for atrial fibrillation. Continue to work with PT/OT for placement assessment and recommendations. OT: would benefit from short term rehab. 06/10: Reached clinical stability. Decision made to discharge her home with family support. Rx of antibiotics Augmentin sent to pharmacy to finish the course for aspiration pneumonia and UTI. Follow up appointment with PCP made for her. All questions were answered prior to patient being physically discharged. Discharge diagnosis: delirium tremens; hepatic encephalopathy Time Spent with Patient Time attestation: Total time spent providing and/or coordinating discharge services: Time spent: Less than 30 minutes EXAM Constitutional Vitals: Temp Pulse Resp BP Pulse Ox 36.3 C 87 12 121/76 96 06/10/21 07:44 06/10/21 07:44 06/10/21 07:44 06/10/21 07:44 06/10/21 07:44 General appearance: cooperative and no acute distress Head Head exam: Present atraumatic and normocephalic Eye Eye exam: Present EOMI and PERRL ENT ENT exam: Present mucous membranes moist, normal exam and normal external ear exam Neck Neck exam: Present normal inspection; Absent lymphadenopathy, tenderness or thyromegaly Respiratory Respiratory exam: Absent accessory muscle use, respiratory distress or wheezes Cardiovascular Cardiovascular exam: Present normal rate and rhythm; Absent JVD GI/Abdominal GI/Abdominal exam: Present normal bowel sounds and soft; Absent organomegaly or tenderness Extremities Exam Extremities exam: Present full ROM, normal capillary refill and normal inspection; Absent tenderness Neurological Exam Neurological exam: Present alert, CN II-XII intact and oriented X3; Absent motor sensory deficit Psychiatric Psychiatric exam: Present normal affect and normal mood; Absent anxious or depressed Skin Skin exam: Present dry and intact Discharge Data Data Completed and Pending Labs on day of discharge: Labs from last 24 hours 06/10/21 06/10/21 06/10/21 05:54 05:54 05:54 WBC 5.5 RBC 2.96 L Hgb 10.0 L Hct 30.7 L MCV 103.7 H MCH 33.8 MCHC 32.6 RDW 14.8 H Plt Count 136 L MPV 10.4 Neut % (Auto) 67.5 Lymph % (Auto) 16.7 [place] % (Auto) 11.7 Eos % (Auto) 3.5 Baso % (Auto) 0.6 Lymph # (Auto) 0.91 L [place] # (Auto) 0.64 Eos # (Auto) 0.19 Baso # (Auto) 0.03 Absolute Neutrophils 3.68 Sodium 138 Potassium 3.3 Chloride 101 Carbon Dioxide 27 Anion Gap 10.0 BUN 9 Creatinine 0.7 GFR Calculation 98 Glucose 92 Calcium 8.8 Phosphorus 3.0 Magnesium 1.7 Total Bilirubin 1.5 H AST 183 H ALT 274 H Alkaline Phosphatase 86 Ammonia 27 Total Protein 5.9 Albumin 3.4 Globulin 2.5 Albumin/Globulin Ratio 1.4 Discharge Plan Patient/Caregiver Discharge Instructions Activity: increase activity as tolerated Diet: Regular Diet Prescriptions: New metoprolol tartrate 25 mg Tablet 12.5 mg PO BID Qty: 60 0RF Thera M Plus (ferrous fumarat) 9 mg iron-400 mcg Tablet 1 tab PO DAILY Qty: 30 0RF thiamine mononitrate (vit B1) 100 mg Tablet 100 mg PO DAILY Qty: 30 0RF lorazepam 1 mg Tablet 1 mg PO Q6HP PRN (Reason: Anxiety/Sedation) Qty: 10 0RF amoxicillin-pot clavulanate [Augmentin] 500-125 mg tablet 1 tab PO BID Qty: 10 0RF Continued levothyroxine 150 mcg tablet 150 mcg PO QDAY Qty: 90 0RF folic acid 1 mg tablet 1 mg PO QDAY Qty: 90 1RF potassium chloride [Klor-Con 10] 10 mEq tablet extended release 10 meq PO QDAY Qty: 30 0RF ondansetron 4 mg tablet,disintegrating 4 mg PO Q8H PRN (Reason: nausea and vomiting) Qty: 10 0RF furosemide 40 mg tablet 1 tab PO QDAY 0RF Xarelto 20 mg Tablet 20 mg PO QDAY 0RF Discontinued carvedilol 3.125 mg tablet 1 tab PO BID 0RF dofetilide 250 mcg capsule 1 cap PO BID 0RF Follow Up Plan Follow up with: Tremayne Narvaez MD [Primary Care Provider] - Patient Disposition: Home, Self-Care Prognosis: Critical Rehab Potential: Good I certify that the patient requires SNF services: No Overall status at discharge: patient is back to baseline Discharge Orders: Discharge Order (Routine); Ordered 06/10/21 Ordered By: Tang Blancas
== END 2021-06-10 14:00 | disposition home or self-care (01) | DRG 100 ==
LOC: ED 03:55 → ICU 09:29 → MEDSUR 06-08 15:30
PROVIDERS: ADMIT Internal Medicine; ATTEND Internal Medicine